=== PATIENT | male | born 1975 | race Caucasian/White ===

== ENCOUNTER 2016-08-06 18:48 | Emergency (ER) | payer MEDICARE, MEDICAID ==
--- NOTE | 2016-08-06 19:22 | EDM.PDOC ---
ED HPI GI/ABDOMINAL - General Stated Complaint: hemorrhoids, anxiety Time Seen by Provider: 08/06/16 18:49 Source: Reports: Patient History Limitations: Reports: No limitations - History of Present Illness INITIAL COMMENTS - FREE TEXT/NARRATIVE: 41 years old w m with h/o Diverticulosis, was on Abx for 2 weeks, came to the ed due to perianal complains, thinking he has hemorrhoids. Pt is scheduled for a colonoscopy on 08/20/2015 in [place]. Pt denies N/V/D. Symptom Onset Date: 07/30/16 Symptom Onset Time: 06:00 Timing/Duration: Reports: Day(s):, Week(s):, Intermittent Location: other (perianal) Quality: Reports: ache, burning Severity: mild Worsens with: Reports: defecating Associated Symptoms: Reports: denies other symptoms - Related Data Allergies/ADRs: Allergies Allergy/AdvReac Type Severity Reaction Status Date / Time amoxicillin Allergy Rash Verified 06/26/16 17:11 Penicillins Allergy Rash Verified 06/26/16 17:11 povidone-iodine Allergy Rash Verified 06/26/16 17:11 [From Betadine] soap [From Betadine] Allergy Rash Verified 06/26/16 17:11 Home Meds: Home Meds Citalopram Hydrobromide [Celexa] 20 tab PO DAILY 03/05/16 [History] clonazePAM [Klonopin] 1 tab PO ASDIRECTED PRN 03/05/16 [History] Hydrochlorothiazide 25 mg PO DAILY 06/06/16 [History] Past Medical History - Past Health History Medical/Surgical History: Denies Medical/Surgical History Cardiovascular History: Reports: Hypertension Gastrointestinal History: Reports: GERD, Other (see below) Other Gastrointestinal History: Lactose Intolerance Psychiatric History: Reports: ADHD, Anxiety, Bipolar, PTSD, Suicide attempt - Infectious Disease History Infectious Disease History: Reports: C-difficile, Shingles - Past Surgical History GI Surgical History: Reports: Small bowel, Other (see below) Other GI Surgeries/Procedures: Colostomy placed as an , has since been reversed. Musculoskeletal Surgical History: Reports: Other (see below) Other Musculoskeletal Surgeries/Procedures:: Leg surgery as a child. Social & Family History - Family History Family Medical History: Noncontributory - Tobacco Use Smoking Status *Q: Never Smoker Years of Tobacco use: 6 Second Hand Smoke Exposure: No - Caffeine Use Caffeine Use: Reports: Coffee, Energy drinks, Soda, Tea - Alcohol Use Days Per Week of Alcohol Use: 0 - Recreational Drug Use Recreational Drug Use: No Drug Use in Last 12 Months: No ED ROS GENERAL - Review of Systems Review Of Systems: See Below Constitutional: Reports: no symptoms HEENT: Reports: No symptoms Respiratory: Reports: No Symptoms Cardiovascular: Reports: No symptoms Endocrine: Reports: no symptoms GI/Abdominal: Reports: Other (peianal pain) : Reports: no symptoms Musculoskeletal: Reports: no symptoms Skin: Reports: no symptoms Neurological: Reports: No Symptoms Psychiatric: Reports: No symptoms Hematologic/Lymphatic: Reports: no symptoms Immunologic: Reports: no symptoms ED EXAM, GI/ABD - Physical Exam Exam: See Below Exam Limited By: No limitations General Appearance: alert, WD/WN, mild distress Eyes: bilateral: normal appearance, EOMI Ears: normal external exam, normal canal, hearing grossly normal Nose: normal inspection, normal mucosa, no blood Throat/Mouth: Normal inspection, Normal lips, Normal teeth, Normal gums, Normal oropharynx, Normal voice, No airway compromise Head: atraumatic, normocephalic Neck: normal inspection, supple, non-tender, full range of motion Respiratory/Chest: no respiratory distress, lungs clear, normal breath sounds, no accessory muscle use, chest non-tender Cardiovascular: normal peripheral pulses, regular rate, rhythm, no edema, no gallop, no JVD, no murmur, no rub GI/Abdominal: normal bowel sounds, soft, non tender, no organomegaly, no distention, no abnormal bruit, other (perianal ulcer/erythema) (Male) Exam: No hernia, Normal inspection Rectal (Males) Exam: Normal rectal tone, Other (perianal erythema and ulcer) Back Exam: normal inspection, full range of motion, NT Extremities: normal inspection, normal range of motion, non-tender, normal capillary refill, no pedal edema Neurological: alert, oriented, CN II-XII intact, normal cognition, normal gait, normal reflexes, no motor/sensory deficits Psychiatric: normal affect, normal mood Skin Exam: Warm, Dry, Intact, Normal color, Other (please see not above) Lymphatic: no adenopathy Course - Vital Signs Text/Narrative:: 41 years old w m with h/o Diverticulosis, was on Abx for 2 weeks, came to the ed due to perianal complains, thinking he has hemorrhoids. Pt is scheduled for a colonoscopy on 08/20/2015 in [place]. Pt denies N/V/D. PE: Perianal erythema and ulcer Impression: Perianal erythema with ulcer Plan: Sitzbath and f/u on 08/19/2016 as scheduled Departure - Departure Time of Disposition: 19:28 Disposition: Home, Self-Care 01 Condition: good Clinical Impression: Erythema of perianal area Additional Instructions: Please apply sitzbath twice daily, please f/u as scheduled on 08/19/2016 as scheduled, please come back to the ed if your symptoms get worse acutely
[2016-08-06 20:01] VITALS: BP 142/90
== END 2016-08-06 20:02 | disposition home or self-care (01) ==
LOC: FB.ED 18:48
DX: L53.8 Other specified erythematous conditions (principal); I10 Essential (primary) hypertension; K21.9 Gastro-esophageal reflux disease without esophagitis; F41.9 Anxiety disorder, unspecified; Z88.0 Allergy status to penicillin; Z88.1 Allergy status to other antibiotic agents; Z91.09 Other allergy status, other than to drugs and biological substances; Z79.899 Other long term (current) drug therapy
CPT/HCPCS: 99282

== ENCOUNTER 2016-08-16 20:09 | Emergency (ER) | payer MEDICARE, MEDICAID ==
[2016-08-16 20:27] VITALS: BP 148/94
[2016-08-16] MEDS ORDERED: Potassium Chloride 20 MEQ Tab.ER PO ONE (21:41)
--- NOTE | 2016-08-16 21:42 | EDM.PDOC ---
ED HPI GI/ABDOMINAL - General Chief Complaint: Abdominal Pain Stated Complaint: LOW ABD PAIN Time Seen by Provider: 08/16/16 20:20 Source: Reports: Patient History Limitations: Reports: No limitations - History of Present Illness INITIAL COMMENTS - FREE TEXT/NARRATIVE: 41 years old w m came to the ed due to mild discomfort at his LLQ of his abdomen. Pt had an abscess at his sigmoid Dx'd 3 months ago. No trauma, no N/V/ D. No dysuria. Pt runs daily marathon. Symptom Onset Date: 08/14/16 Symptom Onset Time: 07:00 Location: [facility] Quality: Reports: fullness Severity: mild Improves with: Reports: lying down Worsens with: Reports: sitting up Context: Reports: other (running) Associated Symptoms: Reports: denies other symptoms - Related Data Allergies/ADRs: Allergies Allergy/AdvReac Type Severity Reaction Status Date / Time amoxicillin Allergy Rash Verified 08/16/16 20:18 Penicillins Allergy Rash Verified 08/16/16 20:18 povidone-iodine Allergy Rash Verified 08/16/16 20:18 [From Betadine] soap [From Betadine] Allergy Rash Verified 08/16/16 20:18 Home Meds: Home Meds Citalopram Hydrobromide [Celexa] 20 tab PO DAILY 03/05/16 [History] clonazePAM [Klonopin] 1 tab PO ASDIRECTED PRN 03/05/16 [History] Hydrochlorothiazide 25 mg PO DAILY 06/06/16 [History] Past Medical History - Past Health History Medical/Surgical History: Denies Medical/Surgical History Cardiovascular History: Reports: Hypertension Gastrointestinal History: Reports: GERD, Other (see below) Other Gastrointestinal History: Lactose Intolerance Psychiatric History: Reports: ADHD, Anxiety, Bipolar, PTSD, Suicide attempt - Infectious Disease History Infectious Disease History: Reports: C-difficile, Shingles - Past Surgical History GI Surgical History: Reports: Small bowel, Other (see below) Other GI Surgeries/Procedures: Colostomy placed as an , has since been reversed. Musculoskeletal Surgical History: Reports: Other (see below) Other Musculoskeletal Surgeries/Procedures:: Leg surgery as a child. Social & Family History - Family History Family Medical History: Noncontributory - Tobacco Use Smoking Status *Q: Never Smoker Years of Tobacco use: 6 Second Hand Smoke Exposure: No - Caffeine Use Caffeine Use: Reports: Soda - Alcohol Use Days Per Week of Alcohol Use: 0 - Recreational Drug Use Recreational Drug Use: No Drug Use in Last 12 Months: No ED ROS GENERAL - Review of Systems Review Of Systems: See Below Constitutional: Reports: no symptoms HEENT: Reports: No symptoms Respiratory: Reports: No Symptoms Cardiovascular: Reports: No symptoms Endocrine: Reports: no symptoms GI/Abdominal: Reports: Other (minimal discomfort LLQ of abdomen) : Reports: no symptoms Musculoskeletal: Reports: no symptoms Skin: Reports: no symptoms Neurological: Reports: No Symptoms Psychiatric: Reports: Anxiety Hematologic/Lymphatic: Reports: no symptoms Immunologic: Reports: no symptoms ED EXAM, GI/ABD - Physical Exam Exam: See Below Exam Limited By: No limitations General Appearance: alert, WD/WN, no apparent distress Eyes: bilateral: normal appearance Ears: normal external exam Nose: normal inspection Throat/Mouth: Normal inspection Head: atraumatic, normocephalic Neck: normal inspection, supple, non-tender Respiratory/Chest: no respiratory distress, lungs clear, normal breath sounds, no accessory muscle use Cardiovascular: normal peripheral pulses, regular rate, rhythm, no edema GI/Abdominal: tenderness (minimal LLQ abd. tenderness) (Male) Exam: No hernia, Normal inspection Rectal (Males) Exam: Deferred Back Exam: normal inspection, full range of motion Extremities: normal inspection, normal range of motion, non-tender, no pedal edema, normal capillary refill Neurological: alert Psychiatric: normal affect, normal mood Skin Exam: Warm, Dry, Intact, Normal color, No rash Lymphatic: no adenopathy Course - Vital Signs Text/Narrative:: 41 years old w m came to the ed due to mild discomfort at his LLQ of his abdomen. Pt had an abscess at his sigmoid Dx'd 3 months ago. No trauma, no N/V/ D. No dysuria. Pt runs daily marathon. PE: Minor discomfort LLQ of abdomen. Labs: NL WBC potassium 3.2 Impression: Hypokalmia Tx: Potassium 40meq Reexam: Improved Plan: D/C with instructions Last Recorded V/S: Last Vital Signs Temp 37.1 C 08/16/16 20:20 Pulse 85 08/16/16 20:20 Resp 18 08/16/16 20:20 BP 148/94 H 08/16/16 20:20 Pulse Ox 98 08/16/16 20:20 - Orders/Labs/Meds Labs: Laboratory Tests 08/16/16 08/16/16 08/16/16 Range/Units 20:35 20:35 20:35 WBC 5.4 (4.5-12.0) X10-3/uL RBC 4.64 (4.30-5.75) x10(6)uL Hgb 13.7 (11.5-15.5) g/dL Hct 39.7 (30.0-51.3) % MCV 85.4 (80-96) fL MCH 29.6 (27.7-33.6) pg MCHC 34.7 (32.2-35.4) g/dL RDW 14.1 (11.5-15.5) % Plt Count 182 (125-369) X10(3)uL MPV 9.0 (7.4-10.4) fL Neut % (Auto) 67.4 (46-82) % Lymph % (Auto) 23.2 (13-37) % [place] % (Auto) 7.3 (4-12) % Eos % (Auto) 1 (1.0-5.0) % Baso % (Auto) 1 (0-2) % Neut # (Auto) 3.6 (1.6-8.3) # Lymph # (Auto) 1.3 (0.6-5.0) # [place] # (Auto) 0.4 (0.0-1.3) # Eos # (Auto) 0.0 (0.0-0.8) # Baso # (Auto) 0.1 (0.0-0.2) # Sodium 138 (135-145) mmol/L Potassium 3.2 L (3.5-5.3) mmol/L Chloride 101 (100-110) mmol/L Carbon Dioxide 30 H (23-29) mmol/L BUN 15 (5-20) mg/dL Creatinine 1.0 (0.6-1.3) mg/dL Est Cr Clr Drug Dosing TNP Estimated GFR (MDRD) > 60 (>60) BUN/Creatinine Ratio 15.0 (9-20) Glucose 98 (80-116) mg/dL Calcium 10.5 H (8.6-10.2) mg/dL C-Reactive Protein < 0.5 (0.0-1.0) mg/dL Urine Color (YELLOW) Urine Appearance (CLEAR) Urine pH (5.0-6.5) Ur Specific [place] (1.010-1.025) Urine Protein (NEGATIVE) mg/dL Urine Glucose (UA) (NEGATIVE) mg/dL Urine Ketones (NEGATIVE) mg/dL Urine Occult Blood (NEGATIVE) Urine Nitrite (NEGATIVE) Urine Bilirubin (NEGATIVE) Urine Urobilinogen (NEGATIVE) mg/dL Ur Leukocyte Esterase (NEGATIVE) Urine RBC (0) Urine WBC (0) Ur Squamous Epith Cells (NS,R,O) Urine Bacteria (NS) Urine Opiates Screen Negative (NEGATIVE) Ur Oxycodone Screen Negative (NEGATIVE) Ur Propoxyphene Screen Negative (NEGATIVE) Ur Barbituates Screen Negative (NEGATIVE) Ur Tricyclics Screen Negative (NEGATIVE) Ur Phencyclidine Scrn Negative (NEGATIVE) Ur Amphetamine Screen Negative (NEGATIVE) Urine MDMA Screen Negative (NEGATIVE) U Benzodiazepines Scrn Negative (NEGATIVE) U Cocaine Metab Screen Negative (NEGATIVE) U Marijuana (THC) Screen Negative (NEGATIVE) 08/16/16 Range/Units 20:35 WBC (4.5-12.0) X10-3/uL RBC (4.30-5.75) x10(6)uL Hgb (11.5-15.5) g/dL Hct (30.0-51.3) % MCV (80-96) fL MCH (27.7-33.6) pg MCHC (32.2-35.4) g/dL RDW (11.5-15.5) % Plt Count (125-369) X10(3)uL MPV (7.4-10.4) fL Neut % (Auto) (46-82) % Lymph % (Auto) (13-37) % [place] % (Auto) (4-12) % Eos % (Auto) (1.0-5.0) % Baso % (Auto) (0-2) % Neut # (Auto) (1.6-8.3) # Lymph # (Auto) (0.6-5.0) # [place] # (Auto) (0.0-1.3) # Eos # (Auto) (0.0-0.8) # Baso # (Auto) (0.0-0.2) # Sodium (135-145) mmol/L Potassium (3.5-5.3) mmol/L Chloride (100-110) mmol/L Carbon Dioxide (23-29) mmol/L BUN (5-20) mg/dL Creatinine (0.6-1.3) mg/dL Est Cr Clr Drug Dosing Estimated GFR (MDRD) (>60) BUN/Creatinine Ratio (9-20) Glucose (80-116) mg/dL Calcium (8.6-10.2) mg/dL C-Reactive Protein (0.0-1.0) mg/dL Urine Color Yellow (YELLOW) Urine Appearance Clear (CLEAR) Urine pH 7.0 H (5.0-6.5) Ur Specific [place] 1.015 (1.010-1.025) Urine Protein Negative (NEGATIVE) mg/dL Urine Glucose (UA) Normal (NEGATIVE) mg/dL Urine Ketones Negative (NEGATIVE) mg/dL Urine Occult Blood Negative (NEGATIVE) Urine Nitrite Negative (NEGATIVE) Urine Bilirubin Negative (NEGATIVE) Urine Urobilinogen Normal (NEGATIVE) mg/dL Ur Leukocyte Esterase Negative (NEGATIVE) Urine RBC 0-5 (0) Urine WBC 0-5 (0) Ur Squamous Epith Cells Few H (NS,R,O) Urine Bacteria Few H (NS) Urine Opiates Screen (NEGATIVE) Ur Oxycodone Screen (NEGATIVE) Ur Propoxyphene Screen (NEGATIVE) Ur Barbituates Screen (NEGATIVE) Ur Tricyclics Screen (NEGATIVE) Ur Phencyclidine Scrn (NEGATIVE) Ur Amphetamine Screen (NEGATIVE) Urine MDMA Screen (NEGATIVE) U Benzodiazepines Scrn (NEGATIVE) U Cocaine Metab Screen (NEGATIVE) U Marijuana (THC) Screen (NEGATIVE) Meds: Medications Discontinued Medications Generic Name Dose Route Start Last Admin Trade Name Freq PRN Reason Stop Dose Admin Potassium Chloride 40 meq 08/16/16 21:41 08/16/16 21:44 Klor-Con M20 PO 08/16/16 21:42 40 meq ONETIME ONE Administration Departure - Departure Time of Disposition: 21:42 Disposition: Home, Self-Care 01 Condition: good Clinical Impression: Hypokalemia Referrals: Eliel Flores MD [Primary Care Provider] - Forms: ED Department Discharge Additional Instructions: Please f/u, please come back if symptoms get worse acutely.
== END 2016-08-16 21:50 | disposition home or self-care (01) ==
LOC: FB.ED 20:09
DX: E87.6 Hypokalemia (principal); R10.32 Left lower quadrant pain; I10 Essential (primary) hypertension; K21.9 Gastro-esophageal reflux disease without esophagitis; F31.9 Bipolar disorder, unspecified; F41.9 Anxiety disorder, unspecified; Z88.1 Allergy status to other antibiotic agents; Z88.0 Allergy status to penicillin; Z88.8 Allergy status to other drugs, medicaments and biological substances; Z79.899 Other long term (current) drug therapy; Z91.09 Other allergy status, other than to drugs and biological substances
CPT/HCPCS: 36415; 80048; 80305; 81001; 85025; 86140; 99283; 99284; A9270

== ENCOUNTER 2016-08-21 01:54 | Emergency (ER) | payer MEDICARE, MEDICAID ==
[2016-08-21 02:15] VITALS: BP 159/98
--- NOTE | 2016-08-21 02:18 | EDM.PDOC ---
ED HPI GENERAL MEDICAL PROBLEM - General Chief Complaint: General Stated Complaint: TOOTH PAIN Time Seen by Provider: 08/21/16 02:11 Source of Information: Reports: Patient History Limitations: Reports: No limitations - History of Present Illness INITIAL COMMENTS - FREE TEXT/NARRATIVE: 41 years old w m came to the ed due to worsening of tooth ache> pt has seen a dentist a few days ago and was told to see max facial surgeon to pull the the tooth. No trauma, pt does not smoke or drink. Pt was in this ed for various issues. pain is rated as 10/10. Pt denies any other acute medical issues at this time. Onset: gradual Onset Date: 08/20/16 Onset Time: 08:00 Duration: Day(s):, Intermittent Location: Reports: face Quality: Reports: Burning, Dull, Pressure, Stabbing Severity: moderate Improves with: Reports: Medication Worsens with: Reports: Cold therapy Associated Symptoms: Reports: denies other symptoms Tooth/Teeth Pain Score (Numeric/FACES): 10 - Related Data Allergies Allergy/AdvReac Type Severity Reaction Status Date / Time amoxicillin Allergy Rash Verified 08/21/16 02:09 Penicillins Allergy Rash Verified 08/21/16 02:09 povidone-iodine Allergy Rash Verified 08/21/16 02:09 [From Betadine] soap [From Betadine] Allergy Rash Verified 08/21/16 02:09 Home Meds: Home Meds Citalopram Hydrobromide [Celexa] 20 tab PO DAILY 03/05/16 [History] clonazePAM [Klonopin] 1 tab PO ASDIRECTED PRN 03/05/16 [History] Hydrochlorothiazide 25 mg PO DAILY 06/06/16 [History] Clindamycin HCl [Cleocin] 300 mg PO QID 08/21/16 [History] Past Medical History - Past Health History Medical/Surgical History: Denies Medical/Surgical History Cardiovascular History: Reports: Hypertension Gastrointestinal History: Reports: GERD, Other (see below) Other Gastrointestinal History: Lactose Intolerance Psychiatric History: Reports: ADHD, Anxiety, Bipolar, PTSD, Suicide attempt - Infectious Disease History Infectious Disease History: Reports: C-difficile, Shingles - Past Surgical History GI Surgical History: Reports: Small bowel, Other (see below) Other GI Surgeries/Procedures: Colostomy placed as an , has since been reversed. Musculoskeletal Surgical History: Reports: Other (see below) Other Musculoskeletal Surgeries/Procedures:: Leg surgery as a child. Social & Family History - Family History Family Medical History: Noncontributory - Tobacco Use Smoking Status *Q: Never Smoker Years of Tobacco use: 6 Second Hand Smoke Exposure: No - Caffeine Use Caffeine Use: Reports: Soda - Alcohol Use Days Per Week of Alcohol Use: 0 - Recreational Drug Use Recreational Drug Use: No Drug Use in Last 12 Months: No ED ROS GENERAL - Review of Systems Review Of Systems: See Below Constitutional: Reports: no symptoms HEENT: Reports: Throat pain Respiratory: Reports: No Symptoms Cardiovascular: Reports: No symptoms Endocrine: Reports: no symptoms GI/Abdominal: Reports: No symptoms : Reports: no symptoms Musculoskeletal: Reports: no symptoms Skin: Reports: no symptoms Neurological: Reports: No Symptoms Psychiatric: Reports: No symptoms Hematologic/Lymphatic: Reports: no symptoms Immunologic: Reports: no symptoms ED EXAM, GENERAL - Physical Exam Exam: See Below Exam Limited By: No limitations General Appearance: alert, WD/WN, mild distress Eye Exam: bilateral eye: normal inspection Ears: normal external exam, normal canal Ear Exam: bilateral ear: auricle normal Nose: normal inspection, normal mucosa, no blood Throat/Mouth: Other (poor dentition, Tooth# 20 decyed) Head: atraumatic, normocephalic Neck: normal inspection, supple, non-tender, full range of motion Respiratory/Chest: no respiratory distress, lungs clear, normal breath sounds, no accessory muscle use, chest non-tender Cardiovascular: normal peripheral pulses, regular rate, rhythm, no edema, no JVD Peripheral Pulses: 2+: femoral (L), femoral (R) GI/Abdominal: normal bowel sounds, soft, non tender (Male) Exam: Deferred Rectal (Males) Exam: Deferred Back Exam: normal inspection, full range of motion Extremities: normal inspection, normal range of motion, non-tender, no pedal edema, normal capillary refill Neurological: alert, oriented, CN II-XII intact, normal cognition, normal gait, no motor/sensory deficits Psychiatric: normal affect, normal mood Skin Exam: Warm, Dry, Intact, Normal color, No rash Lymphatic: no adenopathy Course - Vital Signs Text/Narrative:: 41 years old w m came to the ed due to worsening of tooth ache> pt has seen a dentist a few days ago and was told to see max facial surgeon to pull the the tooth. No trauma, pt does not smoke or drink. Pt was in this ed for various issues. pain is rated as 10/10. Pt denies any other acute medical issues at this time. Pt is on clindamycin. PE: Poor dentition Tooth #20 decayed Impression: poor dentition Tx: Pain meds. Plan: D/C home with instructions Last Recorded V/S: Last Vital Signs Temp 35.3 C 08/21/16 02:11 Pulse 53 L 08/21/16 02:11 Resp 20 08/21/16 02:11 BP 159/98 H 08/21/16 02:11 Pulse Ox 100 08/21/16 02:11 Departure - Departure Time of Disposition: 02:23 Disposition: Home, Self-Care 01 Condition: good Clinical Impression: Toothache, Gingivitis, Poor dentition Instructions: Tooth Injuries, [id number] Referrals: Eliel Flores MD [Primary Care Provider] - Forms: ED Department Discharge Additional Instructions: Please see a dentis a.s.a.p, please take tylenol/motrin/percoset for pain, please cont ABX. please come back if your symptoms get worse acutely.
[2016-08-21] MEDS ORDERED: Acetaminophen/oxyCODONE 325-5 MG Tab PO ONE (02:24)
== END 2016-08-21 02:30 | disposition home or self-care (01) ==
LOC: FB.ED 01:54
DX: K05.10 Chronic gingivitis, plaque induced (principal); K08.89 Other specified disorders of teeth and supporting structures; K00.7 Teething syndrome; I10 Essential (primary) hypertension; K21.9 Gastro-esophageal reflux disease without esophagitis; F41.9 Anxiety disorder, unspecified; F31.9 Bipolar disorder, unspecified; Z88.1 Allergy status to other antibiotic agents; Z88.0 Allergy status to penicillin; Z91.09 Other allergy status, other than to drugs and biological substances; Z79.899 Other long term (current) drug therapy
CPT/HCPCS: 99282; A9270; 99283

== ENCOUNTER 2016-08-29 14:19 | Emergency (ER) | payer MEDICARE, MEDICAID ==
[2016-08-29 15:09] VITALS: BP 157/105
--- NOTE | 2016-08-29 16:10 | EDM.PDOC ---
ED HPI Trauma - General Chief Complaint: Lower Extremity Injury/Pain Stated Complaint: lt foot pain and jaw pain Time Seen by Provider: 08/29/16 15:05 Source: Reports: Patient History Limitations: Reports: No limitations - History of Present Illness INITIAL COMMENTS - FREE TEXT/NARRATIVE: c/o jaw pain and swollen L foot pt had tooth removed ~6d ago in [place] by an oral surgeon, he was on clindamycin but stopped it d/t "red shelby" on legs altho not clear that he had an allergy, off of pain meds, still some pain there, not taking meds for the pain, pain not severe, no swell, no d/c, no fever his main concern is mild edema of both feet which he has had before, did have a BUN/creat 22/1.4 in ED 1w ago, previously 15/1.0 2w ago h/o abd abscess 2m ago, in hospital in [place] x 3d, tx antbxs, no surgery, thought d/t possible diverticuli, located next to colon, colonoscopy planned on 08/05 but pt did not have transportation to [place] on HCTZ and lisinopril daily which may account for his borderline renal function u/a neg 2w ago, CRP <0.5 2w ago Allergies/ADRs: Allergies amoxicillin Allergy (Verified 08/29/16 14:34) Rash Penicillins Allergy (Verified 08/29/16 14:34) Rash povidone-iodine [From Betadine] Allergy (Verified 08/29/16 14:34) Rash soap [From Betadine] Allergy (Verified 08/29/16 14:34) Rash Home Medications: Ambulatory Orders Citalopram Hydrobromide [Celexa] 20 tab PO DAILY 03/05/16 [Confirmed 08/29/16] clonazePAM [Klonopin] 1 tab PO ASDIRECTED PRN 03/05/16 [Confirmed 08/29/16] Hydrochlorothiazide 25 mg PO DAILY 06/06/16 [Confirmed 08/29/16] Potassium Chloride 10 meq PO DAILY #30 capsule.er 08/29/16 Past Medical History - Past Health History Medical/Surgical History: Denies Medical/Surgical History Cardiovascular History: Reports: Hypertension Gastrointestinal History: Reports: GERD, Other (see below) Other Gastrointestinal History: Lactose Intolerance Psychiatric History: Reports: ADHD, Anxiety, Bipolar, PTSD, Suicide attempt - Infectious Disease History Infectious Disease History: Reports: C-difficile, Shingles - Past Surgical History GI Surgical History: Reports: Small bowel, Other (see below) Other GI Surgeries/Procedures: Colostomy placed as an , has since been reversed. Musculoskeletal Surgical History: Reports: Other (see below) Other Musculoskeletal Surgeries/Procedures:: Leg surgery as a child. Social & Family History - Family History Family Medical History: Noncontributory - Tobacco Use Smoking Status *Q: Never Smoker Years of Tobacco use: 6 Second Hand Smoke Exposure: No - Caffeine Use Caffeine Use: Reports: Soda - Alcohol Use Days Per Week of Alcohol Use: 0 - Recreational Drug Use Recreational Drug Use: No Drug Use in Last 12 Months: No Review of Systems - Review of Systems Review Of Systems: See Below Constitutional: Reports: no symptoms Eyes: Reports: no symptoms Ears: Reports: no symptoms Nose: Reports: no symptoms Mouth/Throat: Reports: other (dental pain) Respiratory: Reports: No Symptoms Cardiovascular: Reports: edema GI/Abdominal: Reports: No symptoms Genitourinary: Reports: no symptoms Musculoskeletal: Reports: no symptoms Skin: Reports: no symptoms Neurological: Reports: No Symptoms Psychiatric: Reports: no symptoms Trauma Exam - Physical Exam Exam: See Below Exam Limited By: No limitations General Appearance: Reports: alert, WD/WN, no apparent distress Head: Reports: atraumatic, normocephalic Eyes: bilateral eye: EOMI, normal inspection, PERRL Ears: Reports: normal external exam, hearing grossly normal Nose: Reports: normal inspection, normal mucousa, no blood Throat/Mouth: Reports: Normal inspection, Normal lips, Normal gums, Normal oropharynx, Normal voice, No airway compromise, Other (tooth #17 missing, no swell, no red, no d/c, appears to be healing well, mild tender to palpation with tongue depressor, neck with no cervical LNs, no face swell) Neck: Reports: non-tender, full range of motion, normal alignment, normal inspection Respiratory Exam: Reports: no respiratory distress, lungs clear, normal breath sounds Cardiovascular: Reports: regular rate, rhythm, no edema, no gallop, no murmur, no rub Back: Reports: full range of motion, normal inspection, non-tender Extremities: Reports: no evidence of injury, normal range of motion, non-tender , other (1+ edema to knees b/l including feet and ankle, L slight greater than R , no cords, no Homans) Neurologic: Reports: 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 II-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 nml as tested, no motor/sensory deficits, alert , normal mood/affect, oriented x 3 Skin: Reports: Normal color, Warm/dry Course - Vital Signs Last Recorded V/S: Last Vital Signs Temp 36.3 C 08/29/16 14:30 Pulse 59 L 08/29/16 14:30 Resp 18 08/29/16 14:30 BP 157/105 H 08/29/16 15:02 Pulse Ox 100 08/29/16 14:30 - Orders/Labs/Meds Labs: Laboratory Tests 08/29/16 08/29/16 08/29/16 Range/Units 15:30 15:30 15:30 WBC 4.6 (4.5-12.0) X10-3/uL RBC 4.70 (4.30-5.75) x10(6)uL Hgb 13.8 (11.5-15.5) g/dL Hct 40.5 (30.0-51.3) % MCV 86.1 (80-96) fL MCH 29.4 (27.7-33.6) pg MCHC 34.1 (32.2-35.4) g/dL RDW 13.5 (11.5-15.5) % Plt Count 177 (125-369) X10(3)uL MPV 7.6 (7.4-10.4) fL Neut % (Auto) 73.9 (46-82) % Lymph % (Auto) 19.1 (13-37) % [place] % (Auto) 5.3 (4-12) % Eos % (Auto) 1 (1.0-5.0) % Baso % (Auto) 0 (0-2) % Neut # (Auto) 3.4 (1.6-8.3) # Lymph # (Auto) 0.9 (0.6-5.0) # [place] # (Auto) 0.2 (0.0-1.3) # Eos # (Auto) 0.1 (0.0-0.8) # Baso # (Auto) 0.0 (0.0-0.2) # D-Dimer, Quantitative 105 (100-400) ng/mL Sodium 138 (135-145) mmol/L Potassium 3.3 L (3.5-5.3) mmol/L Chloride 100 (100-110) mmol/L Carbon Dioxide 30 H (23-29) mmol/L BUN 13 (5-20) mg/dL Creatinine 1.0 (0.6-1.3) mg/dL Est Cr Clr Drug Dosing TNP Estimated GFR (MDRD) > 60 (>60) BUN/Creatinine Ratio 13.0 (9-20) Glucose 92 (80-116) mg/dL Calcium 10.4 H (8.6-10.2) mg/dL Total Bilirubin 0.8 (0.1-1.3) mg/dL AST 28 H (5-27) IU/L ALT 37 H D (14-26) IU/L Alkaline Phosphatase 45 L (56-112) IU/L Troponin I (0.02-0.06) NG/ML C-Reactive Protein < 0.5 (0.0-1.0) mg/dL B-Natriuretic Peptide (0-100) pg/mL Total Protein 7.2 (6.0-8.0) g/dL Albumin 4.3 (3.5-5.2) g/dL Globulin 2.9 g/dL Albumin/Globulin Ratio 1.5 08/29/16 08/29/16 Range/Units 15:30 15:30 WBC (4.5-12.0) X10-3/uL RBC (4.30-5.75) x10(6)uL Hgb (11.5-15.5) g/dL Hct (30.0-51.3) % MCV (80-96) fL MCH (27.7-33.6) pg MCHC (32.2-35.4) g/dL RDW (11.5-15.5) % Plt Count (125-369) X10(3)uL MPV (7.4-10.4) fL Neut % (Auto) (46-82) % Lymph % (Auto) (13-37) % [place] % (Auto) (4-12) % Eos % (Auto) (1.0-5.0) % Baso % (Auto) (0-2) % Neut # (Auto) (1.6-8.3) # Lymph # (Auto) (0.6-5.0) # [place] # (Auto) (0.0-1.3) # Eos # (Auto) (0.0-0.8) # Baso # (Auto) (0.0-0.2) # D-Dimer, Quantitative (100-400) ng/mL Sodium (135-145) mmol/L Potassium (3.5-5.3) mmol/L Chloride (100-110) mmol/L Carbon Dioxide (23-29) mmol/L BUN (5-20) mg/dL Creatinine (0.6-1.3) mg/dL Est Cr Clr Drug Dosing Estimated GFR (MDRD) (>60) BUN/Creatinine Ratio (9-20) Glucose (80-116) mg/dL Calcium (8.6-10.2) mg/dL Total Bilirubin (0.1-1.3) mg/dL AST (5-27) IU/L ALT (14-26) IU/L Alkaline Phosphatase (56-112) IU/L Troponin I < 0.01 L (0.02-0.06) NG/ML C-Reactive Protein (0.0-1.0) mg/dL B-Natriuretic Peptide 55 (0-100) pg/mL Total Protein (6.0-8.0) g/dL Albumin (3.5-5.2) g/dL Globulin g/dL Albumin/Globulin Ratio - Re-Assessments/Exams Free Text/Narrative Re-Assessment/Exam: 08/29/16 16:18 labs reviewed, has had Rx in past for K put not taken it, "I just buy a bunch of spinach and eat a lot of that", renal function now wnl, no cardiac issues, edema c/w gravity Departure - Departure Time of Disposition: 16:19 Disposition: DC/Tfer W/I Hosp To Swing 61 Condition: good Clinical Impression: Dependent edema, Hypokalemia Prescriptions: Potassium Chloride 10 meq PO DAILY #30 capsule.er Forms: ED Department Discharge Additional Instructions: Continue current meds. To replace potassium, take 10 meq 1 tab daily. For pain and inflammation, take ibuprofen 200 mg 3 tabs and acetaminophen 325 mg 2 tabs 4 times a day. May elevate legs in evening to allow gravity to help drain fluid from legs. See your doctor in 2-3 days.
== END 2016-08-29 16:25 | disposition home or self-care (01) ==
LOC: FB.ED 14:19
DX: E87.6 Hypokalemia (principal); R60.0 Localized edema; I10 Essential (primary) hypertension; K21.9 Gastro-esophageal reflux disease without esophagitis; F41.9 Anxiety disorder, unspecified; F31.9 Bipolar disorder, unspecified; Z88.0 Allergy status to penicillin; Z88.1 Allergy status to other antibiotic agents; Z98.890 Other specified postprocedural states; Z91.09 Other allergy status, other than to drugs and biological substances
CPT/HCPCS: 36415; 80053; 83880; 84484; 85025; 85379; 86140; 99283

== ENCOUNTER 2016-09-14 21:47 | Emergency (ER) | payer MEDICARE, MEDICAID ==
--- NOTE | 2016-09-14 22:40 | EDM.PDOC ---
ED HPI GENERAL MEDICAL PROBLEM - General Chief Complaint: General Stated Complaint: GENERAL Time Seen by Provider: 09/14/16 22:00 Source of Information: Reports: Patient, Old records History Limitations: Reports: No limitations - History of Present Illness INITIAL COMMENTS - FREE TEXT/NARRATIVE: Hubert is known to this ED with a PMH of anxiety disorder and probable PTSD since 2004. This evening he was experiencing a strange sensation of tingling in his ears, and was concerned that his BP was elevated. There was no corresponding headache, dizziness, visual disturbance, nausea, palpitations or dyspnea. Nursing confirmed BPs were normotensive, and sxs seemed to improve. He is also reporting a vague sensation in the LLQ and was concerned about a disorder of the bowel. 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 There is no apurva abdominal pain, nausea, diarrhea or constipation. He takes numerous psychotrophic meds. He denies substance abuse. - Related Data Allergies Allergy/AdvReac Type Severity Reaction Status Date / Time amoxicillin Allergy Rash Verified 08/29/16 14:34 Penicillins Allergy Rash Verified 08/29/16 14:34 povidone-iodine Allergy Rash Verified 08/29/16 14:34 [From Betadine] soap [From Betadine] Allergy Rash Verified 08/29/16 14:34 Home Meds: Home Meds Citalopram Hydrobromide [Celexa] 20 tab PO DAILY 03/05/16 [History] clonazePAM [Klonopin] 1 tab PO ASDIRECTED PRN 03/05/16 [History] Hydrochlorothiazide 25 mg PO DAILY 06/06/16 [History] Potassium Chloride 10 meq PO DAILY #30 capsule.er 08/29/16 [Rx] Past Medical History - Past Health History Medical/Surgical History: Denies Medical/Surgical History Cardiovascular History: Reports: Hypertension Gastrointestinal History: Reports: GERD, Other (see below) Other Gastrointestinal History: Lactose Intolerance Psychiatric History: Reports: ADHD, Anxiety, Bipolar, PTSD, Suicide attempt - Infectious Disease History Infectious Disease History: Reports: C-difficile, Shingles - Past Surgical History GI Surgical History: Reports: Small bowel, Other (see below) Other GI Surgeries/Procedures: Colostomy placed as an , has since been reversed. Musculoskeletal Surgical History: Reports: Other (see below) Other Musculoskeletal Surgeries/Procedures:: Leg surgery as a child. Social & Family History - Family History Family Medical History: Noncontributory - Tobacco Use Smoking Status *Q: Never Smoker Years of Tobacco use: 6 Second Hand Smoke Exposure: No - Caffeine Use Caffeine Use: Reports: None - Alcohol Use Days Per Week of Alcohol Use: 0 - Recreational Drug Use Recreational Drug Use: No Drug Use in Last 12 Months: No ED ROS GENERAL - Review of Systems Review Of Systems: See Below Constitutional: Reports: no symptoms HEENT: Reports: Other (tingling in ears) Respiratory: Reports: No Symptoms Cardiovascular: Reports: No symptoms Endocrine: Reports: no symptoms GI/Abdominal: Reports: Other (tingling LLQ) : Reports: no symptoms Musculoskeletal: Reports: no symptoms Skin: Reports: no symptoms Neurological: Reports: No Symptoms Psychiatric: Reports: Anxiety Hematologic/Lymphatic: Reports: no symptoms Immunologic: Reports: no symptoms ED EXAM, GENERAL - Physical Exam Exam: See Below Exam Limited By: No limitations General Appearance: alert, WD/WN, no apparent distress, anxious Eye Exam: bilateral eye: normal fundi, normal inspection Ears: normal external exam, normal canal, hearing grossly normal, normal TMs Nose: normal inspection Throat/Mouth: Normal inspection, Normal lips, Normal teeth, Normal gums, Normal oropharynx, Normal voice Head: normocephalic Neck: normal inspection, supple, non-tender Respiratory/Chest: lungs clear Cardiovascular: regular rate, rhythm GI/Abdominal: normal bowel sounds, soft, non tender, no organomegaly, no distention, no mass (Male) Exam: No hernia Back Exam: normal inspection Extremities: normal inspection Neurological: alert, oriented, CN II-XII intact, normal cognition, normal gait, no motor/sensory deficits Psychiatric: normal affect, anxious Skin Exam: Warm, Dry, Intact, Normal color Lymphatic: no adenopathy Course - Vital Signs Text/Narrative:: Hubert remained stable at the [facility] ED, and interview continued reviewing past events associated with PTSD, He is currently x 2 years, with surviving parents. Last Recorded V/S: Last Vital Signs Temp 37.0 C 09/14/16 22:05 Pulse 76 09/14/16 22:05 Resp 18 09/14/16 22:05 BP 143/98 H 09/14/16 22:05 Pulse Ox 97 09/14/16 22:05 Departure - Departure Time of Disposition: 22:40 Disposition: Home, Self-Care 01 Condition: fair Clinical Impression: Post traumatic stress disorder (PTSD) Forms: ED Department Discharge - Problem List & Annotations (1) Post traumatic stress disorder (PTSD) SNOMED Code(s): 64186889 Code(s): F43.10 - POST-TRAUMATIC STRESS DISORDER, UNSPECIFIED Status: Acute Current Visit: Yes Annotation/Comment:: Somatic sxs appear consistent with underlying anxiety disorder such as PTSD and ZEE. He is on medication, and would benefit from resumption of CBT. No new meds dispensed for current sxs. - Problem List Review Problem List Initiated/Reviewed/Updated: Yes - Assessment/Plan Plan: Follow up with PCP, and consider behavioral therapy at the [facility] nearby.
[2016-09-14 22:46] VITALS: BP 134/66
== END 2016-09-14 22:47 | disposition home or self-care (01) ==
LOC: FB.ED 21:47
DX: F43.10 Post-traumatic stress disorder, unspecified (principal); I10 Essential (primary) hypertension; K21.9 Gastro-esophageal reflux disease without esophagitis; F41.9 Anxiety disorder, unspecified; F31.9 Bipolar disorder, unspecified; Z88.0 Allergy status to penicillin; Z88.1 Allergy status to other antibiotic agents; Z79.899 Other long term (current) drug therapy; Z98.890 Other specified postprocedural states; Z91.09 Other allergy status, other than to drugs and biological substances
CPT/HCPCS: 99283; 99284

== ENCOUNTER 2016-09-19 16:25 | Emergency (ER) | payer MEDICARE, MEDICAID ==
[2016-09-19 18:13] VITALS: BP 147/93
--- NOTE | 2016-09-20 04:13 | ER ---
DATE SEEN: 09/19/2016 TIME SEEN: The patient was seen at 1700 hours. CHIEF COMPLAINT: Left lower quadrant abdominal cramping with intermittent discomfort. HISTORY OF PRESENT ILLNESS: He notes he has been up jogging. He has gained weight since the last time I saw him. On 06/24/2016, he had head CT of the abdomen, which I performed, he had peritonitis, fat stranding, early Crohn's disease. He went to [place] that night and the surgeon thought perhaps he might go to surgery, but he was treated with conservative therapy the following day, did not have surgery, gradually progressively got better, has intermittent left lower quadrant abdominal discomfort. The pain today is 0/10 to 1/10 and earlier was 2/10 to 3/10, when he twists and turns, his abdomen after jogging, it gets to be 8-10, which lasts no more than 40 minutes, but lasts from 20 to 40 minutes. He denies vomiting, diarrhea, fever, back pain, arm pain, jaw pain, and neck pain. Denies blood in the stool. Denies frequency, urgency, dysuria, difficulty passing urine. PAST SURGICAL HISTORY: Previous surgery has been for his small bowel obstruction. ALLERGIES: Amoxicillin, penicillin, and iodine soaked-Betadine. OTHER PAST MEDICAL HISTORY: High blood pressure, GERD, lactose intolerance, ADHD, anxiety, suicide attempt, PTSD, previous history of C. 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 CURRENT MEDICATIONS: 1. Clonazepam 1 q.6 h. p.r.n. anxiety. 2. Potassium chloride 10 mEq daily. 3. Hydrochlorothiazide 25 mg daily. 4. Celexa 20 mg daily. REVIEW OF SYSTEMS: Negative except for noted above. PHYSICAL EXAMINATION: VITAL SIGNS: Blood pressure 162/96, heart rate 81, respirations 14, oxygen saturation 98%, temperature is 36.8 degrees centigrade, repeat blood pressure 147/93, heart rate 68, respirations 14, no change in respiration. The patient's weight 95.254 kilos, BMI 31.0 kilos/sq m. GENERAL: Alert, mildly overweight, from when I recognize his general appearance before. HEENT: PERRLA intact. Pharynx negative. He has decreased dental care from previously seen visits. No cervical adenopathy. No thyromegaly. LUNGS: Clear to auscultation without rales, rhonchi. HEART: S1, S2. No murmur. No irregular rate or rhythm. ABDOMEN: Soft, mild, midepigastric guarding and left upper quadrant guarding. No percussion or rebound. No heel tap rebound. Mild rebound left upper and midepigastric area. No CVA percussion tenderness. GENITALIA: Negative. EXTREMITIES: Lower extremities without edema. NEUROLOGIC: Not performed. LABORATORY FINDINGS: Laboratory findings are all normal. Lactate is normal at 0.9. C-reactive protein 0.6 (wanted C-reactive protein to compare what it had been in the past). White count is normal at 5200, PMNs 69, lymphs 22, monos 7, hemoglobin 13.6. Urinalysis negative except for few bacteria, few calcium oxalate crystals, the latter not unusual for the patient's Crohn disease, the patient can have high fevers, but I expect elevated uric acid, but he does not have uric acid stones. ASSESSMENT: Abdominal discomfort, intermittent cramping, probably secondary to ischemia/and/or scarring that occurred from his previous necrotizing partial small bowel resection, also recurrent Crohn's. He is stable currently. Not on any steroids or prednisone. PLAN: Follow up with the doctor in a week. Continue to run and jog and gradually progressively increase his exercise tolerance. He will have intermittent pain, not be pain-free as I think it will take a long time before there is change in scarring. It is possible his pain in the abdomen is secondary to increased body weight and stretching and tethering other structures. /[id number] DYANA/ANAIL
== END 2016-09-19 18:14 | disposition home or self-care (01) ==
LOC: FB.ED 16:25
DX: R10.32 Left lower quadrant pain (principal); Z98.890 Other specified postprocedural states; Z88.1 Allergy status to other antibiotic agents; Z88.0 Allergy status to penicillin; Z88.8 Allergy status to other drugs, medicaments and biological substances
CPT/HCPCS: 36415; 81001; 83605; 85025; 86140; 99282; 99284

== ENCOUNTER 2016-09-22 01:19 | Emergency (ER) | payer MEDICARE, MEDICAID ==
[2016-09-22 02:08] VITALS: BP 147/89
--- NOTE | 2016-09-22 02:08 | EDM.PDOC ---
ED HPI GENERAL MEDICAL PROBLEM - General Chief Complaint: Behavioral/Psych Stated Complaint: HIGH BLOOD PRESSURE Time Seen by Provider: 09/22/16 01:30 Source of Information: Reports: Patient, Old records History Limitations: Reports: No limitations - History of Present Illness INITIAL COMMENTS - FREE TEXT/NARRATIVE: Hubert comes in with sxs of pounding headache, restlessness, ringing in the ears , sweats, and inability to sleep. He was seen on September 14 with similar sxs, and a diagnosis of PTSD was considered. He has psychotropic meds at home which are only partially successful in ameliorating sxs. He has applied for benefits to obtain CBT, but has no appt yet. - Related Data Allergies Allergy/AdvReac Type Severity Reaction Status Date / Time amoxicillin Allergy Rash Verified 09/22/16 01:29 Penicillins Allergy Rash Verified 09/22/16 01:29 povidone-iodine Allergy Rash Verified 09/22/16 01:29 [From Betadine] soap [From Betadine] Allergy Rash Verified 09/22/16 01:29 Home Meds: Home Meds Citalopram Hydrobromide [Celexa] 20 tab PO DAILY 03/05/16 [History] clonazePAM [Klonopin] 1 tab PO ASDIRECTED PRN 03/05/16 [History] Hydrochlorothiazide 25 mg PO DAILY 06/06/16 [History] Potassium Chloride 10 meq PO DAILY #30 capsule.er 08/29/16 [Rx] Past Medical History - Past Health History Medical/Surgical History: Denies Medical/Surgical History Cardiovascular History: Reports: Hypertension Respiratory History: Reports: Asthma Gastrointestinal History: Reports: GERD, Other (see below) Other Gastrointestinal History: Lactose Intolerance chronic left lower quad pain Psychiatric History: Reports: ADHD, Anxiety, Bipolar, PTSD, Suicide attempt - Infectious Disease History Infectious Disease History: Reports: Chicken pox, Shingles - Past Surgical History GI Surgical History: Reports: Small bowel, Other (see below) Other GI Surgeries/Procedures: Colostomy placed as an infant, has since been reversed. Musculoskeletal Surgical History: Reports: Other (see below) Other Musculoskeletal Surgeries/Procedures:: Leg surgery as a child. Social & Family History - Family History Family Medical History: Noncontributory - Tobacco Use Smoking Status *Q: Current Every Day Smoker Years of Tobacco use: 4 Packs/Tins Daily: 1 Used Tobacco, but Quit: Yes Month Tobacco Last Used: 06/2004 Second Hand Smoke Exposure: No - Caffeine Use Caffeine Use: Reports: Soda - Alcohol Use Days Per Week of Alcohol Use: 0 - Recreational Drug Use Recreational Drug Use: No Drug Use in Last 12 Months: No ED ROS GENERAL - Review of Systems Review Of Systems: See Below Constitutional: Reports: no symptoms HEENT: Reports: No symptoms Respiratory: Reports: No Symptoms Cardiovascular: Reports: Blood pressure problem, Lightheadedness Endocrine: Reports: no symptoms GI/Abdominal: Reports: No symptoms Musculoskeletal: Reports: no symptoms Skin: Reports: no symptoms Neurological: Reports: Dizziness, Headache, Tingling Psychiatric: Reports: Agitation, Anxiety, Mood lability Hematologic/Lymphatic: Reports: no symptoms Immunologic: Reports: no symptoms ED EXAM, GENERAL - Physical Exam Exam: See Below Exam Limited By: No limitations General Appearance: alert, WD/WN, no apparent distress, anxious Eye Exam: bilateral eye: normal inspection, PERRL Ears: normal external exam Nose: normal inspection Throat/Mouth: Normal inspection, Normal oropharynx Head: normocephalic Neck: normal inspection, supple, non-tender Respiratory/Chest: lungs clear Cardiovascular: regular rate, rhythm Back Exam: normal inspection Extremities: normal inspection Neurological: alert, oriented, CN II-XII intact, normal cognition, normal gait, no motor/sensory deficits Psychiatric: normal affect, anxious Skin Exam: Warm, Dry, Intact, Normal color Lymphatic: no adenopathy Course - Vital Signs Text/Narrative:: Hubert calmed down during medical interview, without need for psychotrophic medication. Last Recorded V/S: Last Vital Signs Temp 36.3 C 09/22/16 01:30 Pulse 59 L 09/22/16 01:30 Resp 20 09/22/16 01:30 BP 168/97 H 09/22/16 01:30 Pulse Ox 100 09/22/16 01:30 Departure - Departure Time of Disposition: 02:00 Disposition: Home, Self-Care 01 Condition: fair Clinical Impression: Post traumatic stress disorder (PTSD) - Discharge Information Instructions: Hypertension, [id number] Referrals: Sahil Araujo MD [Primary Care Provider] - Forms: ED Department Discharge - Problem List & Annotations (1) Post traumatic stress disorder (PTSD) SNOMED Code(s): 04373394 Code(s): F43.10 - POST-TRAUMATIC STRESS DISORDER, UNSPECIFIED Status: Acute Annotation/Comment:: Somatic sxs appear consistent with underlying anxiety disorder such as PTSD and ZEE. He is on medication, and would benefit from resumption of CBT. No new meds dispensed for current sxs. - Problem List Review Problem List Initiated/Reviewed/Updated: Yes - Assessment/Plan Plan: Follow up with PCP and seek a therapist for CBT.
== END 2016-09-22 02:05 | disposition home or self-care (01) ==
LOC: FB.ED 01:19
DX: F43.10 Post-traumatic stress disorder, unspecified (principal); I10 Essential (primary) hypertension; K21.9 Gastro-esophageal reflux disease without esophagitis; F41.9 Anxiety disorder, unspecified; F31.9 Bipolar disorder, unspecified; Z88.1 Allergy status to other antibiotic agents; Z88.0 Allergy status to penicillin; Z88.8 Allergy status to other drugs, medicaments and biological substances; Z79.899 Other long term (current) drug therapy
CPT/HCPCS: 99281; 99283

== ENCOUNTER 2016-09-30 20:07 | Emergency (ER) | payer MEDICARE, MEDICAID ==
[2016-09-30 21:04] VITALS: BP 138/85
--- NOTE | 2016-09-30 21:25 | EDM.PDOC ---
ED HPI GENERAL MEDICAL PROBLEM - General Chief Complaint: ENT Problem Stated Complaint: RINGING IN EARS Time Seen by Provider: 09/30/16 20:17 Source of Information: Reports: Patient History Limitations: Reports: No Limitations - History of Present Illness INITIAL COMMENTS - FREE TEXT/NARRATIVE: 41 years old w m with a h/o hypertension, came to the ed due to bilat tinnitus, which started after he took Lorsartan yesterday. Pt has h/o PTSD. BP was elevated initially but improved 30 min after he arrived here in the ed. No N/V/ D no any other acute medical issues. Onset: Gradual Onset Date: 09/29/16 Onset Time: 18:00 Duration: Day(s): Location: Reports: Head Quality: Reports: Other (tinitus) Severity: Mild Improves with: Reports: None Worsens with: Reports: None Associated Symptoms: Reports: No Other Symptoms - Related Data Allergies Allergy/AdvReac Type Severity Reaction Status Date / Time amoxicillin Allergy Rash Verified 09/22/16 01:29 Penicillins Allergy Rash Verified 09/22/16 01:29 povidone-iodine Allergy Rash Verified 09/22/16 01:29 [From Betadine] soap [From Betadine] Allergy Rash Verified 09/22/16 01:29 Home Meds: Home Meds Citalopram Hydrobromide [Celexa] 20 tab PO DAILY 03/05/16 [History] clonazePAM [Klonopin] 1 tab PO ASDIRECTED PRN 03/05/16 [History] Hydrochlorothiazide 25 mg PO DAILY 06/06/16 [History] Valsartan 80 mg PO DAILY 09/30/16 [History] Past Medical History - Past Health History Medical/Surgical History: Denies Medical/Surgical History Cardiovascular History: Reports: Hypertension Respiratory History: Reports: Asthma Gastrointestinal History: Reports: GERD, Other (See Below) Other Gastrointestinal History: Lactose Intolerance chronic left lower quad pain Psychiatric History: Reports: ADHD, Anxiety, Bipolar, PTSD, Suicide Attempt - Infectious Disease History Infectious Disease History: Reports: Chicken Pox, Shingles - Past Surgical History GI Surgical History: Reports: Small Bowel, Other (See Below) Musculoskeletal Surgical History: Reports: Other (See Below) Social & Family History - Family History Family Medical History: Noncontributory - Tobacco Use Smoking Status *Q: Former Smoker Years of Tobacco use: 10 Packs/Tins Daily: 2 Used Tobacco, but Quit: Yes Month Tobacco Last Used: august Second Hand Smoke Exposure: No - Caffeine Use Caffeine Use: Reports: Soda - Alcohol Use Days Per Week of Alcohol Use: 0 - Recreational Drug Use Recreational Drug Use: No Drug Use in Last 12 Months: No ED ROS GENERAL - Review of Systems Review Of Systems: See Below Constitutional: Reports: No Symptoms HEENT: Reports: No Symptoms Respiratory: Reports: No Symptoms Cardiovascular: Reports: No Symptoms Endocrine: Reports: No Symptoms GI/Abdominal: Reports: No Symptoms : Reports: No Symptoms Musculoskeletal: Reports: No Symptoms Skin: Reports: No Symptoms Neurological: Reports: No Symptoms Psychiatric: Reports: No Symptoms Hematologic/Lymphatic: Reports: No Symptoms Immunologic: Reports: No Symptoms ED EXAM, DIZZINESS - Physical Exam Exam: See Below Exam Limited By: No Limitations General Appearance: Alert, WD/WN, No Apparent Distress Eye Exam: Bilateral Eye: Normal Inspection Ears: Normal External Exam Nose: Normal Inspection Throat/Mouth: Normal Inspection, Normal Lips Head Exam: Atraumatic, Normocephalic Neck: Normal Inspection, Supple, Non-Tender Respiratory/Chest: No Respiratory Distress Cardiovascular: Normal Peripheral Pulses GI/Abdominal: Normal Bowel Sounds (Male) Exam: Deferred Rectal (Males) Exam: Deferred Neurological: Alert, Normal Mood/Affect, Normal Dorsiflexion, CN II-XII Intact, Normal Gait Back Exam: Normal Inspection, Full Range of Motion Extremities: Normal Inspection, Normal Range of Motion, Non-Tender, No Pedal Edema Psychiatric: Depressed Mood Skin Exam: Warm, Dry, Intact, Normal Color, No Rash Course - Vital Signs Text/Narrative:: 41 years old w m with a h/o hypertension, came to the ed due to bilat tinnitus, which started after he took Lorsartan yesterday. Pt has h/o PTSD. BP was elevated initially but improved 30 min after he arrived here in the ed. No N/V/ D no any other acute medical issues. PE: poor dentition BP 135/87 Impression: Tinnitus, H/O HTN Reexam; Improved Plan: D/C with instruction Last Recorded V/S: Last Vital Signs Temp 36.6 C 09/30/16 20:17 Pulse 58 L 09/30/16 21:04 Resp 16 09/30/16 21:04 BP 138/85 09/30/16 21:04 Pulse Ox 100 09/30/16 21:04 Departure - Departure Time of Disposition: 21:23 Disposition: Home, Self-Care 01 Condition: good Clinical Impression: Blood pressure check, Bilateral tinnitus - Discharge Information Instructions: Hypertension Referrals: Sahil Araujo MD [Primary Care Provider] - Forms: ED Department Discharge Additional Instructions: Please f/u with your PMD, cont your meds, come back if worse.
== END 2016-09-30 21:30 | disposition home or self-care (01) ==
LOC: FB.ED 20:07
DX: H93.13 Tinnitus, bilateral (principal); I10 Essential (primary) hypertension; K21.9 Gastro-esophageal reflux disease without esophagitis; F90.9 Attention-deficit hyperactivity disorder, unspecified type; J45.909 Unspecified asthma, uncomplicated; F43.10 Post-traumatic stress disorder, unspecified; Z01.30 Encounter for examination of blood pressure without abnormal findings; Z87.891 Personal history of nicotine dependence; Z79.899 Other long term (current) drug therapy; Z88.0 Allergy status to penicillin; Z88.1 Allergy status to other antibiotic agents; Z91.048 Other nonmedicinal substance allergy status
CPT/HCPCS: 99281; 99282

== ENCOUNTER 2016-10-08 02:22 | Emergency (ER) | payer MEDICARE, MEDICAID ==
--- NOTE | 2016-10-08 02:39 | EDM.PDOC ---
ED HPI GENERAL MEDICAL PROBLEM - General Stated Complaint: LF EAR PAIN Time Seen by Provider: 10/08/16 02:22 Source of Information: Reports: Patient History Limitations: Reports: No Limitations - History of Present Illness INITIAL COMMENTS - FREE TEXT/NARRATIVE: 41 years old w m came to the ed due to ringing in his left ear. BP was 155/76. No other acute medical issues. Onset: Gradual Onset Date: 10/06/16 Onset Time: 07:00 Duration: Day(s): Location: Reports: Face Quality: Reports: Burning, Throbbing Severity: Mild Improves with: Reports: None Worsens with: Reports: None Associated Symptoms: Reports: No Other Symptoms left ear/head Pain Score (Numeric/FACES): 7 - Related Data Allergies Allergy/AdvReac Type Severity Reaction Status Date / Time amoxicillin Allergy Rash Verified 10/08/16 02:35 Penicillins Allergy Rash Verified 10/08/16 02:35 povidone-iodine Allergy Rash Verified 10/08/16 02:35 [From Betadine] soap [From Betadine] Allergy Rash Verified 10/08/16 02:35 Home Meds: Home Meds Citalopram Hydrobromide [Celexa] 20 tab PO DAILY 03/05/16 [History] clonazePAM [Klonopin] 1 tab PO ASDIRECTED PRN 03/05/16 [History] Hydrochlorothiazide 25 mg PO DAILY 06/06/16 [History] Ofloxacin 10 drop EARLF DAILY 7 Days 10/08/16 [Rx] Past Medical History - Past Health History Medical/Surgical History: Denies Medical/Surgical History Cardiovascular History: Reports: Hypertension Respiratory History: Reports: Asthma Gastrointestinal History: Reports: GERD, Other (See Below) Other Gastrointestinal History: Lactose Intolerance chronic left lower quad pain Psychiatric History: Reports: ADHD, Anxiety, Bipolar, PTSD, Suicide Attempt - Infectious Disease History Infectious Disease History: Reports: Chicken Pox, Shingles - Past Surgical History GI Surgical History: Reports: Small Bowel, Other (See Below) Musculoskeletal Surgical History: Reports: Other (See Below) Social & Family History - Family History Family Medical History: Noncontributory - Tobacco Use Smoking Status *Q: Former Smoker Years of Tobacco use: 10 Packs/Tins Daily: 2 Used Tobacco, but Quit: Yes Month Tobacco Last Used: august Second Hand Smoke Exposure: No - Caffeine Use Caffeine Use: Reports: Soda - Alcohol Use Days Per Week of Alcohol Use: 0 - Recreational Drug Use Recreational Drug Use: No Drug Use in Last 12 Months: No ED ROS ENT - Review of Systems Review Of Systems: See Below Constitutional: Reports: No Symptoms HEENT: Reports: Other (ringing left ear) Respiratory: Reports: No Symptoms Cardiovascular: Reports: No Symptoms Endocrine: Reports: No Symptoms GI/Abdominal: Reports: No Symptoms : Reports: No Symptoms Musculoskeletal: Reports: No Symptoms Skin: Reports: No Symptoms Neurological: Reports: No Symptoms Psychiatric: Reports: No Symptoms Hematologic/Lymphatic: Reports: No Symptoms Immunologic: Reports: No Symptoms ED EXAM, ENT - Physical Exam Exam: See Below Exam Limited By: No Limitations General Appearance: Alert, WD/WN, No Apparent Distress Eye Exam: Bilateral Eye: Normal Inspection Ears: Other (ear canal redness) Nose: Normal Inspection, Normal Mucousa Mouth/Throat: Normal Inspection, Normal Gums, Normal Lips, Normal Oropharynx Head: Atraumatic, Normocephalic Neck: Normal Inspection, Supple, Non-Tender, Full Range of Motion Respiratory/Chest: No Respiratory Distress, Lungs Clear, Normal Breath Sounds Cardiovascular: Normal Peripheral Pulses, Regular Rate, Rhythm, No Edema, No Gallop GI/Abdominal: Normal Bowel Sounds, Soft, Non-Tender, No Organomegaly (Male) Exam: Deferred Rectal (Males) Exam: Deferred Back: Normal Inspection, Full Range of Motion Extremities: Normal Inspection, Normal Range of Motion Neurological: Alert, Oriented, CN II-XII Intact, Normal Cognition Psychiatric: Normal Affect, Normal Mood Skin: Warm, Dry, Intact Lymphatic: No Adenopathy Course - Vital Signs Text/Narrative:: 41 years old w m came to the ed due to ringing in his left ear. BP was 155/76. No other acute medical issues. PE: Otitis externa Tx: Prescription for oflaxacine Plan: D/C with instructions Last Recorded V/S: Last Vital Signs Temp 36.4 C 10/08/16 02:25 Pulse 53 L 10/08/16 02:25 Resp 18 10/08/16 02:25 BP 150/95 H 10/08/16 02:25 Pulse Ox 100 10/08/16 02:25 Departure - Departure Time of Disposition: 02:39 Disposition: Home, Self-Care 01 Condition: good Clinical Impression: Otitis externa Qualifiers: Otitis externa type: unspecified type Laterality: left Chronicity: acute Qualified Code(s): H60.502 - Unspecified acute noninfective otitis externa, left ear - Discharge Information Prescriptions: Ofloxacin 10 drop EARLF DAILY 7 Days Referrals: Sahil Araujo MD [Primary Care Provider] - Additional Instructions: Please apply ofloxacin into your left ear as instructed. Please f/u come back if the symptoms get worse acutely.
[2016-10-08 02:45] VITALS: BP 150/95
== END 2016-10-08 03:00 | disposition home or self-care (01) ==
LOC: FB.ED 02:22
DX: H60.502 Unspecified acute noninfective otitis externa, left ear (principal); I10 Essential (primary) hypertension; J45.909 Unspecified asthma, uncomplicated; K21.9 Gastro-esophageal reflux disease without esophagitis; F41.9 Anxiety disorder, unspecified; F31.9 Bipolar disorder, unspecified; Z87.891 Personal history of nicotine dependence; Z88.1 Allergy status to other antibiotic agents; Z88.0 Allergy status to penicillin; Z91.09 Other allergy status, other than to drugs and biological substances; Z79.899 Other long term (current) drug therapy
CPT/HCPCS: 99282; 99283

== ENCOUNTER 2016-10-16 04:38 | Emergency (ER) | payer MEDICARE, MEDICAID ==
--- NOTE | 2016-10-16 05:07 | EDM.PDOC ---
ED HPI GENERAL MEDICAL PROBLEM - General Chief Complaint: General Stated Complaint: LT EAR PAIN Time Seen by Provider: 10/16/16 04:48 Source of Information: Reports: Patient History Limitations: Reports: No Limitations - History of Present Illness INITIAL COMMENTS - FREE TEXT/NARRATIVE: 41 y.o.w.m. came to the ed with left ear pain, no other acute medical issues Onset: Today Onset Date: 10/16/16 Onset Time: 02:00 Duration: Hour(s): Location: Reports: Face Quality: Reports: Burning, Dull Severity: Mild Improves with: Reports: None Worsens with: Reports: None Associated Symptoms: Reports: No Other Symptoms Left Ear Pain Score (Numeric/FACES): 2 - Related Data Allergies Allergy/AdvReac Type Severity Reaction Status Date / Time amoxicillin Allergy Rash Verified 10/08/16 02:35 Penicillins Allergy Rash Verified 10/08/16 02:35 povidone-iodine Allergy Rash Verified 10/08/16 02:35 [From Betadine] soap [From Betadine] Allergy Rash Verified 10/08/16 02:35 Home Meds: Home Meds Citalopram Hydrobromide [Celexa] 20 tab PO DAILY 03/05/16 [History] clonazePAM [Klonopin] 1 tab PO ASDIRECTED PRN 03/05/16 [History] Hydrochlorothiazide 25 mg PO DAILY 06/06/16 [History] Ofloxacin 10 drop EARLF DAILY 7 Days 10/08/16 [Rx] Hydrocort/Neomycin/Polymyxin B [Qaxporbn-Lxyjxocji-YS Otic Susp] 3 drop EARLF Q8HR 8 Days 10/16/16 [Rx] Past Medical History - Past Health History Medical/Surgical History: Denies Medical/Surgical History HEENT History: Reports: Otitis Media Cardiovascular History: Reports: Hypertension Respiratory History: Reports: Asthma Gastrointestinal History: Reports: GERD, Other (See Below) Other Gastrointestinal History: Lactose Intolerance chronic left lower quad pain Psychiatric History: Reports: ADHD, Anxiety, Bipolar, PTSD, Suicide Attempt Dermatologic History: Reports: None - Infectious Disease History Infectious Disease History: Reports: Chicken Pox, Shingles - Past Surgical History GI Surgical History: Reports: Small Bowel, Other (See Below) Musculoskeletal Surgical History: Reports: Other (See Below) Oncologic Surgical History: Reports: None Social & Family History - Family History Family Medical History: Noncontributory - Tobacco Use Smoking Status *Q: Current Every Day Smoker Years of Tobacco use: 3 Packs/Tins Daily: 1 Used Tobacco, but Quit: No Month Tobacco Last Used: august Second Hand Smoke Exposure: No - Caffeine Use Caffeine Use: Reports: None - Alcohol Use Days Per Week of Alcohol Use: 0 - Recreational Drug Use Recreational Drug Use: No Drug Use in Last 12 Months: No ED ROS GENERAL - Review of Systems Review Of Systems: See Below Constitutional: Reports: No Symptoms HEENT: Reports: Ear Pain Respiratory: Reports: No Symptoms Cardiovascular: Reports: No Symptoms Endocrine: Reports: No Symptoms GI/Abdominal: Reports: No Symptoms : Reports: No Symptoms Musculoskeletal: Reports: No Symptoms Skin: Reports: No Symptoms Neurological: Reports: No Symptoms Psychiatric: Reports: No Symptoms Hematologic/Lymphatic: Reports: No Symptoms Immunologic: Reports: No Symptoms ED EXAM, GENERAL - Physical Exam Exam: See Below Exam Limited By: No Limitations General Appearance: Alert, WD/WN, No Apparent Distress Eye Exam: Bilateral Eye: Normal Inspection Ears: Other (Otitis externa left ear) Ear Exam: Left Ear: Swelling, Tenderness Nose: Normal Inspection, Normal Mucosa Throat/Mouth: Normal Inspection, Normal Lips, Normal Teeth Head: Atraumatic, Normocephalic Neck: Normal Inspection, Supple, Non-Tender, Full Range of Motion Respiratory/Chest: No Respiratory Distress, Lungs Clear, Normal Breath Sounds Cardiovascular: Normal Peripheral Pulses, Regular Rate, Rhythm, No Edema, No Gallop Peripheral Pulses: 1+: Femoral (L), Femoral (R) GI/Abdominal: Normal Bowel Sounds, Soft, Non-Tender (Male) Exam: Deferred Rectal (Males) Exam: Deferred Back Exam: Normal Inspection, Full Range of Motion Extremities: Normal Inspection, Normal Range of Motion, Non-Tender Neurological: Alert, Oriented, CN II-XII Intact Psychiatric: Normal Affect, Normal Mood Skin Exam: Warm, Dry Lymphatic: No Adenopathy Course - Vital Signs Text/Narrative:: 41 y.o.w.m. came to the ed with left ear pain, no other acute medical issues PE: OE left ear. Impression: Otitis externa left ear Tx: Cortisporine prescription Plan: D/C with instructions Last Recorded V/S: Last Vital Signs Temp 36.8 C 10/16/16 05:00 Pulse 66 10/16/16 05:00 Resp 20 10/16/16 05:00 BP 142/72 H 10/16/16 05:00 Pulse Ox 98 10/16/16 05:00 Departure - Departure Time of Disposition: 05:00 Disposition: Home, Self-Care 01 Condition: good Clinical Impression: Otitis externa Qualifiers: Otitis externa type: unspecified type Chronicity: unspecified Laterality: left Qualified Code(s): H60.92 - Unspecified otitis externa, left ear - Discharge Information Prescriptions: Hydrocort/Neomycin/Polymyxin B [Kjlfenif-Sibuqormr-FS Otic Susp] 3 drop EARLF Q8HR 8 Days Referrals: Sahil Araujo MD [Primary Care Provider] - Forms: ED Department Discharge Additional Instructions: please apply the eardrops as recommended, please f/u, come back if worse.
[2016-10-16 05:42] VITALS: BP 142/72
== END 2016-10-16 05:39 | disposition home or self-care (01) ==
LOC: FB.ED 04:38
DX: H60.92 Unspecified otitis externa, left ear (principal); I10 Essential (primary) hypertension; J45.909 Unspecified asthma, uncomplicated; K21.9 Gastro-esophageal reflux disease without esophagitis; F17.210 Nicotine dependence, cigarettes, uncomplicated; Z88.1 Allergy status to other antibiotic agents; Z79.899 Other long term (current) drug therapy; Z88.0 Allergy status to penicillin; Z88.8 Allergy status to other drugs, medicaments and biological substances
CPT/HCPCS: 99282; 99283

== ENCOUNTER 2016-11-13 14:57 | Emergency (ER) | payer MEDICARE, MEDICAID ==
[2016-11-13 15:13] VITALS: BP 140/95
--- NOTE | 2016-11-13 15:17 | EDM.PDOC ---
ED HPI GENERAL MEDICAL PROBLEM - General Chief Complaint: ENT Problem Stated Complaint: LEFT EAR PAIN Time Seen by Provider: 11/13/16 15:08 Source of Information: Reports: Patient History Limitations: Reports: No Limitations - History of Present Illness INITIAL COMMENTS - FREE TEXT/NARRATIVE: 41 y.o.w.m. came to the ed due to left ear pain. Pt was seen by me a few day ago for same. He was given cortisporine ear drops, which helped his symptoms. Now, the ear pain came back. Pt denies any other acute medical issues at this time. Onset: Gradual Onset Date: 11/04/16 Onset Time: 18:00 Duration: Week(s):, Intermittent Location: Reports: Other (left ear) Quality: Reports: Ache, Burning, Dull Severity: Mild Improves with: Reports: None Worsens with: Reports: None Associated Symptoms: Reports: No Other Symptoms Left Ear Pain Score (Numeric/FACES): 4 - Related Data Allergies Allergy/AdvReac Type Severity Reaction Status Date / Time amoxicillin Allergy Rash Verified 11/13/16 15:06 Penicillins Allergy Rash Verified 11/13/16 15:06 povidone-iodine Allergy Rash Verified 11/13/16 15:06 [From Betadine] soap [From Betadine] Allergy Rash Verified 11/13/16 15:06 Home Meds: Home Meds Citalopram Hydrobromide [Celexa] 20 tab PO DAILY 03/05/16 [History] clonazePAM [Klonopin] 1 tab PO ASDIRECTED PRN 03/05/16 [History] Hydrochlorothiazide 25 mg PO DAILY 06/06/16 [History] Ciprofloxacin HCl [Cipro] 500 mg PO BID #20 tablet 11/13/16 [Rx] Past Medical History - Past Health History Medical/Surgical History: Denies Medical/Surgical History HEENT History: Reports: Otitis Media Cardiovascular History: Reports: Hypertension Respiratory History: Reports: Asthma Gastrointestinal History: Reports: GERD, Other (See Below) Other Gastrointestinal History: Lactose Intolerance chronic left lower quad pain Psychiatric History: Reports: ADHD, Anxiety, Bipolar, PTSD, Suicide Attempt Dermatologic History: Reports: None - Infectious Disease History Infectious Disease History: Reports: Chicken Pox, Shingles - Past Surgical History GI Surgical History: Reports: Small Bowel, Other (See Below) Musculoskeletal Surgical History: Reports: Other (See Below) Oncologic Surgical History: Reports: None Social & Family History - Family History Family Medical History: Noncontributory - Tobacco Use Smoking Status *Q: Current Every Day Smoker Years of Tobacco use: 3 Packs/Tins Daily: 1 Used Tobacco, but Quit: No Month Tobacco Last Used: august Second Hand Smoke Exposure: No - Caffeine Use Caffeine Use: Reports: None - Alcohol Use Days Per Week of Alcohol Use: 0 - Recreational Drug Use Recreational Drug Use: No Drug Use in Last 12 Months: No ED ROS ENT - Review of Systems Review Of Systems: See Below Constitutional: Reports: No Symptoms HEENT: Reports: Ear Pain Respiratory: Reports: No Symptoms Cardiovascular: Reports: No Symptoms Endocrine: Reports: No Symptoms GI/Abdominal: Reports: No Symptoms : Reports: No Symptoms Musculoskeletal: Reports: No Symptoms Skin: Reports: No Symptoms Neurological: Reports: No Symptoms Psychiatric: Reports: No Symptoms Hematologic/Lymphatic: Reports: No Symptoms Immunologic: Reports: No Symptoms ED EXAM, ENT - Physical Exam Exam: See Below Exam Limited By: No Limitations General Appearance: Alert, WD/WN, No Apparent Distress Eye Exam: Bilateral Eye: Normal Inspection Ears: Canal Swelling, TM Bulging Nose: Normal Inspection, Normal Mucousa Mouth/Throat: Normal Inspection, Normal Gums, Normal Lips, Normal Oropharynx Head: Atraumatic, Normocephalic Neck: Normal Inspection, Supple, Non-Tender, Full Range of Motion Respiratory/Chest: No Respiratory Distress, Lungs Clear, Normal Breath Sounds Cardiovascular: Normal Peripheral Pulses, Regular Rate, Rhythm, No Edema GI/Abdominal: Normal Bowel Sounds (Male) Exam: No Hernia, Normal Inspection Rectal (Males) Exam: Deferred Back: Normal Inspection, Full Range of Motion Extremities: Normal Inspection, Normal Range of Motion, Non-Tender Neurological: Alert, Oriented, CN II-XII Intact, Normal Cognition, Normal Gait Psychiatric: Normal Affect, Normal Mood Skin: Warm, Dry, Intact, Normal Color, No Rash Lymphatic: No Adenopathy Course - Vital Signs Text/Narrative:: 41 y.o.w.m. came to the ed due to left ear pain. Pt was seen by me a few day ago for same. He was given cortisporine ear drops, which helped his symptoms. Now, the ear pain came back. Pt denies any other acute medical issues at this time. PE: Left sided OT/OM Impression: Left sided OT/OM Plan: D/C with instructions Last Recorded V/S: Last Vital Signs Temp 36.2 C 11/13/16 15:08 Pulse 72 11/13/16 15:08 Resp 16 11/13/16 15:08 BP 140/95 H 11/13/16 15:08 Pulse Ox 100 11/13/16 15:08 Departure - Departure Time of Disposition: 15:17 Disposition: Home, Self-Care 01 Condition: Good Clinical Impression: Otitis Qualifiers: Laterality: left Qualified Code(s): H66.92 - Otitis media, unspecified, left ear - Discharge Information Prescriptions: Ciprofloxacin HCl [Cipro] 500 mg PO BID #20 tablet Referrals: Alycia Gayle PA [Primary Care Provider] - Forms: ED Department Discharge Additional Instructions: Please continue cortisporine eardrops, please take Cipro Abx as recommended, please f/u with ENT, please come back if your symptoms get worse acutely.
== END 2016-11-13 15:24 | disposition home or self-care (01) ==
LOC: FB.ED 14:57
DX: H66.92 Otitis media, unspecified, left ear (principal); I10 Essential (primary) hypertension; J45.909 Unspecified asthma, uncomplicated; K21.9 Gastro-esophageal reflux disease without esophagitis; F31.9 Bipolar disorder, unspecified; F17.210 Nicotine dependence, cigarettes, uncomplicated; Z88.1 Allergy status to other antibiotic agents; Z88.0 Allergy status to penicillin; Z88.8 Allergy status to other drugs, medicaments and biological substances; Z79.899 Other long term (current) drug therapy
CPT/HCPCS: 99282

== ENCOUNTER 2017-01-26 20:23 | Emergency (ER) | payer MEDICARE, MEDICAID ==
--- NOTE | 2017-01-26 21:20 | EDM.PDOC ---
ED HPI GENERAL MEDICAL PROBLEM - General Chief Complaint: General Stated Complaint: TROUBLE BREATHING Time Seen by Provider: 01/26/17 20:55 Source of Information: Reports: Patient, Old Records, RN History Limitations: Reports: No Limitations - History of Present Illness INITIAL COMMENTS - FREE TEXT/NARRATIVE: 41 yo male with chronic anxiety presents with SOB not able to tell if he is having an asthma attack or not. Has an appt to see psych on Tuesday. Has sufficient clonazepam to last until seen. Was also on citalopram 40 mg qd, but decreased this on his own due to the sexual side effects. Used to have a peak flow meter, but threw it away when his asthma improved. Onset: Unknown/Unsure Duration: Chronic, Waxing/Waning Location: Reports: Generalized Quality: Reports: Other (Some mild chest tightness with full inspiration. ) Severity: Mild Improves with: Reports: Medication (clonazepam or sleep) Worsens with: Reports: Other (thinking "about things") Context: Reports: Other (Hx of chronic anxiety) Associated Symptoms: Reports: Shortness of Breath, Other (light-headedness.). Denies: Fever/Chills, Headaches Treatments FLAT CLOTHIER: Reports: Other (see below) (none) - Related Data Allergies Allergy/AdvReac Type Severity Reaction Status Date / Time amoxicillin Allergy Rash Verified 01/26/17 20:55 Penicillins Allergy Rash Verified 01/26/17 20:55 povidone-iodine Allergy Rash Verified 01/26/17 20:55 [From Betadine] soap [From Betadine] Allergy Rash Verified 01/26/17 20:55 Home Meds: Home Meds Citalopram Hydrobromide [Celexa] 20 tab PO DAILY 03/05/16 [History] clonazePAM [Klonopin] 1 tab PO ASDIRECTED PRN 03/05/16 [History] Hydrochlorothiazide 25 mg PO DAILY 06/06/16 [History] Albuterol [Proventil HFA] 1 - 2 puff .XX DAILY PRN 01/26/17 [History] Past Medical History - Past Health History Medical/Surgical History: Denies Medical/Surgical History HEENT History: Reports: Otitis Media Cardiovascular History: Reports: Hypertension Respiratory History: Reports: Asthma Gastrointestinal History: Reports: GERD, Other (See Below) Other Gastrointestinal History: Lactose Intolerance chronic left lower quad pain Psychiatric History: Reports: ADHD, Anxiety, Bipolar, PTSD, Suicide Attempt Dermatologic History: Reports: None - Infectious Disease History Infectious Disease History: Reports: Chicken Pox, Shingles - Past Surgical History GI Surgical History: Reports: Small Bowel, Other (See Below) Other GI Surgeries/Procedures: NEC Musculoskeletal Surgical History: Reports: Other (See Below) Oncologic Surgical History: Reports: None Social & Family History - Family History Family Medical History: Noncontributory - Tobacco Use Smoking Status *Q: Never Smoker Years of Tobacco use: 3 Packs/Tins Daily: 1 Used Tobacco, but Quit: No Month Tobacco Last Used: august Second Hand Smoke Exposure: No - Caffeine Use Caffeine Use: Reports: Coffee, Soda - Alcohol Use Days Per Week of Alcohol Use: 0 - Recreational Drug Use Recreational Drug Use: No Drug Use in Last 12 Months: No ED ROS GENERAL - Review of Systems Review Of Systems: See Below Constitutional: Reports: No Symptoms HEENT: Reports: No Symptoms Respiratory: Reports: Shortness of Breath. Denies: Wheezing, Cough Cardiovascular: Reports: Lightheadedness GI/Abdominal: Reports: No Symptoms : Reports: No Symptoms Musculoskeletal: Reports: No Symptoms Skin: Reports: No Symptoms Neurological: Reports: No Symptoms Psychiatric: Reports: Anxiety ED EXAM, GENERAL - Physical Exam Exam: See Below Exam Limited By: No Limitations General Appearance: Alert, WD/WN, No Apparent Distress, Anxious Eye Exam: Bilateral Eye: Normal Inspection Ears: Normal External Exam, Normal Canal, Hearing Grossly Normal Ear Exam: Bilateral Ear: Auricle Normal, Canal Normal Nose: Normal Inspection, Normal Mucosa Throat/Mouth: Normal Inspection, Normal Lips, Normal Gums, Normal Oropharynx, Normal Voice, No Airway Compromise Head: Atraumatic, Normocephalic Neck: Normal Inspection, Supple Respiratory/Chest: No Respiratory Distress, Lungs Clear, Normal Breath Sounds, No Accessory Muscle Use, Other (breathing excessively deep and fast at rest due to anxiety. ) Cardiovascular: Regular Rate, Rhythm, No Edema Back Exam: Normal Inspection, Full Range of Motion. No: CVA Tenderness (R), CVA Tenderness (L) Extremities: Normal Inspection, Normal Range of Motion, Non-Tender, No Pedal Edema Neurological: Alert, Oriented, CN II-XII Intact, Normal Cognition, No Motor/ Sensory Deficits Psychiatric: Normal Affect, Normal Mood Skin Exam: Warm, Dry, Normal Color, No Rash, Other (benign nevis to L temporal area of scalp) Lymphatic: No Adenopathy Course - Vital Signs Last Recorded V/S: Last Vital Signs Temp 36.8 C 01/26/17 20:25 Pulse 78 01/26/17 20:25 Resp 20 01/26/17 20:25 BP 152/100 H 01/26/17 20:25 Pulse Ox 100 01/26/17 20:25 Departure - Departure Time of Disposition: 21:25 Disposition: Home, Self-Care 01 Condition: Good Clinical Impression: Chronic anxiety - Discharge Information Referrals: Alycia Gayle PA [Primary Care Provider] - Forms: ED Department Discharge Additional Instructions: Consider increasing your citalopram to 40 mg daily. Take enough clonazepam to control your anxiety until you are seen on Tuesday. Return as needed.
[2017-01-26 21:26] VITALS: BP 138/87
== END 2017-01-26 21:20 | disposition home or self-care (01) ==
LOC: FB.ED 20:23
DX: F41.9 Anxiety disorder, unspecified (principal); I10 Essential (primary) hypertension; J45.909 Unspecified asthma, uncomplicated; K21.9 Gastro-esophageal reflux disease without esophagitis; F31.9 Bipolar disorder, unspecified; Z88.1 Allergy status to other antibiotic agents; Z88.0 Allergy status to penicillin; Z88.8 Allergy status to other drugs, medicaments and biological substances; Z91.048 Other nonmedicinal substance allergy status; Z79.899 Other long term (current) drug therapy
CPT/HCPCS: 99283

== ENCOUNTER 2017-02-10 18:59 | Emergency (ER) | payer MEDICARE, MEDICAID ==
[2017-02-10 19:43] VITALS: BP 126/73
== END 2017-02-10 19:25 | disposition left against medical advice (07) ==
LOC: FB.ED 18:59
DX: Z53.21 Procedure and treatment not carried out due to patient leaving prior to being seen by health care provider (principal)
CPT/HCPCS: 99283

== ENCOUNTER 2017-02-19 10:48 | Emergency (ER) | payer MEDICARE, MEDICAID ==
[2017-02-19 12:55] VITALS: BP 135/78
--- NOTE | 2017-02-22 11:19 | ER ---
DATE SEEN: 02/19/2017 TIME SEEN: The patient was seen at 1040 hours. HISTORY OF PRESENT ILLNESS: Hubert is known to me. Previously, he was seen for significant abdominal discomfort and abnormality, thought to have ulcerative colitis, and partially obstructive bowel, who went to [facility] at that time. He was after so many different treatments, either surgery or conservative intervention that he "threw up his hands" and left. He then went back, saw Dr. Tierney. Dr. Tierney did colonoscopy and found the colon was normal and it was thought that perhaps he had experienced a microperforation causing abnormalities and that had resolved. Since then, he has gained weight. CHIEF COMPLAINT: Rumbling in his ears, left greater than right. No dizziness or lightheadedness. He has tinnitus. He has not been tugging his ears. His hearing is slightly decreased. He denies ear pain. Denies recent fever, sore throat, mastoiditis, or sinusitis treatment. He has chronic nasal congestion and postnasal drip, coughing intermittently, has never had allergy evaluation and/or treatment nor he has had nasal spray issues. He denies dental pain. Sore throat, neck stiffness, shortness of breath, cough, chest pain, irregular heartbeat, syncope, abdominal discomfort, nausea, vomiting, diarrhea, constipation, blood in his stool. (He had some of these symptoms earlier before he had his consultation at [facility] with abdominal pain approximately a year plus ago.) FAMILY HISTORY: Negative. SOCIAL HISTORY: The patient smokes occasionally. CURRENT MEDICATIONS: 1. Clonazepam b.i.d. 2. Hydrochlorothiazide. 3. Citalopram. 4. Albuterol. ALLERGIES: Amoxil, penicillin, iodine, and soap from betadine. OTHER PAST MEDICAL HISTORY: Bilateral otitis, otitis externa. As he has used ear drops in the past, Otic drops not used recently. He has poor dentition, and hypokalemia. PHYSICAL EXAMINATION: VITAL SIGNS: Blood pressure 152/88, heart rate 63 and regular, respirations 18, oxygen saturation 99%. GENERAL: Hubert has gained weight since I have seen him. HEENT: PERRLA intact. Pharynx without abnormality. No nasal drip, but he has marked enlargement of the turbinates, almost occluded 80% of nares passage. TMs, left is more dull than right. Hearing is intact. No pain in the ears. External canal is clean. Trace of cerumen. NECK: Supple. No cervical adenopathy, thyromegaly, or masses in neck. LUNGS: Clear to auscultation without rales, rhonchi, or wheezes. HEART: S1, S2. No irregularity of rhythm. No abnormality. ABDOMEN: Soft. No guarding. No abdominal discomfort. Bowel sounds are normal. EXTREMITIES: Without edema. ASSESSMENT: 1. The patient has allergic rhinitis and turbinate swelling and postnasal drip plus cough, chronic intermittent allergic mediated eustachian tube dysfunction and otitis which is associated with tinnitus and intermittent ear discomfort. 2. Eustachian tube dysfunction. 3. Chronic scarring in his ears, probably secondary to chronic allergies and serous otitis media. 4. No clear evidence for serous otitis media or otitis media today. 5. Previous history of abdominal pain. No evidence for Crohn's or ulcerative colitis. He has done well with gastrointestinal symptoms since he last went to [facility] approximately a year ago. PLAN: Flonase 1 puff each nostril daily. Prednisone 40 mg daily for 10 days-he should feel dramatic relief in his symptoms, this will be therapeutic reflection of the etiology, and probably this trial will reflect his significant allergy mediated process. If necessary, should have allergy testing if he chooses to do that, otherwise use chronic allergy medicine. Use Claritin, Zyrtec, or Marielos over the counter. Follow up with his doctor in a week to 2 weeks or as needed. Avoid smoking. Approximately 30 minutes spent with the patient. Also, I had discussed [place] maneuver. /[id number] DYANA/COLTON
== END 2017-02-19 12:50 | disposition home or self-care (01) ==
LOC: FB.ED 10:48
DX: J30.9 Allergic rhinitis, unspecified (principal); H69.80 Other specified disorders of Eustachian tube, unspecified ear; F17.200 Nicotine dependence, unspecified, uncomplicated; Z88.0 Allergy status to penicillin; Z88.1 Allergy status to other antibiotic agents; Z88.8 Allergy status to other drugs, medicaments and biological substances
CPT/HCPCS: 99283

== ENCOUNTER 2017-02-27 17:14 | Emergency (ER) | payer MEDICARE, MEDICAID ==
[2017-02-27 18:13] VITALS: BP 152/95
== END 2017-02-27 17:40 | disposition left against medical advice (07) ==
LOC: FB.ED 17:14
DX: Z53.21 Procedure and treatment not carried out due to patient leaving prior to being seen by health care provider (principal)
CPT/HCPCS: 99282

== ENCOUNTER 2017-03-05 15:53 | Emergency (ER) | payer MEDICARE, MEDICAID ==
[2017-03-05] MEDS ORDERED: predniSONE 20 MG Tab PO ONE ×2 (16:14→17:51)
--- NOTE | 2017-03-05 17:46 | EDM.PDOC ---
ED HPI GENERAL MEDICAL PROBLEM - General Chief Complaint: Back Pain or Injury Stated Complaint: LOWER RIGHT BACK PAIN Time Seen by Provider: 03/05/17 16:15 Source of Information: Reports: Patient History Limitations: Reports: No Limitations - History of Present Illness INITIAL COMMENTS - FREE TEXT/NARRATIVE: Patient is a 41 year old patient of Dr. Shah who has had a 2 day history of lower back pain and spasm caused from lifting 10 bags at once while getting into his apartment. The pain is radiating down right leg but no fever or chills and no loss of bowel or bladder control. 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 - Related Data Allergies Allergy/AdvReac Type Severity Reaction Status Date / Time amoxicillin Allergy Rash Verified 03/05/17 16:06 Penicillins Allergy Rash Verified 03/05/17 16:06 povidone-iodine Allergy Rash Verified 03/05/17 16:06 [From Betadine] soap [From Betadine] Allergy Rash Verified 03/05/17 16:06 Home Meds: Home Meds Citalopram Hydrobromide [Celexa] 30 mg PO DAILY 03/05/16 [History] clonazePAM [Klonopin] 1 tab PO BID 03/05/16 [History] Hydrochlorothiazide 25 mg PO DAILY 06/06/16 [History] Albuterol [Proventil HFA] 1 - 2 puff INH DAILY PRN 01/26/17 [History] Past Medical History - Past Health History Medical/Surgical History: Denies Medical/Surgical History HEENT History: Reports: Otitis Media Cardiovascular History: Reports: Hypertension Respiratory History: Reports: Asthma Gastrointestinal History: Reports: GERD, Other (See Below) Other Gastrointestinal History: Lactose Intolerance chronic left lower quad pain Musculoskeletal History: Reports: None Psychiatric History: Reports: ADHD, Anxiety, Bipolar, PTSD, Suicide Attempt Dermatologic History: Reports: None - Infectious Disease History Infectious Disease History: Reports: Chicken Pox, Shingles - Past Surgical History GI Surgical History: Reports: Small Bowel, Other (See Below) Other GI Surgeries/Procedures: NEC Musculoskeletal Surgical History: Reports: Other (See Below) Other Musculoskeletal Surgeries/Procedures:: left rotator cuff injury Oncologic Surgical History: Reports: None Social & Family History - Family History Family Medical History: Noncontributory - Tobacco Use Smoking Status *Q: Former Smoker Years of Tobacco use: 5 Packs/Tins Daily: 1 Used Tobacco, but Quit: Yes Month Tobacco Last Used: 02/2017 Second Hand Smoke Exposure: No - Caffeine Use Caffeine Use: Reports: None - Alcohol Use Days Per Week of Alcohol Use: 0 - Recreational Drug Use Recreational Drug Use: No Drug Use in Last 12 Months: No ED ROS GENERAL - Review of Systems Review Of Systems: See Below Constitutional: Reports: Weakness HEENT: Reports: No Symptoms Respiratory: Reports: No Symptoms Cardiovascular: Reports: No Symptoms Endocrine: Reports: No Symptoms GI/Abdominal: Reports: No Symptoms : Reports: No Symptoms Musculoskeletal: Reports: Back Pain Skin: Reports: No Symptoms Neurological: Reports: Numbness, Tingling, Weakness Psychiatric: Reports: No Symptoms Hematologic/Lymphatic: Reports: No Symptoms Immunologic: Reports: No Symptoms ED EXAM,LOWER BACK PAIN/INJURY - Physical Exam Exam: See Below Exam Limited By: No Limitations General Appearance: Alert, WD/WN, No Apparent Distress Eye Exam: Bilateral Eye: EOMI, Normal Fundi, Normal Inspection, PERRL Ears: Normal External Exam, Normal Canal, Hearing Grossly Normal, Normal TMs Nose: Normal Inspection, Normal Mucosa, No Blood Throat/Mouth: Normal Inspection, Normal Lips, Normal Teeth, Normal Gums, Normal Oropharynx, Normal Voice, No Airway Compromise Head: Atraumatic, Normocephalic Neck: Normal Inspection Respiratory/Chest: No Respiratory Distress, Lungs Clear, Normal Breath Sounds, No Accessory Muscle Use, Chest Non-Tender Cardiovascular: Normal Peripheral Pulses, Regular Rate, Rhythm, No Edema, No Gallop, No JVD, No Murmur, No Rub GI/Abdominal: Normal Bowel Sounds, Soft, Non-Tender, No Organomegaly, No Distention, No Abnormal Bruit, No Mass Back Exam: Decreased Range of Motion, Muscle Spasm, Paraspinal Tenderness Extremities: Normal Inspection, Normal Range of Motion, Non-Tender, No Pedal Edema, Normal Capillary Refill Neurological: Alert, Normal Mood/Affect, Normal Dorsiflexion, CN II-XII Intact, Normal Plantar Flexion, Normal Gait, Normal Reflexes, No Motor/Sensory Deficits , Oriented x 3 DTR - Lower Extremities: 3+: Knee (R), Knee (L) Psychiatric: Normal Affect, Normal Mood, Anxious Skin Exam: Warm, Dry, Intact, Normal Color, No Rash Lymphatic: No Adenopathy Course - Vital Signs Text/Narrative:: Unremarkable ED course. He did feel better after getting prednisone. He will be sent home on Prednisone 40 mg daily daily for 4 days. He will see Dr. Flores next week. - Orders/Labs/Meds Orders: Active Orders 24 hr Category Date Time Status Lumbar Spine wo Cont [CT] Stat Exams 03/05/17 16:13 Taken Labs: Laboratory Tests 03/05/17 03/05/17 03/05/17 Range/Units 16:23 16:25 16:25 WBC 4.8 (4.5-12.0) X10-3/uL RBC 5.23 (4.30-5.75) x10(6)uL Hgb 15.8 H (11.5-15.5) g/dL Hct 45.0 (30.0-51.3) % MCV 86.1 (80-96) fL MCH 30.2 (27.7-33.6) pg MCHC 35.0 (32.2-35.4) g/dL RDW 12.3 (11.5-15.5) % Plt Count 198 (125-369) X10(3)uL MPV 8.0 (7.4-10.4) fL Neutrophils % (Manual) 64 (46-82) % Lymphocytes % (Manual) 29 (13-37) % Monocytes % (Manual) 6 (4-12) % Eosinophils % (Manual) 1 (0-5) % Sodium 136 (135-145) mmol/L Potassium 3.8 (3.5-5.3) mmol/L Chloride 101 (100-110) mmol/L Carbon Dioxide 28 (23-29) mmol/L BUN 15 (5-20) mg/dL Creatinine 1.1 (0.6-1.3) mg/dL Est Cr Clr Drug Dosing 89.27 mL/min Estimated GFR (MDRD) > 60 (>60) BUN/Creatinine Ratio 13.6 (9-20) Glucose 95 (80-116) mg/dL Calcium 10.0 (8.6-10.2) mg/dL Total Bilirubin 0.8 (0.1-1.3) mg/dL AST 26 (5-27) IU/L ALT 30 H D (14-26) IU/L Alkaline Phosphatase 44 L (56-112) IU/L Total Protein 7.5 (6.0-8.0) g/dL Albumin 4.6 (3.5-5.2) g/dL Globulin 2.9 g/dL Albumin/Globulin Ratio 1.6 Urine Color Yellow (YELLOW) Urine Appearance Slightly cloudy (CLEAR) Urine pH 7.0 H (5.0-6.5) Ur Specific [place] 1.010 (1.010-1.025) Urine Protein Negative (NEGATIVE) mg/dL Urine Glucose (UA) Normal (NEGATIVE) mg/dL Urine Ketones Negative (NEGATIVE) mg/dL Urine Occult Blood Negative (NEGATIVE) Urine Nitrite Negative (NEGATIVE) Urine Bilirubin Negative (NEGATIVE) Urine Urobilinogen Normal (NEGATIVE) mg/dL Ur Leukocyte Esterase Negative (NEGATIVE) Urine WBC 0-5 (0) Ur Squamous Epith Cells Occasional (NS,R,O) Urine Bacteria Few H (NS) Meds: Medications Discontinued Medications Generic Name Dose Route Start Last Admin Trade Name Freq PRN Reason Stop Dose Admin Prednisone 60 mg 03/05/17 16:14 03/05/17 16:24 Prednisone PO 03/05/17 16:15 60 mg ONETIME ONE Administration Departure - Departure Time of Disposition: 17:52 Disposition: Home, Self-Care 01 Condition: Good Clinical Impression: Lumbago with sciatica - Discharge Information Referrals: Eliel Flores MD [Primary Care Provider] - - My Orders Last 24 Hours: My Active Orders 03/05/17 16:13 Lumbar Spine wo Cont [CT] Stat - Assessment/Plan Last 24 Hours: My Active Orders 03/05/17 16:13 Lumbar Spine wo Cont [CT] Stat
== END 2017-03-05 18:28 | disposition home or self-care (01) ==
LOC: FB.ED 15:53
DX: M54.41 Lumbago with sciatica, right side (principal); I10 Essential (primary) hypertension; J45.909 Unspecified asthma, uncomplicated; Z87.891 Personal history of nicotine dependence; Z98.890 Other specified postprocedural states; Z79.899 Other long term (current) drug therapy; Z88.0 Allergy status to penicillin; Z88.1 Allergy status to other antibiotic agents; Z91.09 Other allergy status, other than to drugs and biological substances
CPT/HCPCS: 36415; 72131; 80053; 81001; 85025; 99283; A9270; 99284

== ENCOUNTER 2017-03-10 19:17 | Emergency (ER) | payer MEDICARE, MEDICAID ==
[2017-03-10 19:54] VITALS: BP 144/95
--- NOTE | 2017-03-10 21:41 | ER ---
DATE SEEN: 03/10/2017 CHIEF COMPLAINT: Ear pain. HISTORY OF PRESENT ILLNESS: This is a 41-year-old male with recurrent ringing and roaring in the left ear. He is here for the same reason tonight. He complains that the roaring has become sharp and gets worse when he claps his hand or when he gets upset. There is no associated hearing loss or headache. He was here last night and had a CT of the head. He is wondering about the results. He is worried that he could have a tumor. REVIEW OF SYSTEMS: He has no dizziness, fever, or chills. ALLERGIES: Reviewed. SOCIAL HISTORY: He quit smoking recently. PHYSICAL EXAMINATION: VITAL SIGNS: He has a blood pressure of 144/95, pulse 82, and temperature 98.4. HEAD: Normocephalic. EYES: Normal. EARS: External ears are normal. Ear canals are patent. TMs are intact bilaterally. NECK: Supple. MENTAL STATUS: Answers questions well. RECORDS: I reviewed the ER record from last night. I also reviewed the CT report that showed no obvious pathology. FINAL IMPRESSION: 1. Tinnitus. 2. Anxiety. PLAN: I reassured him. I advised him that he will need to follow up with his PCP tomorrow. However, if he is not satisfied, maybe he could go to [place] and see an Ear, Nose, and Throat specialist. I do not have anything to offer him tonight on an emergency basis. /[id number] ALEXA/COLTON
== END 2017-03-10 20:05 | disposition home or self-care (01) ==
LOC: FB.ED 19:17
DX: H93.12 Tinnitus, left ear (principal); F41.9 Anxiety disorder, unspecified
CPT/HCPCS: 99281; 99283

== ENCOUNTER 2017-05-16 15:29 | Emergency (ER) | payer MEDICARE, MEDICAID ==
[2017-05-16 15:40] VITALS: BP 152/94
--- NOTE | 2017-05-17 00:54 | ER ---
DATE SEEN: 05/16/2017 TIME SEEN: 1600 hours. REASON FOR VISIT: Ear noises. HISTORY OF PRESENT ILLNESS: This is a 41-year-old male with chronic roaring sounds from the left ear. It started for at least 5 months, seems to get worse. The latest episode started this morning. He has been using Flonase thinking it might be sinus congestion, but that is not helpful. He has had a CT scan, which has been unrevealing. His main worry is that it could be a tumor or aneurysm or because of his previous tobacco use. REVIEW OF SYSTEMS: He has no headache. No visual disturbance. He complains of insomnia and difficulty sleeping. PAST MEDICAL HISTORY: PTSD and anxiety. ALLERGIES: Reviewed. MEDICATIONS: Reviewed. PHYSICAL EXAMINATION: GENERAL: He is not in any cardiopulmonary distress. VITAL SIGNS: He is afebrile. His initial blood pressure is 152/94. EARS: External ears are normal. The canals are patent. TMs are intact x2. MENTAL STATUS: Alert. Answers questions well. No signs of saritha or psychosis. IMPRESSION: Tinnitus. PLAN: Reassurance. The patient has an appointment in this coming weeks with ENT. I advised him to keep that appointment. In the meantime, I did not find any evidence of infection or tumor. /[id number] ALEXA/COLTON
== END 2017-05-16 15:50 | disposition home or self-care (01) ==
LOC: FB.ED 15:29
DX: H93.12 Tinnitus, left ear (principal)
CPT/HCPCS: 99282; 99283

== ENCOUNTER → 2017-06-07 18:33 | Emergency (ER) | payer MEDICARE, MEDICAID | END | disposition left against medical advice (07) | LOC: FB.ED 18:33 | DX: Z53.21 Procedure and treatment not carried out due to patient leaving prior to being seen by health care provider (principal) | CPT/HCPCS: 99281 ==

== ENCOUNTER 2017-07-30 22:38 | Emergency (ER) | payer MEDICARE, MEDICAID ==
--- NOTE | 2017-07-31 00:57 | ER ---
DATE SEEN: 07/30/2017 REASON FOR VISIT: Plugging of the ears. HISTORY OF PRESENT ILLNESS: This is a 42-year-old male with chronic plugging of his ears. He complains that it has gotten worse in the last few days. Constant humming noise, fullness, and pain in both ears. Symptoms get better after he leaves the house and worse when he gets back into the house. He is convinced that mold also seems to make it worse. He does have anxiety, takes clonazepam with no relief. Recently, he had a CT of the sinuses that was negative. An MRA of the brain showed a possible aneurysm less than 3 mm in size. REVIEW OF SYSTEMS: He complains of no headache today. He denies any chest pain. CURRENT MEDICATIONS: Please see the nurse's notes. He takes, 1. Clonazepam. 2. Hydrochlorothiazide. 3. Celexa. 4. He also takes p.r.n. albuterol. PHYSICAL EXAMINATION: GENERAL: He is not in any cardiopulmonary distress. VITAL SIGNS: He has a blood pressure 160 systolic. He is afebrile, and he has a normal pulse. HEAD: Normal size. EYES: PERRL. NECK: Supple. EARS: Wax was noted in both canals. The left is worse, but the TMs were visible and intact. MENTAL STATUS: Normal affect. No delusions, sarihta, or psychosis noted. RECORD: I reviewed the [place] record to include the MRI, neurosurgery report, and CT of the sinuses. The patient has an appointment in 2 weeks with ENT. IMPRESSION: 1. Eustachian tube dysfunction. 2. Tinnitus. 3. Anxiety. PLAN: I offered him Valium 10 mg IM, but the patient is driving and would not be able to take that. I offered lavage by the nurse. He declined. He would use hydrogen peroxide at home. I advised him to use antihistamines p.r.n., follow up with the ENT in 2 weeks. Return to the ED with any worsening symptoms. TIME SEEN: 2300 hours. /[id number] ALEXA/COLTON
[2017-07-31 06:31] VITALS: BP 153/85
== END 2017-07-30 23:30 | disposition home or self-care (01) ==
LOC: FB.ED 22:38
DX: H69.93 Unspecified Eustachian tube disorder, bilateral (principal); H93.13 Tinnitus, bilateral; F41.9 Anxiety disorder, unspecified; Z79.899 Other long term (current) drug therapy
CPT/HCPCS: 99282; 99283

== ENCOUNTER 2017-07-31 23:05 | Emergency (ER) | payer MEDICARE, MEDICAID | END 2017-07-31 23:30 | disposition left against medical advice (07) | LOC: FB.ED 23:05 | DX: Z53.21 Procedure and treatment not carried out due to patient leaving prior to being seen by health care provider (principal) ==

== ENCOUNTER 2017-09-13 18:46 | Emergency (ER) | payer MEDICARE, MEDICAID ==
--- NOTE | 2017-09-13 19:10 | EDM.PDOC ---
ED HPI GENERAL MEDICAL PROBLEM - General Chief Complaint: Eye Problems Stated Complaint: SORE LEFT EYE Time Seen by Provider: 09/13/17 19:07 Source of Information: Reports: Patient History Limitations: Reports: Uncooperative - History of Present Illness INITIAL COMMENTS - FREE TEXT/NARRATIVE: Patient left AMA before an interview and examination could be conducted for no apparent reason. Nurse advised follow up with PCP. - Related Data Allergies Allergy/AdvReac Type Severity Reaction Status Date / Time amoxicillin Allergy Rash Verified 09/13/17 19:03 Penicillins Allergy Rash Verified 09/13/17 19:03 povidone-iodine Allergy Rash Verified 09/13/17 19:03 [From Betadine] soap [From Betadine] Allergy Rash Verified 09/13/17 19:03 Home Meds: Home Meds Citalopram Hydrobromide [Celexa] 30 mg PO DAILY 03/05/16 [History] clonazePAM [Klonopin] 0.5 mg PO BID PRN 03/05/16 [History] Hydrochlorothiazide 25 mg PO DAILY 06/06/16 [History] Albuterol [Proventil HFA] 1 - 2 puff INH DAILY PRN 01/26/17 [History] Ibuprofen [Advil] 400 mg PO Q6H PRN 07/31/17 [History] Past Medical History - Past Health History Medical/Surgical History: Denies Medical/Surgical History HEENT History: Reports: Otitis Media Cardiovascular History: Reports: Hypertension Respiratory History: Reports: Asthma Gastrointestinal History: Reports: GERD, Other (See Below) Other Gastrointestinal History: Lactose intolerance. Chronic left lower quad pain. Musculoskeletal History: Reports: None Neurological History: Reports: Cerebral Aneurysms, Other (See Below) Other Neuro History: States he has a small aneurysm in his brain. Psychiatric History: Reports: ADHD, Anxiety, Bipolar, PTSD, Suicide Attempt Dermatologic History: Reports: None - Infectious Disease History Infectious Disease History: Reports: Chicken Pox, Shingles - Past Surgical History GI Surgical History: Reports: Small Bowel, Other (See Below) Other GI Surgeries/Procedures: NEC. States he had intestinal surgery as a . Musculoskeletal Surgical History: Reports: Other (See Below) Other Musculoskeletal Surgeries/Procedures:: Left rotator cuff injury. Social & Family History - Family History Family Medical History: Noncontributory - Tobacco Use Smoking Status *Q: Former Smoker Years of Tobacco use: 5 Packs/Tins Daily: 1 Used Tobacco, but Quit: No Month/Year Tobacco Last Used: 02/2017 Second Hand Smoke Exposure: No - Caffeine Use Caffeine Use: Reports: Coffee, Soda - Alcohol Use Days Per Week of Alcohol Use: 0 - Recreational Drug Use Recreational Drug Use: No Drug Use in Last 12 Months: No ED ROS GENERAL - Review of Systems Review Of Systems: Unable To Obtain ED EXAM GENERAL W FULL EYE - Physical Exam Exam: Not Obtained (left AMA) Course - Vital Signs Text/Narrative:: Patient left AMA before an interview or exam could be conducted for no apparent reason. Departure - Departure Time of Disposition: 19:09 Disposition: Against Medical Advice 07 Condition: Undetermined Clinical Impression: Other eye problems - Discharge Information Referrals: Eliel Flores MD [Primary Care Provider] - - Problem List & Annotations (1) Other eye problems SNOMED Code(s): 410552558 Code(s): H57.9 - UNSPECIFIED DISORDER OF EYE AND ADNEXA Status: Acute Annotation/Comment:: Left AMA. - Problem List Review Problem List Initiated/Reviewed/Updated: Yes - Assessment/Plan Plan: Nurse advised follow up with PCP.
[2017-09-13 19:19] VITALS: BP 149/100
== END 2017-09-13 19:09 | disposition left against medical advice (07) ==
LOC: FB.ED 18:46
DX: Z53.20 Procedure and treatment not carried out because of patient's decision for unspecified reasons (principal)
CPT/HCPCS: 99282

== ENCOUNTER 2017-09-24 17:48 | Emergency (ER) | payer MEDICARE, MEDICAID ==
[2017-09-24] MEDS ORDERED: metroNIDAZOLE 500 MG Tab PO ONE (19:45)
[2017-09-24 20:19] VITALS: BP 153/85
--- NOTE | 2017-09-26 10:44 | ER ---
DATE SEEN: 09/24/2017 TIME SEEN: 1910 hours. HISTORY OF PRESENT ILLNESS: This is a 42-year-old, previously diagnosed over the last 2 to 3 months with MRI, a 1.3 cm brain hemorrhage on the left side of his brain. He has been seeing a neurosurgeon. He thought the neurosurgeon felt that his sound, ear noise is not from the aneurysm. Since then, he has had increase in loudness of the ear noise. He also has had some swelling and tenderness superior to the left angle of the jaw (parotid region). He chews tobacco on a daily basis. Nonsmoker. He notes that if he stands up quickly, the sound gets worse or if he is lying down, it is difficult to sleep at night because of the humming sound in his ear. He denies paresis, weakness, numbness, compromise in his vision, dizziness, lightheadedness, or headaches. He has no change in the sensation of his teeth. No recent dental infection or dental caries noted or fracture of his teeth. He has not been on antibiotics recently. He does have gingivitis, poor dentition, dependent edema, chronic anxiety, and tinnitus. ALLERGIES: He is allergic to penicillin, amoxicillin, Povidine, and soap. CURRENT MEDICATIONS: 1. Albuterol. 2. Ibuprofen. 3. Klonopin. 4. Hydrochlorothiazide. 5. Celexa. REVIEW OF SYSTEMS: Negative except for noted above. He denies any compromised vision or diplopia or difficulty walking. PHYSICAL EXAMINATION: VITAL SIGNS: Blood pressure 163/92, heart rate 62 and regular, respirations 18, oxygen saturation 9%, and temperature is 36.4 degrees centigrade. HEENT: Alert, in mild distress. PERRLA intact. Eyegrounds normal appearance. No abnormality optic discs and cuff. Hearing is intact. External canal observation is negative. Pressure on the left temporal artery is without tenderness and the right temporal artery. He has some mild induration in the parotid gland on the left side compared to the right. This could be felt intraorally and also externally. There is mild discomfort when it is palpated, it is not extensive. He has intraoral staining between the gingiva and the base of the teeth with brown tobacco stains, dark black-brown appearance. Tooth #19 has lost its crown, but it is not tender to percussion. The other teeth are not tender to percussion. No new cavitary lesions or fractures of crowns of the teeth. NECK: Minimal cervical adenopathy. No bruits in the neck. No thyromegaly. LUNGS: Clear without rales or rhonchi. HEART: S1 and S2. No murmur. ABDOMEN: Soft. No guarding. No abdominal discomfort. EXTREMITIES: Trace pedal edema in lower extremities. Deep tendon reflexes are hypoactive. NEUROLOGIC: Cranial nerves II through XII intact. Oriented x3. Gait intact. No loss of strength in the upper and lower extremities. ASSESSMENT: Parotiditis. UP TO MEDINA:advises use clindamycin and metronidazole. If the patient has to be admitted for this, but this is a mild case. I think he could be treated orally and empirically for parotiditis. PLAN: Metronidazole 500 mg one tablet t.i.d. for 7 days. Follow up with doctor in 7 days. Discontinue chewing tobacco and can use gum to improve parotid flow. At this point, differential would include: 1. Parotid infection. 2. Parotiditis secondary to chewing tobacco irritation of the parotid gland. 3. Doubt intraoral cancer. 4. Possibly rule out problems of stone. 5. Rule out parotid insufficiency secondary to vascular inflammation caused by chewing tobacco. 6. Rule out parotid tumor. Doubt the latter. /[id number] DYANA/COLTON DIAS
== END 2017-09-24 19:57 | disposition home or self-care (01) ==
LOC: FB.ED 17:48
DX: K11.20 Sialoadenitis, unspecified (principal); Z88.0 Allergy status to penicillin; Z88.1 Allergy status to other antibiotic agents; Z88.8 Allergy status to other drugs, medicaments and biological substances; Z91.09 Other allergy status, other than to drugs and biological substances; F17.228 Nicotine dependence, chewing tobacco, with other nicotine-induced disorders
CPT/HCPCS: 99282; A9270

== ENCOUNTER 2017-09-30 01:14 | Emergency (ER) | payer MEDICARE, MEDICAID ==
[2017-09-30 02:07] VITALS: BP 157/83
--- NOTE | 2017-09-30 03:29 | ER ---
DATE SEEN: 09/30/2017 CHIEF COMPLAINT: Pain in the jaw. HISTORY OF PRESENT ILLNESS: This is a 42-year-old male with pain in the left jaw, chronic. Complains that the pain is now worse tonight. He was seen earlier and is asking for the results of the CT scan. He is basically worried that he could have cancer of the jaw. REVIEW OF SYSTEMS: Complains of pain in the ear, tingling, numbness, but denies any nausea, vomiting, sore throat. Neither does he have chest pain or shortness of breath. PAST MEDICAL HISTORY: Anxiety disorder, hypokalemia, PTSD. ALLERGIES: Penicillin, iodine, soap, amoxicillin. PHYSICAL EXAMINATION: GENERAL: He is not in any pulmonary distress. VITAL SIGNS: Blood pressure 157/83, pulse 76, and temperature 97.9. ENT: Absolutely negative. NECK: No thyromegaly. EYES: Normal. CHEST: Clear. MENTAL STATUS: No signs of psychosis. IMPRESSION: Temporomandibular joint dysfunction, left side. PLAN: Heating pad, Tylenol, ibuprofen, reassurance. He has an appointment with ENT coming up. I offered him an injection or any narcotic for pain, which he declined. /[id number] ALEXA/COLTON
== END 2017-09-30 02:16 | disposition home or self-care (01) ==
LOC: FB.ED 01:14
DX: M26.602 Left temporomandibular joint disorder, unspecified (principal); Z88.0 Allergy status to penicillin; Z91.09 Other allergy status, other than to drugs and biological substances; Z88.1 Allergy status to other antibiotic agents
CPT/HCPCS: 99283

== ENCOUNTER 2017-10-22 13:08 | Emergency (ER) | payer MEDICARE, MEDICAID ==
[2017-10-22 15:55] VITALS: BP 125/85
--- NOTE | 2017-10-25 13:55 | ER ---
DATE SEEN: 10/22/2017 TIME: The patient was seen at 1335 hours. CHIEF COMPLAINT: Swelling in the ankles. HISTORY OF PRESENT ILLNESS: The patient has been more depressed lately. He has been sitting in bed for the last three days, and not been up or moving around very much. He has had hot dogs within the last 2 days, and notes he has an increased swelling. He had tortilline and other meals. He denies headache, neck stiffness, shortness of breath, cough, chest pain, irregular heartbeat, or abdominal discomfort. He does has swelling of his ankles and had difficulty putting his boots on this morning and more depressed. He is not suicidal. He chews tobacco. PAST MEDICAL HISTORY: He has a significant health history, which he had last year in 2017 of 28 visits to the emergency room, and in 2018, he has now had 12 visits as of today. ALLERGIES: He is allergic to penicillin, amoxicillin, iodine, and soap that has betadine in it. CURRENT MEDICATIONS: 1. Klonopin 0.5 mg b.i.d. 2. Hydrochlorothiazide 25 mg daily. 3. Celexa 30 mg daily. REVIEW OF SYSTEMS: Negative except for the noted above. He denies leg pains and denies chest pain, shortness of breath, abdominal discomfort, changes in his bowels, constipation, blood in the stool or black tarry stools or difficulty passing urine or frequency or urgency, or muscle aches. PHYSICAL EXAMINATION: VITAL SIGNS: Blood pressure was 163/92; repeat blood pressure was 153/85, heart rate was 64, respirations were 18, oxygen saturation was 99%, and temperature was 36.4 degrees centigrade. GENERAL: Mildly overweight at 106.59 kg. Alert and overweight man, in no acute distress. He has multiple tattoos in forearm. HEENT: PERRLA intact. Pharynx without abnormality. NECK: Without thyromegaly or masses. No cervical adenopathy. LUNGS: Clear without rales, rhonchi, or wheezes. HEART: S1 and S2. No irregular rate or rhythm. ABDOMEN: Soft. No guarding. No abdominal discomfort. MUSCULOSKELETAL: No chest wall pain to palpation. Upper and lower extremities are negative. No arthritis. Lower extremities, pedal edema of 1+. Dorsalis pedis is intact. No vascular tenderness or vascular structure tenderness in the legs bilaterally. LABORATORY FINDINGS: Hypokalemia with potassium of 3.2, sodium of 139, chloride of 101, CO2 of 32, creatinine of 1.1, and BUN of 15; and trace elevation in liver enzymes of AST 33, ALT 64, and alkaline phosphatase 44. ASSESSMENT AND PLAN: 1. The patient's swelling in the lower extremities is secondary to lying in bed for three days - vascular stasis. 2. I explained to him that the heart has two pumps in the body, one directed to the heart, and the other part is a muscular pump that pumps fluid back into the lower extremity for thin-walled, non-elastic veins. He needs to get up and walk around to diminish the swelling in his lower extremities. 3. There is no evidence for kidney disease, myocardial infarction, or myocardial disease. I did not do an EKG. He has not had any chest pain. I did not do a troponin. Those two are not felt to be necessary. 4. Has multiplicity of other social issues especially with depression. He is not suicidal. 5. He has anxiety. 6. He frequents the ER, and usually has fairly benign medical conditions. He has had low back pain before, chronic anxiety, tinnitus, ear pain, toothaches, and poor dentition. He has had dependent edema noted before in the past and hypokalemia, all those are not new problems. The patient was advised to take potassium. He did not want a prescription for potassium to take [id number] as potassium pills has approximately 3 mEq (this may vary) per tablet. Consequently, he needs at least 6 to 7 tablets a day, equivalent of 30 mEq. He is aware of this and does not want a prescription and feels it is cheaper to buy. Follow up with his doctor in a week or earlier if worse. /[id number] DYANA/COLTON
== END 2017-10-22 15:30 | disposition home or self-care (01) ==
LOC: FB.ED 13:08
DX: I87.8 Other specified disorders of veins (principal); F41.9 Anxiety disorder, unspecified; F32.9 Major depressive disorder, single episode, unspecified; E87.6 Hypokalemia; F17.228 Nicotine dependence, chewing tobacco, with other nicotine-induced disorders; Z79.899 Other long term (current) drug therapy
CPT/HCPCS: 36415; 80053; 99282; 99284

== ENCOUNTER 2018-07-08 09:04 | Emergency (ER) | payer MEDICARE, MEDICAID ==
[2018-07-08] MEDS ORDERED: Ketorolac 30 MG/ML SDV IVPUSH ONE (09:25)
[2018-07-08 13:02] VITALS: BP 153/67
--- NOTE | 2018-07-11 16:22 | EDM.PDOC ---
ED HPI GENERAL MEDICAL PROBLEM - General Chief Complaint: Genitourinary Problem Stated Complaint: UTI AND POSSIBLE BLADDER Time Seen by Provider: 07/08/18 09:25 History Limitations: Reports: No Limitations - History of Present Illness INITIAL COMMENTS - FREE TEXT/NARRATIVE: jr Gaspar is a pleasant 43-year-old whom I have known from multiple ED visits for psychiatric issues. Has has a previous history of renal stones. He noated onset of flank pain yesterday progressively increase last night since gone to his bladder and his penis. While he was waiting in the ED he had increased penile pain and found himself pulling a stone from the meatus of his penis. He has moderate bladder santi penis discomfort, but much less than was several hours ago. left flank Pain Score (Numeric/FACES): 8 - Related Data Allergies Allergy/AdvReac Type Severity Reaction Status Date / Time amoxicillin Allergy Rash Verified 03/30/18 02:27 Penicillins Allergy Rash Verified 03/30/18 02:27 povidone-iodine Allergy Rash Verified 03/30/18 02:28 [From Betadine] soap [From Betadine] Allergy Rash Verified 03/30/18 02:28 peanut butter Allergy Stomach Uncoded 03/30/18 02:29 Upset Home Meds: Home Meds Citalopram Hydrobromide [Celexa] 30 mg PO DAILY 03/05/16 [History] clonazePAM [Klonopin] 0.5 mg PO BID PRN 03/05/16 [History] Hydrochlorothiazide 25 mg PO DAILY 06/06/16 [History] Albuterol [Ventolin HFA] 2 puff INH Q4H PRN 03/30/18 [History] Ibuprofen [Advil] 800 mg PO ASDIRECTED 03/30/18 [History] Metoprolol Succinate 25 mg PO DAILY #30 tab.er.24h 07/08/18 [Rx] Past Medical History - Past Health History Medical/Surgical History: Denies Medical/Surgical History HEENT History: Reports: Otitis Media Cardiovascular History: Reports: Hypertension Respiratory History: Reports: Asthma Gastrointestinal History: Reports: GERD, Other (See Below) Other Gastrointestinal History: Lactose intolerance. Chronic left lower quad pain. Genitourinary History: Reports: Renal Calculus Musculoskeletal History: Reports: Arthritis, Back Pain, Chronic, Fracture, Osteoarthritis, Other (See Below) Other Musculoskeletal History: jaw problems, possible TMJ. 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 Psychiatric History: Reports: ADHD, Anxiety, Bipolar, Depression, Panic Attack, Psych Hospitalization(s), PTSD, Suicide Attempt Other Psychiatric History: paranoia Endocrine/Metabolic History: Reports: Obesity/BMI 30+ Hematologic History: Reports: Blood Transfusion(s) Dermatologic History: Reports: Eczema - Infectious Disease History Infectious Disease History: Reports: Chicken Pox, Shingles - Past Surgical History Head Surgeries/Procedures: Reports: None GI Surgical History: Reports: Colonoscopy, Small Bowel, Other (See Below) Other GI Surgeries/Procedures: NEC. States he had intestinal surgery as a , had colostomy as infant. Male Surgical History: Reports: None Neurological Surgical History: Reports: None Oncologic Surgical History: Reports: None Social & Family History - Family History Family Medical History: Noncontributory - Tobacco Use Smoking Status *Q: Former Smoker Used Tobacco, but Quit: Yes Month/Year Tobacco Last Used: 8 years ago. - Caffeine Use Caffeine Use: Reports: Coffee, Soda - Recreational Drug Use Recreational Drug Use: No ED ROS GENERAL - Review of Systems Review Of Systems: ROS reveals no pertinent complaints other than HPI. Constitutional: Reports: No Symptoms HEENT: Reports: No Symptoms Respiratory: Reports: Cough Cardiovascular: Reports: No Symptoms : Reports: Other (Previous history of stone and passage. No previous history of stone analysis.) Musculoskeletal: Reports: No Symptoms Skin: Reports: No Symptoms Psychiatric: Reports: Depression ED EXAM, RENAL/ - Physical Exam Exam: See Below Exam Limited By: No Limitations General Appearance: Mild Distress Eye Exam: Bilateral Eye: Normal Inspection Ears: Normal External Exam, Normal Canal, Hearing Grossly Normal, Normal TMs Nose: Normal Inspection, Normal Mucosa Throat/Mouth: Normal Inspection, Normal Lips, Normal Gums, Normal Oropharynx, Normal Voice, Other (fair dentition) Head: Atraumatic, Normocephalic Neck: Normal Inspection Respiratory/Chest: No Respiratory Distress, Lungs Clear, Normal Breath Sounds, No Accessory Muscle Use, Chest Non-Tender Cardiovascular: Normal Peripheral Pulses, Regular Rate, Rhythm, No Edema, No Gallop, No JVD, No Murmur, No Rub GI/Abdominal: Normal Bowel Sounds, Soft, Non-Tender, No Organomegaly, No Distention, No Abnormal Bruit, Other (No flank pain with percussion) (Male) Exam: No Hernia, Deferred Rectal (Males) Exam: Deferred Extremities: Normal Inspection, Normal Range of Motion, Non-Tender, No Pedal Edema, Normal Capillary Refill Neurological: Oriented, CN II-XII Intact, Normal Cognition, Normal Gait, Normal Reflexes, No Motor/Sensory Deficits Psychiatric: Normal Affect, Normal Mood Skin Exam: Warm, Dry, Intact, Normal Color Lymphatic: No Adenopathy Course - Vital Signs Last Recorded V/S: Last Vital Signs Temp 35.9 C 07/08/18 10:42 Pulse 56 L 07/08/18 10:42 Resp 18 07/08/18 10:42 BP 153/67 H 07/08/18 10:42 Pulse Ox 100 07/08/18 10:42 - Orders/Labs/Meds Labs: Laboratory Tests 07/08/18 07/08/18 07/08/18 Range/Units 09:09 09:09 09:40 WBC (4.5-12.0) X10-3/uL RBC (4.30-5.75) x10(6)uL Hgb (11.5-15.5) g/dL Hct (30.0-51.3) % MCV (80-96) fL MCH (27.7-33.6) pg MCHC (32.2-35.4) g/dL RDW (11.5-15.5) % Plt Count (125-369) X10(3)uL MPV (7.4-10.4) fL Neut % (Auto) (46-82) % Lymph % (Auto) (13-37) % Falls % (Auto) (4-12) % Eos % (Auto) (1.0-5.0) % Baso % (Auto) (0-2) % Neut # (Auto) (1.6-8.3) # Lymph # (Auto) (0.6-5.0) # Falls # (Auto) (0.0-1.3) # Eos # (Auto) (0.0-0.8) # Baso # (Auto) (0.0-0.2) # Sodium 141 (135-145) mmol/L Potassium 3.5 (3.5-5.3) mmol/L Chloride 101 (100-110) mmol/L Carbon Dioxide 31 (21-32) mmol/L BUN 15 (7-18) mg/dL Creatinine 1.1 (0.70-1.30) mg/dL Est Cr Clr Drug Dosing 87.48 mL/min Estimated GFR (MDRD) > 60 (>60) BUN/Creatinine Ratio 13.6 (9-20) Glucose 102 (80-116) mg/dL Calcium 10.0 (8.6-10.2) mg/dL Total Bilirubin 0.6 (0.1-1.3) mg/dL AST 24 D (5-25) IU/L ALT 57 H D (12-36) U/L Alkaline Phosphatase 56 (56-112) IU/L Total Protein 7.1 (6.0-8.0) g/dL Albumin 3.9 (3.5-5.2) g/dL Globulin 3.2 g/dL Albumin/Globulin Ratio 1.2 Amylase (25-115) U/L Urine Color Yellow (YELLOW) Urine Appearance Slightly cloudy (CLEAR) Urine pH 7.0 H (5.0-6.5) Ur Specific [place] 1.010 (1.010-1.025) Urine Protein Negative (NEGATIVE) mg/dL Urine Glucose (UA) Normal (NEGATIVE) mg/dL Urine Ketones Negative (NEGATIVE) mg/dL Urine Occult Blood Large H (NEGATIVE) Urine Nitrite Negative (NEGATIVE) Urine Bilirubin Negative (NEGATIVE) Urine Urobilinogen Normal (NEGATIVE) mg/dL Ur Leukocyte Esterase Negative (NEGATIVE) Urine RBC 50-75 H (0) Urine WBC 0-5 (0) Ur Squamous Epith Cells Few H (NS,R,O) Urine Bacteria Few H (NS) Urine Opiates Screen Negative (NEGATIVE) Ur Oxycodone Screen Negative (NEGATIVE) Ur Propoxyphene Screen Negative (NEGATIVE) Ur Barbituates Screen Negative (NEGATIVE) Ur Tricyclics Screen Negative (NEGATIVE) Ur Phencyclidine Scrn Negative (NEGATIVE) Ur Amphetamine Screen Negative (NEGATIVE) Urine MDMA Screen Negative (NEGATIVE) U Benzodiazepines Scrn Negative (NEGATIVE) U Cocaine Metab Screen Negative (NEGATIVE) U Marijuana (THC) Screen Negative (NEGATIVE) 07/08/18 07/08/18 Range/Units 09:40 09:40 WBC 5.1 (4.5-12.0) X10-3/uL RBC 5.09 (4.30-5.75) x10(6)uL Hgb 15.5 (11.5-15.5) g/dL Hct 45.0 (30.0-51.3) % MCV 88.4 (80-96) fL MCH 30.4 (27.7-33.6) pg MCHC 34.4 (32.2-35.4) g/dL RDW 12.0 (11.5-15.5) % Plt Count 182 (125-369) X10(3)uL MPV 8.3 (7.4-10.4) fL Neut % (Auto) 67.5 (46-82) % Lymph % (Auto) 21.4 (13-37) % Falls % (Auto) 7.8 (4-12) % Eos % (Auto) 3 (1.0-5.0) % Baso % (Auto) 1 (0-2) % Neut # (Auto) 3.5 (1.6-8.3) # Lymph # (Auto) 1.1 (0.6-5.0) # Falls # (Auto) 0.4 (0.0-1.3) # Eos # (Auto) 0.1 (0.0-0.8) # Baso # (Auto) 0.0 (0.0-0.2) # Sodium (135-145) mmol/L Potassium (3.5-5.3) mmol/L Chloride (100-110) mmol/L Carbon Dioxide (21-32) mmol/L BUN (7-18) mg/dL Creatinine (0.70-1.30) mg/dL Est Cr Clr Drug Dosing mL/min Estimated GFR (MDRD) (>60) BUN/Creatinine Ratio (9-20) Glucose (80-116) mg/dL Calcium (8.6-10.2) mg/dL Total Bilirubin (0.1-1.3) mg/dL AST (5-25) IU/L ALT (12-36) U/L Alkaline Phosphatase (56-112) IU/L Total Protein (6.0-8.0) g/dL Albumin (3.5-5.2) g/dL Globulin g/dL Albumin/Globulin Ratio Amylase 50 (25-115) U/L Urine Color (YELLOW) Urine Appearance (CLEAR) Urine pH (5.0-6.5) Ur Specific [place] (1.010-1.025) Urine Protein (NEGATIVE) mg/dL Urine Glucose (UA) (NEGATIVE) mg/dL Urine Ketones (NEGATIVE) mg/dL Urine Occult Blood (NEGATIVE) Urine Nitrite (NEGATIVE) Urine Bilirubin (NEGATIVE) Urine Urobilinogen (NEGATIVE) mg/dL Ur Leukocyte Esterase (NEGATIVE) Urine RBC (0) Urine WBC (0) Ur Squamous Epith Cells (NS,R,O) Urine Bacteria (NS) Urine Opiates Screen (NEGATIVE) Ur Oxycodone Screen (NEGATIVE) Ur Propoxyphene Screen (NEGATIVE) Ur Barbituates Screen (NEGATIVE) Ur Tricyclics Screen (NEGATIVE) Ur Phencyclidine Scrn (NEGATIVE) Ur Amphetamine Screen (NEGATIVE) Urine MDMA Screen (NEGATIVE) U Benzodiazepines Scrn (NEGATIVE) U Cocaine Metab Screen (NEGATIVE) U Marijuana (THC) Screen (NEGATIVE) Meds: Medications Discontinued Medications Generic Name Dose Route Start Last Admin Trade Name Jack PRN Reason Stop Dose Admin Ketorolac Tromethamine 30 mg 07/08/18 09:25 Toradol IVPUSH 07/08/18 09:26 ONETIME ONE Departure - Departure Time of Disposition: 10:30 (witnessed renal stone through the meatus of his penis. I saw him pulpy actual stone out of the meatus of the penis. Stool analysis pending. The patient long after he had passed renal stone still had elevated blood pressure. Plan start metoprolol succinate daily.) Disposition: Home, Self-Care 01 Condition: Good Clinical Impression: Renal calculus - Discharge Information *PRESCRIPTION DRUG MONITORING PROGRAM REVIEWED*: Not Applicable *COPY OF PRESCRIPTION DRUG MONITORING REPORT IN PATIENT VONDA: Not Applicable Prescriptions: Metoprolol Succinate 25 mg PO DAILY #30 tab.er.24h Referrals: Eliel Flores MD [Primary Care Provider] - Forms: ED Department Discharge Additional Instructions: It was good you passed the kid stone. You had small amount of lead in the urine because of the stone. Use ibuprofen 600 mg Tylenol 1000 mg together every 6 hours her pain and discomfort. Follow up with 1 week. earlier if worse Your blood pressure was elevated this morning. His elevated medications according to you. Plan started on a beta joseph metoprolol ER 25 mg 1 tablet daily
== END 2018-07-08 13:02 | disposition home or self-care (01) ==
LOC: FB.ED 09:04
DX: N20.0 Calculus of kidney (principal); I10 Essential (primary) hypertension; K21.9 Gastro-esophageal reflux disease without esophagitis; F41.9 Anxiety disorder, unspecified; F31.9 Bipolar disorder, unspecified; Z88.1 Allergy status to other antibiotic agents; Z88.0 Allergy status to penicillin; Z91.018 Allergy to other foods; Z79.899 Other long term (current) drug therapy
CPT/HCPCS: 36415; 80053; 80305-QW; 81001; 82150; 85025; 99284

== ENCOUNTER 2018-09-30 21:07 | Emergency (ER) | payer MEDICARE, MEDICAID ==
[2018-09-30 21:59] VITALS: BP 152/92
--- NOTE | 2018-10-01 22:16 | EDM.PDOC ---
ED HPI GENERAL MEDICAL PROBLEM - General Chief Complaint: ENT Problem Stated Complaint: IRRITATED EYES AND MOUTH Time Seen by Provider: 09/30/18 21:15 Source of Information: Reports: Patient - History of Present Illness INITIAL COMMENTS - FREE TEXT/NARRATIVE: pt with Hx of anxiety , had placed his cat down today and seems very upset about this, is here with concerns regarding red spots under his tongue and thinks it must be cancer, report those spots to be there for years, denies any associated pain or irritation or any other associated sx with them. - Related Data Allergies Allergy/AdvReac Type Severity Reaction Status Date / Time amoxicillin Allergy Rash Verified 09/30/18 22:00 Penicillins Allergy Rash Verified 09/30/18 22:00 povidone-iodine Allergy Rash Verified 09/30/18 22:00 [From Betadine] soap [From Betadine] Allergy Rash Verified 09/30/18 22:00 peanut butter Allergy Stomach Uncoded 09/30/18 21:30 Upset Home Meds: Home Meds Citalopram Hydrobromide [Celexa] 30 mg PO DAILY 03/05/16 [History] clonazePAM [Klonopin] 0.5 mg PO BID PRN 03/05/16 [History] Hydrochlorothiazide 25 mg PO DAILY 06/06/16 [History] Albuterol [Ventolin HFA] 2 puff INH Q4H PRN 03/30/18 [History] Ibuprofen [Advil] 800 mg PO ASDIRECTED 03/30/18 [History] Past Medical History - Past Health History Medical/Surgical History: Denies Medical/Surgical History HEENT History: Reports: Otitis Media Cardiovascular History: Reports: Hypertension Respiratory History: Reports: Asthma Gastrointestinal History: Reports: GERD, Other (See Below) Other Gastrointestinal History: Lactose intolerance. Chronic left lower quad pain. Genitourinary History: Reports: Renal Calculus Musculoskeletal History: Reports: Arthritis, Back Pain, Chronic, Fracture, Osteoarthritis, Other (See Below) Other Musculoskeletal History: jaw problems, possible TMJ. 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 Psychiatric History: Reports: ADHD, Anxiety, Bipolar, Depression, Panic Attack, Psych Hospitalization(s), PTSD, Suicide Attempt Other Psychiatric History: paranoia Endocrine/Metabolic History: Reports: Obesity/BMI 30+ Hematologic History: Reports: Blood Transfusion(s) Dermatologic History: Reports: Eczema - Infectious Disease History Infectious Disease History: Reports: Chicken Pox, Shingles - Past Surgical History Head Surgeries/Procedures: Reports: None GI Surgical History: Reports: Colonoscopy, Small Bowel, Other (See Below) Other GI Surgeries/Procedures: NEC. States he had intestinal surgery as a , had colostomy as infant. Male Surgical History: Reports: None Neurological Surgical History: Reports: None Oncologic Surgical History: Reports: None Social & Family History - Family History Family Medical History: Noncontributory - Caffeine Use Caffeine Use: Reports: Coffee, Soda ED ROS GENERAL - Review of Systems Review Of Systems: See Below Constitutional: Reports: No Symptoms Respiratory: Reports: No Symptoms Cardiovascular: Reports: No Symptoms GI/Abdominal: Reports: No Symptoms Psychiatric: Reports: Anxiety. Denies: Hallucinations, Homicidal Ideation, Suicidal Ideation ED EXAM, GENERAL - Physical Exam Exam: See Below Exam Limited By: No Limitations General Appearance: Alert Throat/Mouth: Normal Lips, Normal Teeth, Normal Gums, Normal Oropharynx, Other ( oral cavity has normal exam, no lesions noticed. ) Course - Vital Signs Text/Narrative:: pt has anxiety regarding loss of his cat. he has normal appearing structures at his oral cavity and was reassured there are no lesions found that he need to be concerned about. Last Recorded V/S: Last Vital Signs Temp 36.6 C 09/30/18 21:10 Pulse 75 09/30/18 21:10 Resp 22 H 09/30/18 21:10 BP 152/92 H 09/30/18 21:10 Pulse Ox 99 09/30/18 21:10 Departure - Departure Time of Disposition: 21:45 Disposition: Home, Self-Care 01 Clinical Impression: Anxiety - Discharge Information Referrals: PCP,None [Primary Care Provider] - Forms: ED Department Discharge - Problem List & Annotations (1) Anxiety SNOMED Code(s): 78650732 Code(s): F41.9 - ANXIETY DISORDER, UNSPECIFIED Status: Acute
== END 2018-09-30 21:50 | disposition home or self-care (01) ==
LOC: FB.ED 21:07
DX: F41.9 Anxiety disorder, unspecified (principal); I10 Essential (primary) hypertension; K21.9 Gastro-esophageal reflux disease without esophagitis; F31.9 Bipolar disorder, unspecified; Z79.899 Other long term (current) drug therapy; Z88.0 Allergy status to penicillin; Z88.1 Allergy status to other antibiotic agents; Z91.09 Other allergy status, other than to drugs and biological substances; Z91.010 Allergy to peanuts
CPT/HCPCS: 99282

== ENCOUNTER 2018-11-22 01:22 | Emergency (ER) | payer MEDICARE, MEDICAID ==
--- NOTE | 2018-11-22 01:50 | EDM.PDOC ---
ED HPI GENERAL MEDICAL PROBLEM - General Stated Complaint: RT SIDE PAIN Time Seen by Provider: 11/22/18 01:45 Source of Information: Reports: Patient History Limitations: Reports: No Limitations - History of Present Illness INITIAL COMMENTS - FREE TEXT/NARRATIVE: Mr. Feliz is a 43-year-old male pain epigastrium and radiates to the right upper quadrant. Sharp,constant, associated with the vomiting, early satiety and bloating. On further inquiry; he endorses that the symptoms have been present for several years. They're also associated with anxiety and stress. He denies constipation fever chills or chest pain. He tried ranitidine tonight with some relief, and some chronic pain with no improvement. - Related Data Allergies Allergy/AdvReac Type Severity Reaction Status Date / Time amoxicillin Allergy Rash Verified 09/30/18 22:00 Penicillins Allergy Rash Verified 09/30/18 22:00 povidone-iodine Allergy Rash Verified 09/30/18 22:00 [From Betadine] soap [From Betadine] Allergy Rash Verified 09/30/18 22:00 peanut butter Allergy Stomach Uncoded 09/30/18 21:30 Upset Home Meds: Home Meds Citalopram Hydrobromide [Celexa] 30 mg PO DAILY 03/05/16 [History] clonazePAM [Klonopin] 0.5 mg PO BID PRN 03/05/16 [History] Hydrochlorothiazide 25 mg PO DAILY 06/06/16 [History] Albuterol [Ventolin HFA] 2 puff INH Q4H PRN 03/30/18 [History] Ibuprofen [Advil] 800 mg PO ASDIRECTED 03/30/18 [History] Past Medical History - Past Health History Medical/Surgical History: Denies Medical/Surgical History HEENT History: Reports: Otitis Media Cardiovascular History: Reports: Hypertension Respiratory History: Reports: Asthma Gastrointestinal History: Reports: GERD, Other (See Below) Other Gastrointestinal History: Lactose intolerance. Chronic left lower quad pain. Genitourinary History: Reports: Renal Calculus Musculoskeletal History: Reports: Arthritis, Back Pain, Chronic, Fracture, Osteoarthritis, Other (See Below) Other Musculoskeletal History: jaw problems, possible TMJ. 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 Psychiatric History: Reports: ADHD, Anxiety, Bipolar, Depression, Panic Attack, Psych Hospitalization(s), PTSD, Suicide Attempt Other Psychiatric History: paranoia Endocrine/Metabolic History: Reports: Obesity/BMI 30+ Hematologic History: Reports: Blood Transfusion(s) Dermatologic History: Reports: Eczema - Infectious Disease History Infectious Disease History: Reports: Chicken Pox, Shingles - Past Surgical History Head Surgeries/Procedures: Reports: None GI Surgical History: Reports: Colonoscopy, Small Bowel, Other (See Below) Other GI Surgeries/Procedures: NEC. States he had intestinal surgery as a , had colostomy as infant. Male Surgical History: Reports: None Neurological Surgical History: Reports: None Oncologic Surgical History: Reports: None Social & Family History - Family History Family Medical History: Noncontributory - Caffeine Use Caffeine Use: Reports: Coffee, Soda ED ROS GENERAL - Review of Systems Review Of Systems: ROS reveals no pertinent complaints other than HPI. ED EXAM, GI/ABD - Physical Exam Exam: See Below Exam Limited By: No Limitations General Appearance: Alert, Anxious Ears: Normal External Exam Cardiovascular: Normal Peripheral Pulses, Regular Rate, Rhythm GI/Abdominal Exam: Normal Bowel Sounds, Soft, Non-Tender Psychiatric: Anxious Skin Exam: Warm, Dry Lymphatic: No Adenopathy Departure - Departure Time of Disposition: 01:47 Disposition: Home, Self-Care 01 Condition: Good Clinical Impression: Anxiety - Discharge Information Referrals: Eliel Flores MD [Primary Care Provider] - - Problem List & Annotations (1) Functional dyspepsia Status: Acute Current Visit: Yes (2) Chronic anxiety SNOMED Code(s): 104972666 Code(s): F41.9 - ANXIETY DISORDER, UNSPECIFIED Status: Acute Current Visit: No - Problem List Review Problem List Initiated/Reviewed/Updated: Yes - Assessment/Plan Plan: Spent 25-30 minutes with the patient. I discussed various differential diagnosis , including, but not limited to,celiac disease, gallbladder disease, peptic ulcer disease, pancreatitis, IBS kidney stones, cancer. I offered lab work, and imaging, but patient would like to defer these tests and have them done in the clinic. He states that he's had some testing before that included endoscopy that was virtually unrevealing. I therefore discharged him with no complications and in satisfactory condition in follow-up in tomorrow with PCP Dr. Flores
== END 2018-11-22 01:50 | disposition home or self-care (01) ==
LOC: FB.ED 01:22
DX: F41.9 Anxiety disorder, unspecified (principal); I10 Essential (primary) hypertension; J45.909 Unspecified asthma, uncomplicated; F90.9 Attention-deficit hyperactivity disorder, unspecified type; Z88.8 Allergy status to other drugs, medicaments and biological substances; Z79.899 Other long term (current) drug therapy; Z88.1 Allergy status to other antibiotic agents
CPT/HCPCS: 99282; 99283

== ENCOUNTER 2019-01-10 14:24 | Emergency (ER) | payer MEDICARE, MEDICAID ==
--- NOTE | 2019-01-10 15:03 | EDM.PDOC ---
ED HPI GENERAL MEDICAL PROBLEM - General Chief Complaint: Flank Pain Stated Complaint: L SIDE BACK PAIN Time Seen by Provider: 01/10/19 14:29 Source of Information: Reports: Patient History Limitations: Reports: No Limitations - History of Present Illness INITIAL COMMENTS - FREE TEXT/NARRATIVE: 43 y.o.w.m with frequent visits to his ED for various reason, came to the ED due to left flank pain, sudden onset, yesterday. No trauma. Pt has a H/O Kidney stone. No Dysuria, no N/V/D, no SOB or any other acute med issues. Pt says, he eats a lot of cheese. He take HCTZ as well to control his BP. He is on potassium , did not take his meds for a while. BP 159/94 RR 20 Pulse ox 99% on RA Temp 36.9 Pulse 74 Onset Date: 01/09/19 Onset Time: 09:00 Duration: Intermittent Location: Reports: Back (left flank) Quality: Reports: Ache, Burning, Dull Severity: Moderate Improves with: Reports: None Worsens with: Reports: None Associated Symptoms: Reports: No Other Symptoms L flank radiating into L lower abdomen Pain Score (Numeric/FACES): 6 - Related Data Allergies Allergy/AdvReac Type Severity Reaction Status Date / Time amoxicillin Allergy Rash Verified 01/10/19 14:35 Penicillins Allergy Rash Verified 01/10/19 14:35 povidone-iodine Allergy Rash Verified 01/10/19 14:35 [From Betadine] soap [From Betadine] Allergy Rash Verified 01/10/19 14:35 peanut butter Allergy Stomach Uncoded 01/10/19 14:35 Upset Home Meds: Home Meds Citalopram Hydrobromide [Celexa] 30 mg PO DAILY 03/05/16 [History] clonazePAM [Klonopin] 0.5 mg PO BID PRN 03/05/16 [History] Hydrochlorothiazide 25 mg PO BID 06/06/16 [History] Albuterol [Ventolin HFA] 2 puff INH Q4H PRN 03/30/18 [History] Ibuprofen [Advil] 800 mg PO ASDIRECTED 03/30/18 [History] Past Medical History - Past Health History Medical/Surgical History: Denies Medical/Surgical History HEENT History: Reports: Otitis Media Cardiovascular History: Reports: Hypertension Respiratory History: Reports: Asthma Gastrointestinal History: Reports: GERD, Other (See Below) Other Gastrointestinal History: Lactose intolerance. Chronic left lower quad pain. Genitourinary History: Reports: Renal Calculus Musculoskeletal History: Reports: Arthritis, Back Pain, Chronic, Fracture, Osteoarthritis, Other (See Below) Other Musculoskeletal History: jaw problems, possible TMJ. 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 Psychiatric History: Reports: ADHD, Anxiety, Bipolar, Depression, Panic Attack, Psych Hospitalization(s), PTSD, Suicide Attempt Other Psychiatric History: paranoia Endocrine/Metabolic History: Reports: Obesity/BMI 30+ Hematologic History: Reports: Blood Transfusion(s) Dermatologic History: Reports: Eczema - Infectious Disease History Infectious Disease History: Reports: Chicken Pox, Shingles - Past Surgical History Head Surgeries/Procedures: Reports: None GI Surgical History: Reports: Colonoscopy, Small Bowel, Other (See Below) Other GI Surgeries/Procedures: NEC. States he had intestinal surgery as a , had colostomy as . Male Surgical History: Reports: None Neurological Surgical History: Reports: None Oncologic Surgical History: Reports: None Social & Family History - Family History Family Medical History: Noncontributory - Tobacco Use Smoking Status *Q: Former Smoker Years of Tobacco use: 26 Used Tobacco, but Quit: No Tobacco Use Comment: Vapes daily - Caffeine Use Caffeine Use: Reports: Coffee, Soda, Tea - Recreational Drug Use Recreational Drug Use: No ED ROS GENERAL - Review of Systems Review Of Systems: See Below Constitutional: Reports: No Symptoms HEENT: Reports: No Symptoms Respiratory: Reports: No Symptoms Cardiovascular: Reports: No Symptoms Endocrine: Reports: No Symptoms GI/Abdominal: Reports: No Symptoms : Reports: Flank Pain (left flank pain) Musculoskeletal: Reports: No Symptoms Skin: Reports: No Symptoms Neurological: Reports: No Symptoms Psychiatric: Reports: No Symptoms Hematologic/Lymphatic: Reports: No Symptoms Immunologic: Reports: No Symptoms ED EXAM, RENAL/ - Physical Exam Exam: See Below Exam Limited By: No Limitations General Appearance: WD/WN Eye Exam: Bilateral Eye: Normal Inspection Ears: Normal External Exam, Normal Canal Nose: Normal Inspection Throat/Mouth: Normal Lips, Normal Voice, No Airway Compromise, Other (poor dentition) Head: Atraumatic, Normocephalic Neck: Normal Inspection, Supple, Non-Tender Respiratory/Chest: No Respiratory Distress, Lungs Clear, Normal Breath Sounds, No Accessory Muscle Use, Chest Non-Tender Cardiovascular: Normal Peripheral Pulses, Regular Rate, Rhythm, No Edema, No Gallop, No JVD, No Murmur, No Rub GI/Abdominal: Normal Bowel Sounds, Soft, Non-Tender, No Organomegaly, No Distention, No Abnormal Bruit, No Mass, Pelvis Stable (Male) Exam: Deferred Rectal (Males) Exam: Deferred Back Exam: CVA Tenderness (L) Extremities: Normal Inspection, Normal Range of Motion, Non-Tender, No Pedal Edema, Normal Capillary Refill Neurological: Alert, Oriented, CN II-XII Intact, Normal Cognition, Normal Gait, Normal Reflexes, No Motor/Sensory Deficits Psychiatric: Normal Affect, Normal Mood Skin Exam: Warm, Dry, Intact, Tattoo(s) (upper extremities) Lymphatic: No Adenopathy Course - Vital Signs Text/Narrative:: 43 y.o.w.m with frequent visits to his ED for various reason, came to the ED due to left flank pain, sudden onset, yesterday. No trauma. Pt has a H/O Kidney stone. No Dysuria, no N/V/D, no SOB or any other acute med issues. Pt says, he eats a lot of cheese. He take HCTZ as well to control his BP. He is on potassium , did not take his meds for a while. BP 159/94 RR 20 Pulse ox 99% on RA Temp 36.9 Pulse 74 PE: WNWD W M with left flank pain. Labs: CBC, BMP nl K was 2.9 and his Ca was 11.2, UDS/UA were neg Impression: Hypercalcemia (DDx Dehydration etc), hypokalemia (on HCTZ). HTN, Dehydration. Tx: Toradol, K 40meq. Pt refused IVs, says he will drink 2 liters of water today. Reexam: pain subsided, pt was feeling better Plan: D/C with instructions Last Recorded V/S: Last Vital Signs Temp 36.3 C 01/10/19 14:29 Pulse 81 01/10/19 15:34 Resp 16 01/10/19 15:34 BP 139/90 01/10/19 15:34 Pulse Ox 99 01/10/19 15:34 - Orders/Labs/Meds Labs: Laboratory Tests 01/10/19 01/10/19 01/10/19 Range/Units 14:40 14:40 15:10 WBC 5.5 (4.5-12.0) X10-3/uL RBC 5.20 (4.30-5.75) x10(6)uL Hgb 15.8 (13.5-17.8) g/dL Hct 45.0 (30.0-51.3) % MCV 86.6 (80-96) fL MCH 30.4 (27.7-33.6) pg MCHC 35.0 (32.2-35.4) g/dL RDW 11.9 (11.5-15.5) % Plt Count 178 (125-369) X10(3)uL MPV 8.2 (7.4-10.4) fL Neut % (Auto) 72.7 (46-82) % Lymph % (Auto) 19.0 (13-37) % Karnes % (Auto) 6.4 (4-12) % Eos % (Auto) 2 (1.0-5.0) % Baso % (Auto) 0 (0-2) % Neut # (Auto) 4.0 (1.6-8.3) # Lymph # (Auto) 1.0 (0.6-5.0) # Karnes # (Auto) 0.4 (0.0-1.3) # Eos # (Auto) 0.1 (0.0-0.8) # Baso # (Auto) 0.0 (0.0-0.2) # Sodium (135-145) mmol/L Potassium (3.5-5.3) mmol/L Chloride (100-110) mmol/L Carbon Dioxide (21-32) mmol/L BUN (7-18) mg/dL Creatinine (0.70-1.30) mg/dL Est Cr Clr Drug Dosing mL/min Estimated GFR (MDRD) (>60) BUN/Creatinine Ratio (9-20) Glucose (80-116) mg/dL Calcium (8.6-10.2) mg/dL Urine Color Yellow (YELLOW) Urine Appearance Clear (CLEAR) Urine pH 6.0 (5.0-6.5) Ur Specific [place] 1.020 (1.010-1.025) Urine Protein Negative (NEGATIVE) mg/dL Urine Glucose (UA) Normal (NORMAL) mg/dL Urine Ketones Negative (NEGATIVE) mg/dL Urine Occult Blood Trace (NEGATIVE) Urine Nitrite Negative (NEGATIVE) Urine Bilirubin Small H (NEGATIVE) Urine Urobilinogen Normal (NEGATIVE) mg/dL Ur Leukocyte Esterase Negative (NEGATIVE) Urine RBC 0-5 (0-5) Urine WBC 0-5 (0-5) Ur Squamous Epith Cells Rare (NS,R,O) Urine Bacteria Occasional H (NS) Urine Opiates Screen Negative (NEGATIVE) Ur Oxycodone Screen Negative (NEGATIVE) Ur Propoxyphene Screen Negative (NEGATIVE) Ur Barbituates Screen Negative (NEGATIVE) Ur Tricyclics Screen Negative (NEGATIVE) Ur Phencyclidine Scrn Negative (NEGATIVE) Ur Amphetamine Screen Negative (NEGATIVE) Urine MDMA Screen Negative (NEGATIVE) U Benzodiazepines Scrn Negative (NEGATIVE) U Cocaine Metab Screen Negative (NEGATIVE) U Marijuana (THC) Screen Negative (NEGATIVE) 01/10/19 Range/Units 15:10 WBC (4.5-12.0) X10-3/uL RBC (4.30-5.75) x10(6)uL Hgb (13.5-17.8) g/dL Hct (30.0-51.3) % MCV (80-96) fL MCH (27.7-33.6) pg MCHC (32.2-35.4) g/dL RDW (11.5-15.5) % Plt Count (125-369) X10(3)uL MPV (7.4-10.4) fL Neut % (Auto) (46-82) % Lymph % (Auto) (13-37) % Karnes % (Auto) (4-12) % Eos % (Auto) (1.0-5.0) % Baso % (Auto) (0-2) % Neut # (Auto) (1.6-8.3) # Lymph # (Auto) (0.6-5.0) # Karnes # (Auto) (0.0-1.3) # Eos # (Auto) (0.0-0.8) # Baso # (Auto) (0.0-0.2) # Sodium 139 (135-145) mmol/L Potassium 2.9 L (3.5-5.3) mmol/L Chloride 101 (100-110) mmol/L Carbon Dioxide 29 (21-32) mmol/L BUN 16 (7-18) mg/dL Creatinine 1.2 (0.70-1.30) mg/dL Est Cr Clr Drug Dosing 77.58 mL/min Estimated GFR (MDRD) > 60 (>60) BUN/Creatinine Ratio 13.3 (9-20) Glucose 137 H (80-116) mg/dL Calcium 11.2 H (8.6-10.2) mg/dL Urine Color (YELLOW) Urine Appearance (CLEAR) Urine pH (5.0-6.5) Ur Specific [place] (1.010-1.025) Urine Protein (NEGATIVE) mg/dL Urine Glucose (UA) (NORMAL) mg/dL Urine Ketones (NEGATIVE) mg/dL Urine Occult Blood (NEGATIVE) Urine Nitrite (NEGATIVE) Urine Bilirubin (NEGATIVE) Urine Urobilinogen (NEGATIVE) mg/dL Ur Leukocyte Esterase (NEGATIVE) Urine RBC (0-5) Urine WBC (0-5) Ur Squamous Epith Cells (NS,R,O) Urine Bacteria (NS) Urine Opiates Screen (NEGATIVE) Ur Oxycodone Screen (NEGATIVE) Ur Propoxyphene Screen (NEGATIVE) Ur Barbituates Screen (NEGATIVE) Ur Tricyclics Screen (NEGATIVE) Ur Phencyclidine Scrn (NEGATIVE) Ur Amphetamine Screen (NEGATIVE) Urine MDMA Screen (NEGATIVE) U Benzodiazepines Scrn (NEGATIVE) U Cocaine Metab Screen (NEGATIVE) U Marijuana (THC) Screen (NEGATIVE) Meds: Medications Discontinued Medications Generic Name Dose Route Start Last Admin Trade Name Freq PRN Reason Stop Dose Admin Ketorolac Tromethamine 60 mg 01/10/19 14:56 01/10/19 15:46 Toradol IM 01/10/19 14:57 Not Given ONETIME ONE Potassium Chloride 40 meq 01/10/19 15:37 01/10/19 15:44 Klor-Con M20 PO 01/10/19 15:38 40 meq ONETIME ONE Administration Departure - Departure Time of Disposition: 15:43 Disposition: Home, Self-Care 01 Condition: Good Clinical Impression: Hypokalemia, Hypercalcemia, Dehydration HTN (hypertension) Qualifiers: Hypertension type: essential hypertension Qualified Code(s): I10 - Essential ( primary) hypertension - Discharge Information Instructions: Hypokalemia Referrals: Eliel Flores MD [Primary Care Provider] - Forms: ED Department Discharge Additional Instructions: Please increase water intake, one gallon of water a day, please take your potassium as recommended. please get your potassium and calcium level checked this Tuesday. Please come back if your symptoms get worse acutely.
[2019-01-10] MEDS: Potassium Chloride 20 MEQ Tab.ER PO ONE (15:44)
[2019-01-10] MEDS: Ketorolac 60 MG/2 ML SDV IM ONE (15:46)
[2019-01-10 16:03] VITALS: BP 139/90
== END 2019-01-10 15:50 | disposition home or self-care (01) ==
LOC: FB.ED 14:24
DX: E83.52 Hypercalcemia (principal); E87.6 Hypokalemia; E86.0 Dehydration; I10 Essential (primary) hypertension; J45.909 Unspecified asthma, uncomplicated; K21.9 Gastro-esophageal reflux disease without esophagitis; F31.9 Bipolar disorder, unspecified; F41.9 Anxiety disorder, unspecified; Z87.891 Personal history of nicotine dependence; Z79.899 Other long term (current) drug therapy; Z91.010 Allergy to peanuts; Z88.8 Allergy status to other drugs, medicaments and biological substances; Z88.0 Allergy status to penicillin; Z88.1 Allergy status to other antibiotic agents
CPT/HCPCS: 36415; 80048; 80305; 81001; 85025; 99284; A9270

== ENCOUNTER 2019-01-12 20:02 | Emergency (ER) | payer MEDICARE, MEDICAID | END 2019-01-12 20:25 | disposition left against medical advice (07) | LOC: FB.ED 20:02 | DX: Z53.21 Procedure and treatment not carried out due to patient leaving prior to being seen by health care provider (principal) ==

== ENCOUNTER 2019-01-23 19:06 | Emergency (ER) | payer MEDICARE, MEDICAID ==
--- NOTE | 2019-01-23 20:16 | EDM.PDOC ---
ED HPI GENERAL MEDICAL PROBLEM - General Chief Complaint: General Stated Complaint: ANXIETY Time Seen by Provider: 01/23/19 19:45 Source of Information: Reports: Patient, Old Records History Limitations: Reports: No Limitations - History of Present Illness INITIAL COMMENTS - FREE TEXT/NARRATIVE: Hubert comes into [facility] for information regarding recent lab reports that indicate an elevated Ca level, and concerns that he may have metastatic cancer. Levels obtained January 10 noted Ca 11.2 mg, and January 23 11.0. He was reading online that metastatic cancer can cause elevated levels, and has been ruminating about this prospect this evening. He is health hx is reviewed including ZEE. He is on anxiolytic psychotropic meds for managment. - Related Data Allergies Allergy/AdvReac Type Severity Reaction Status Date / Time amoxicillin Allergy Rash Verified 01/10/19 14:35 Penicillins Allergy Rash Verified 01/10/19 14:35 povidone-iodine Allergy Rash Verified 01/10/19 14:35 [From Betadine] soap [From Betadine] Allergy Rash Verified 01/10/19 14:35 peanut butter Allergy Stomach Uncoded 01/10/19 14:35 Upset Home Meds: Home Meds Citalopram Hydrobromide [Celexa] 30 mg PO DAILY 03/05/16 [History] clonazePAM [Klonopin] 0.5 mg PO BID PRN 03/05/16 [History] Hydrochlorothiazide 25 mg PO BID 06/06/16 [History] Albuterol [Ventolin HFA] 2 puff INH Q4H PRN 03/30/18 [History] Ibuprofen [Advil] 800 mg PO ASDIRECTED 03/30/18 [History] Past Medical History - Past Health History Medical/Surgical History: Denies Medical/Surgical History HEENT History: Reports: Otitis Media Cardiovascular History: Reports: Hypertension Respiratory History: Reports: Asthma Gastrointestinal History: Reports: GERD, Other (See Below) Other Gastrointestinal History: Lactose intolerance. Chronic left lower quad pain. Genitourinary History: Reports: Renal Calculus Musculoskeletal History: Reports: Arthritis, Back Pain, Chronic, Fracture, Osteoarthritis, Other (See Below) Other Musculoskeletal History: jaw problems, possible TMJ. 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 Psychiatric History: Reports: ADHD, Anxiety, Bipolar, Depression, Panic Attack, Psych Hospitalization(s), PTSD, Suicide Attempt Other Psychiatric History: paranoia Endocrine/Metabolic History: Reports: Obesity/BMI 30+ Hematologic History: Reports: Blood Transfusion(s) Dermatologic History: Reports: Eczema - Infectious Disease History Infectious Disease History: Reports: Chicken Pox, Shingles - Past Surgical History Head Surgeries/Procedures: Reports: None GI Surgical History: Reports: Colonoscopy, Small Bowel, Other (See Below) Other GI Surgeries/Procedures: NEC. States he had intestinal surgery as a , had colostomy as . Male Surgical History: Reports: None Neurological Surgical History: Reports: None Oncologic Surgical History: Reports: None Social & Family History - Family History Family Medical History: Noncontributory - Caffeine Use Caffeine Use: Reports: Coffee, Soda, Tea ED ROS GENERAL - Review of Systems Review Of Systems: ROS reveals no pertinent complaints other than HPI. ED EXAM, GENERAL - Physical Exam Exam: See Below Exam Limited By: No Limitations General Appearance: Alert, WD/WN, Anxious Head: Normocephalic Neck: Normal Inspection Respiratory/Chest: Lungs Clear Cardiovascular: Regular Rate, Rhythm GI/Abdominal: Soft, Non-Tender, No Organomegaly (Male) Exam: Deferred Rectal (Males) Exam: Deferred Back Exam: Normal Inspection Extremities: Normal Inspection Neurological: Alert, Oriented, CN II-XII Intact, Normal Cognition, Normal Gait, No Motor/Sensory Deficits Psychiatric: Normal Affect, Anxious Skin Exam: Warm, Dry, Intact, Normal Color, No Rash Lymphatic: No Adenopathy Course - Vital Signs Text/Narrative:: I reviewed his lab results available to me, and suggested a call to the PCP nurse tomorrow to obtain orders for a serum ionized Ca level for clarity given current borderline findings, and patient seemed relieved. A note was sent home with him regarding lab request. Departure - Departure Time of Disposition: 20:05 Disposition: Home, Self-Care 01 Condition: Fair Clinical Impression: Anxiety - Discharge Information *PRESCRIPTION DRUG MONITORING PROGRAM REVIEWED*: Not Applicable *COPY OF PRESCRIPTION DRUG MONITORING REPORT IN PATIENT VONDA: Not Applicable Instructions: Calcium Test Referrals: Eliel Flores MD [Primary Care Provider] - Forms: ED Department Discharge Additional Instructions: Call the clinic tomorrow an inquire on the Ionized calcium test. - Problem List & Annotations (1) Anxiety SNOMED Code(s): 45183668 Code(s): F41.9 - ANXIETY DISORDER, UNSPECIFIED Status: Acute Current Visit: Yes Annotation/Comment:: Continue anxiolytic meds, and follow up with PCP tomorrow regarding se ionized Ca level. - Problem List Review Problem List Initiated/Reviewed/Updated: Yes - Assessment/Plan Plan: Follow up with PCP.
[2019-01-23 23:25] VITALS: BP 176/101; PULSE 81
== END 2019-01-23 20:05 | disposition home or self-care (01) ==
LOC: FB.ED 19:06
DX: F41.9 Anxiety disorder, unspecified (principal); I10 Essential (primary) hypertension; J45.909 Unspecified asthma, uncomplicated; F32.9 Major depressive disorder, single episode, unspecified; Z88.0 Allergy status to penicillin; Z88.1 Allergy status to other antibiotic agents; Z91.048 Other nonmedicinal substance allergy status; Z91.018 Allergy to other foods; Z79.899 Other long term (current) drug therapy
CPT/HCPCS: 99282; 99283

== ENCOUNTER 2019-02-03 06:40 | Emergency (ER) | payer MEDICARE, MEDICAID ==
--- NOTE | 2019-02-03 07:20 | EDM.PDOC ---
ED HPI GENERAL MEDICAL PROBLEM - General Chief Complaint: Respiratory Problem Stated Complaint: sob Time Seen by Provider: 02/03/19 07:00 Source of Information: Reports: Patient History Limitations: Reports: No Limitations - History of Present Illness INITIAL COMMENTS - FREE TEXT/NARRATIVE: 43 y.o.w.m with frequent visits to this ED came to the ED because he felt a lump at his left upper back for severe months. He noticed pain at his left should when doing push ups. He is using Vapor as well, which he needs to "Calm down" No Trauma, no N/V/D or any other acute med issues. BP to take was refused by patient, Pulse ox 96% on RA RR 18 Pulse 69 Onset Date: 01/31/19 Onset Time: 09:00 Duration: Intermittent Location: Reports: Chest Quality: Reports: Dull Severity: Mild Improves with: Reports: Rest Worsens with: Reports: Movement Context: Reports: Other (lipoma left upper back) Associated Symptoms: Reports: No Other Symptoms - Related Data Allergies Allergy/AdvReac Type Severity Reaction Status Date / Time amoxicillin Allergy Rash Verified 02/03/19 07:32 Penicillins Allergy Rash Verified 02/03/19 07:32 povidone-iodine Allergy Rash Verified 02/03/19 07:32 [From Betadine] soap [From Betadine] Allergy Rash Verified 02/03/19 07:32 peanut butter Allergy Stomach Uncoded 02/03/19 07:32 Upset Home Meds: Home Meds Citalopram Hydrobromide [Celexa] 30 mg PO DAILY 03/05/16 [History] clonazePAM [Klonopin] 0.5 mg PO BID PRN 03/05/16 [History] Hydrochlorothiazide 25 mg PO BID 06/06/16 [History] Albuterol [Ventolin HFA] 2 puff INH Q4H PRN 03/30/18 [History] Ibuprofen [Advil] 800 mg PO ASDIRECTED 03/30/18 [History] Past Medical History - Past Health History Medical/Surgical History: Denies Medical/Surgical History HEENT History: Reports: Otitis Media Cardiovascular History: Reports: Hypertension Respiratory History: Reports: Asthma Gastrointestinal History: Reports: GERD, Other (See Below) Other Gastrointestinal History: Lactose intolerance. Chronic left lower quad pain. Genitourinary History: Reports: Renal Calculus Musculoskeletal History: Reports: Arthritis, Back Pain, Chronic, Fracture, Osteoarthritis, Other (See Below) Other Musculoskeletal History: jaw problems, possible TMJ. 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 Psychiatric History: Reports: ADHD, Anxiety, Bipolar, Depression, Panic Attack, Psych Hospitalization(s), PTSD, Suicide Attempt Other Psychiatric History: paranoia Endocrine/Metabolic History: Reports: Obesity/BMI 30+ Hematologic History: Reports: Blood Transfusion(s) Dermatologic History: Reports: Eczema - Infectious Disease History Infectious Disease History: Reports: Chicken Pox, Shingles - Past Surgical History Head Surgeries/Procedures: Reports: None GI Surgical History: Reports: Colonoscopy, Small Bowel, Other (See Below) Other GI Surgeries/Procedures: NEC. States he had intestinal surgery as a , had colostomy as infant. Male Surgical History: Reports: None Neurological Surgical History: Reports: None Oncologic Surgical History: Reports: None Social & Family History - Family History Family Medical History: Noncontributory - Caffeine Use Caffeine Use: Reports: Coffee, Soda, Tea ED ROS GENERAL - Review of Systems Review Of Systems: See Below Constitutional: Reports: No Symptoms HEENT: Reports: No Symptoms Respiratory: Reports: No Symptoms Cardiovascular: Reports: No Symptoms Endocrine: Reports: No Symptoms GI/Abdominal: Reports: No Symptoms : Reports: No Symptoms Musculoskeletal: Reports: No Symptoms Skin: Reports: Lumps (lipoma left upper back) Neurological: Reports: No Symptoms Psychiatric: Reports: No Symptoms Hematologic/Lymphatic: Reports: No Symptoms Immunologic: Reports: No Symptoms ED EXAM, GENERAL - Physical Exam Exam: See Below Exam Limited By: No Limitations General Appearance: Alert, WD/WN Eye Exam: Bilateral Eye: Abnormal EOM Ears: Normal External Exam Ear Exam: Bilateral Ear: Auricle Normal Nose: Normal Inspection, Normal Mucosa Throat/Mouth: Normal Inspection, Normal Lips, Normal Voice, No Airway Compromise Head: Atraumatic, Normocephalic Neck: Normal Inspection, Supple, Non-Tender Respiratory/Chest: No Respiratory Distress, Lungs Clear Cardiovascular: Normal Peripheral Pulses, Regular Rate, Rhythm, No Edema Peripheral Pulses: 2+: Carotid (L) GI/Abdominal: Normal Bowel Sounds (Male) Exam: Deferred Rectal (Males) Exam: Deferred Back Exam: Normal Inspection, Full Range of Motion Extremities: Normal Inspection, Normal Range of Motion, Non-Tender Neurological: Alert, Oriented, CN II-XII Intact, Normal Cognition, Normal Gait Psychiatric: Normal Affect, Normal Mood Skin Exam: Warm, Dry, Normal Color, No Rash, Other (lipoma left upper back) Lymphatic: No Adenopathy Course - Vital Signs Text/Narrative:: 43 y.o.w.m with frequent visits to this ED came to the ED because he felt a lump at his left upper back for severe months. He noticed pain at his left should when doing push ups. He is using Vapor as well, which he needs to "Calm down" No Trauma, no N/V/D or any other acute med issues. BP to take was refused by patient, Pulse ox 96% on RA RR 18 Pulse 69 PE: WNWD W M in NAD Labs/Imaging: Not indicated Impression: Lipoma left upper back Tx: None Reexam: Pt stated he want to make sure his lungs a ok, refused any Tx Plan: D/C with instructions Last Recorded V/S: Last Vital Signs Temp Pulse 69 02/03/19 07:15 Resp 18 02/03/19 07:15 BP Pulse Ox 96 02/03/19 07:15 Departure - Departure Time of Disposition: 07:33 Disposition: Home, Self-Care 01 Condition: Good Clinical Impression: Lipoma of back - Discharge Information Instructions: Shortness of Breath, Adult, [id number], Lipoma Referrals: Eliel Flores MD [Primary Care Provider] - Forms: ED Department Discharge Additional Instructions: Please f/u with your PMD, please cont your current meds, please come back if your symptoms get worse acutely
[2019-02-03 07:35] VITALS: PULSE 69
== END 2019-02-03 07:40 | disposition home or self-care (01) ==
LOC: FB.ED 06:40
DX: D17.1 Benign lipomatous neoplasm of skin and subcutaneous tissue of trunk (principal); I10 Essential (primary) hypertension; J45.909 Unspecified asthma, uncomplicated; F41.9 Anxiety disorder, unspecified; F32.9 Major depressive disorder, single episode, unspecified; Z88.0 Allergy status to penicillin; Z88.1 Allergy status to other antibiotic agents; Z88.8 Allergy status to other drugs, medicaments and biological substances; Z91.048 Other nonmedicinal substance allergy status; Z91.010 Allergy to peanuts; Z79.899 Other long term (current) drug therapy
CPT/HCPCS: 99282; 99284

== ENCOUNTER 2019-02-13 18:05 | Emergency (ER) | payer MEDICARE, MEDICAID ==
[2019-02-13 18:32] VITALS: BP 161/95; PULSE 71
--- NOTE | 2019-02-14 04:37 | ER ---
"DATE SEEN: 02/13/2019 CHIEF COMPLAINT: Cough. HISTORY OF PRESENT ILLNESS: A 43-year-old complaining of cough for 2 hours and almost choking sensation. He was vaping and drinking Coke product when this started. He is worried about mysterious lung illness from vaping. He has been vaping for four months in an attempt to quit tobacco abuse. Hubert has a history of multiple ER visits with anxiety, PTSD, various functional symptoms. Tonight, he has no fatigue, diarrhea, nausea, vomiting, or fever. REVIEW OF SYSTEMS: All other systems were noncontributory. MEDICATIONS: See Q[facility] | [facility] [employer]. ALLERGIES: Reviewed. PHYSICAL EXAMINATION: VITAL SIGNS: Blood pressure 161/95, pulse is 71, temp 97.6, and oxygenation is 100% room air. EARS, NOSE, AND THROAT: Negative. HEAD: Atraumatic. CHEST: Clear. CARDIOVASCULAR: Normal. MENTAL STATUS: Alert. Answers questions well. IMAGING: Chest x-ray which I reviewed was negative. IMPRESSION: 1. Cough. 2. Vaping. PLAN: I discussed the taping cessation. I offered him systemic steroids, he declined, and he will see his PCP tomorrow. He left in satisfactory condition. Most of the history was obtained in collaboration with my medical student, Corwin. /[id number] ALEXA/COLTON"
--- NOTE | 2019-02-14 10:44 | CR ---
INDICATION: Cough, shortness of breath. CHEST: PA and lateral views of the chest, 02/13/19 - no comparisons. The heart and mediastinum were unremarkable. Dextroconvex scoliosis of lower thoracic spine suggested. No consolidating pneumonia or effusion was seen. However, there is bronchial wall cuffing at the lower lung waller of mild to moderate degree, which may be on the basis of active peribronchial disease and should be correlated clinically. MTDD
== END 2019-02-13 20:13 | disposition home or self-care (01) ==
LOC: FB.ED 18:05
DX: R05 Cough (principal); I10 Essential (primary) hypertension; F17.290 Nicotine dependence, other tobacco product, uncomplicated; E66.9 Obesity, unspecified; M19.90 Unspecified osteoarthritis, unspecified site
CPT/HCPCS: 71046; 99285-25

== ENCOUNTER 2019-05-19 20:24 | Emergency (ER) | payer MEDICARE, MEDICAID ==
[2019-05-19] MEDS ORDERED: ClonazePAM 0.5 MG Tab PO ONE ×3 (20:25→20:49)
--- NOTE | 2019-05-19 20:37 | EDM.PDOCBH ---
ED HPI GENERAL MEDICAL PROBLEM - General Stated Complaint: anxiety attack Time Seen by Provider: 05/19/19 20:30 Source of Information: Reports: Patient History Limitations: Reports: No Limitations - History of Present Illness INITIAL COMMENTS - FREE TEXT/NARRATIVE: Patient presented to the ED because of anxiety attack. He ran out of his klonopin 0.5 mg BID and now c/o facial numbness and tingling,dyspnea and feeling that everything is out of control. He denies any suicidal or homicidal ideation. - Related Data Allergies Allergy/AdvReac Type Severity Reaction Status Date / Time amoxicillin Allergy Rash Verified 02/03/19 07:32 Penicillins Allergy Rash Verified 02/03/19 07:32 povidone-iodine Allergy Rash Verified 02/03/19 07:32 [From Betadine] soap [From Betadine] Allergy Rash Verified 02/03/19 07:32 peanut butter Allergy Stomach Uncoded 02/03/19 07:32 Upset Home Meds: Home Meds Citalopram Hydrobromide [Celexa] 30 mg PO DAILY 03/05/16 [History] clonazePAM [Klonopin] 0.5 mg PO BID PRN 03/05/16 [History] Hydrochlorothiazide 25 mg PO BID 06/06/16 [History] Albuterol [Ventolin HFA] 2 puff INH Q4H PRN 03/30/18 [History] Ibuprofen [Advil] 800 mg PO ASDIRECTED 03/30/18 [History] clonazePAM [Klonopin] 0.5 mg PO BID PRN #6 tablet 05/19/19 [Rx] Past Medical History - Past Health History Medical/Surgical History: Denies Medical/Surgical History HEENT History: Reports: Otitis Media Cardiovascular History: Reports: Hypertension Respiratory History: Reports: Asthma Gastrointestinal History: Reports: GERD, Other (See Below) Other Gastrointestinal History: Lactose intolerance. Chronic left lower quad pain. Genitourinary History: Reports: Renal Calculus Musculoskeletal History: Reports: Arthritis, Back Pain, Chronic, Fracture, Osteoarthritis, Other (See Below) Other Musculoskeletal History: jaw problems, possible TMJ. 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 Psychiatric History: Reports: ADHD, Anxiety, Bipolar, Depression, Panic Attack, Psych Hospitalization(s), PTSD, Suicide Attempt Other Psychiatric History: paranoia Endocrine/Metabolic History: Reports: Obesity/BMI 30+ Hematologic History: Reports: Blood Transfusion(s) Dermatologic History: Reports: Eczema - Infectious Disease History Infectious Disease History: Reports: Chicken Pox, Shingles - Past Surgical History Head Surgeries/Procedures: Reports: None GI Surgical History: Reports: Colonoscopy, Small Bowel, Other (See Below) Other GI Surgeries/Procedures: NEC. States he had intestinal surgery as a , had colostomy as . Male Surgical History: Reports: None Neurological Surgical History: Reports: None Oncologic Surgical History: Reports: None Social & Family History - Family History Family Medical History: Noncontributory - Caffeine Use Caffeine Use: Reports: Coffee, Energy Drinks, Soda ED ROS GENERAL - Review of Systems Review Of Systems: See Below Constitutional: Reports: No Symptoms HEENT: Reports: No Symptoms Respiratory: Reports: No Symptoms Cardiovascular: Reports: No Symptoms Endocrine: Reports: No Symptoms GI/Abdominal: Reports: No Symptoms : Reports: No Symptoms Musculoskeletal: Reports: No Symptoms Skin: Reports: No Symptoms Neurological: Reports: No Symptoms Psychiatric: Reports: Anxiety Hematologic/Lymphatic: Reports: No Symptoms Immunologic: Reports: No Symptoms ED EXAM, BEHAVIORAL HEALTH - Physical Exam Exam: See Below Exam Limited By: No Limitations General Appearance: Alert, No Apparent Distress Eye Exam: Bilateral Eye: PERRL Ears: Normal External Exam, Normal Canal, Hearing Grossly Normal Nose: Normal Inspection, Normal Mucosa Throat/Mouth: Normal Inspection, Normal Teeth Head: Atraumatic, Normocephalic Neck: Normal Inspection, Supple, Non-Tender Respiratory/Chest: No Respiratory Distress, Lungs Clear Cardiovascular: Normal Peripheral Pulses, Regular Rate, Rhythm, No Edema, No Gallop, No JVD, No Murmur, No Rub GI/Abdominal: Normal Bowel Sounds Back Exam: Normal Inspection Extremities: Normal Inspection, Normal Range of Motion COURSE, BEHAVIORAL HEALTH COMP - Course Vital Signs: klonopin 0.5 mg po x1 Orders, Labs, Meds: Medications Discontinued Medications Generic Name Dose Route Start Last Admin Trade Name Freq PRN Reason Stop Dose Admin Clonazepam 0.5 mg 05/19/19 20:38 Klonopin PO 05/19/19 20:39 ONETIME ONE Departure - Departure Time of Disposition: 20:35 Disposition: Home, W Home Health Agency 06 Condition: Good Clinical Impression: Anxiety attack - Discharge Information Prescriptions: clonazePAM [Klonopin] 0.5 mg PO BID PRN #6 tablet PRN Reason: Anxiety Instructions: Panic Attack, [id number] Referrals: Eliel Flores MD [Primary Care Provider] - Additional Instructions: please read discharge instructions on panic attack take klonopin 0.5 mg twice daily as needed follow up with your doctor this week Sepsis Event Note - Focused Exam Date Exam was Performed: 05/19/19 Time Exam was Performed: 22:27
== END 2019-05-19 21:00 | disposition home health service (06) ==
LOC: FB.ED 20:24
DX: F41.9 Anxiety disorder, unspecified (principal); I10 Essential (primary) hypertension; K21.9 Gastro-esophageal reflux disease without esophagitis; F31.9 Bipolar disorder, unspecified; E66.9 Obesity, unspecified; Z79.899 Other long term (current) drug therapy; Z88.0 Allergy status to penicillin; Z88.1 Allergy status to other antibiotic agents; Z91.09 Other allergy status, other than to drugs and biological substances; Z91.010 Allergy to peanuts
CPT/HCPCS: 99284; A9270; 99283

== ENCOUNTER 2019-12-04 21:44 | Emergency (ER) | payer MEDICARE, MEDICAID ==
--- NOTE | 2019-12-04 22:09 | EDM.PDOC ---
ED HPI GENERAL MEDICAL PROBLEM - General Stated Complaint: WHITE LEISONS ON TONGUE PER PT Time Seen by Provider: 12/04/19 22:05 Source of Information: Reports: Patient History Limitations: Reports: No Limitations - History of Present Illness INITIAL COMMENTS - FREE TEXT/NARRATIVE: Patient presented to the ED because he is very anxious. he was told by a doctor in [place] that he need to see n ENT for a biopsy of his tongue because the white patches on his tongue looks malignant. Patient denies any unexplained fever, dysphagia or any cervical adenopathy. - Related Data Allergies Allergy/AdvReac Type Severity Reaction Status Date / Time amoxicillin Allergy Rash Verified 12/04/19 23:24 Penicillins Allergy Rash Verified 12/04/19 23:24 povidone-iodine Allergy Rash Verified 12/04/19 23:24 [From Betadine] soap [From Betadine] Allergy Rash Verified 12/04/19 23:24 lactose intolerant Allergy Digestion Uncoded 12/04/19 23:23 Problems peanut butter Allergy Stomach Uncoded 12/04/19 23:23 Upset Home Meds: Home Meds Citalopram Hydrobromide [Celexa] 40 mg PO DAILY 03/05/16 [History] Hydrochlorothiazide 50 mg PO DAILY 06/06/16 [History] Albuterol [Ventolin HFA] 2 puff INH Q4H PRN 03/30/18 [History] clonazePAM [Klonopin] 0.5 mg PO BID PRN #6 tablet 05/19/19 [Rx] Omeprazole 20 mg PO DAILY #30 tablet. 12/04/19 [Rx] Past Medical History - Past Health History Medical/Surgical History: Denies Medical/Surgical History HEENT History: Reports: Otitis Media Cardiovascular History: Reports: Hypertension Respiratory History: Reports: Asthma Gastrointestinal History: Reports: GERD, Other (See Below) Other Gastrointestinal History: Lactose intolerance. Chronic left lower quad pain. Genitourinary History: Reports: Renal Calculus Musculoskeletal History: Reports: Arthritis, Back Pain, Chronic, Fracture, Osteoarthritis, Other (See Below) Other Musculoskeletal History: jaw problems, possible TMJ. 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 Psychiatric History: Reports: ADHD, Anxiety, Bipolar, Depression, Panic Attack, Psych Hospitalization(s), PTSD, Suicide Attempt Other Psychiatric History: paranoia Endocrine/Metabolic History: Reports: Obesity/BMI 30+ Hematologic History: Reports: Blood Transfusion(s) Dermatologic History: Reports: Eczema - Infectious Disease History Infectious Disease History: Reports: Chicken Pox, Shingles - Past Surgical History Head Surgeries/Procedures: Reports: None GI Surgical History: Reports: Colonoscopy, Small Bowel, Other (See Below) Other GI Surgeries/Procedures: NEC. States he had intestinal surgery as a , had colostomy as infant. Male Surgical History: Reports: None Neurological Surgical History: Reports: None Oncologic Surgical History: Reports: None Social & Family History - Family History Family Medical History: Noncontributory - Caffeine Use Caffeine Use: Reports: Coffee, Energy Drinks, Soda ED ROS GENERAL - Review of Systems Review Of Systems: See Below Constitutional: Reports: No Symptoms HEENT: Reports: No Symptoms Respiratory: Reports: No Symptoms Cardiovascular: Reports: No Symptoms Endocrine: Reports: No Symptoms GI/Abdominal: Reports: No Symptoms Musculoskeletal: Reports: No Symptoms Skin: Reports: No Symptoms Psychiatric: Reports: No Symptoms Hematologic/Lymphatic: Reports: No Symptoms ED EXAM, GENERAL - Physical Exam Exam: See Below Exam Limited By: No Limitations General Appearance: Alert, No Apparent Distress Eye Exam: Bilateral Eye: PERRL Ears: Normal External Exam, Normal Canal Nose: Normal Inspection, Normal Mucosa Throat/Mouth: Normal Inspection, Normal Lips, Normal Teeth, Other (white patches on tongue, no solid mass noted. The lingual papilae looks hypertrophied.). No: Dysphagia Head: Atraumatic, Normocephalic Neck: Normal Inspection, Supple, Non-Tender, Full Range of Motion Respiratory/Chest: No Respiratory Distress, Lungs Clear, Normal Breath Sounds Cardiovascular: Normal Peripheral Pulses, Regular Rate, Rhythm, No Edema, No Gallop GI/Abdominal: Normal Bowel Sounds, Soft, Non-Tender, No Organomegaly Extremities: Normal Inspection, Normal Range of Motion Neurological: Alert, Oriented, CN II-XII Intact, Normal Cognition Psychiatric: Anxious Skin Exam: Warm Course - Vital Signs Text/Narrative:: reassurance Last Recorded V/S: Last Vital Signs Temp 36.6 C 12/04/19 22:05 Pulse 98 12/04/19 22:05 Resp 18 12/04/19 22:05 BP 156/106 H 12/04/19 22:05 Pulse Ox 96 12/04/19 22:05 Departure - Departure Time of Disposition: 22:10 Disposition: Home, Self-Care 01 Condition: Good Clinical Impression: GERD (gastroesophageal reflux disease), Tongue papillae hypertrophy - Discharge Information Prescriptions: Omeprazole 20 mg PO DAILY #30 tablet.dr Instructions: Heartburn, [id number] Referrals: Eliel Flores MD [Primary Care Provider] - Forms: ED Department Discharge Additional Instructions: Please read discharge instructions on GERD/Acid reflux diet modification: avoid soda,caffeine,OJ,my,alcohol Omeprazole 20 mg once daily Follow up with ENT with regards to the white patches on your tongue
[2019-12-04 22:42] VITALS: BP 156/106; PULSE 98
== END 2019-12-04 22:05 | disposition home or self-care (01) ==
LOC: FB.ED 21:44
DX: K21.9 Gastro-esophageal reflux disease without esophagitis (principal); K14.3 Hypertrophy of tongue papillae; I10 Essential (primary) hypertension; F41.9 Anxiety disorder, unspecified; F31.9 Bipolar disorder, unspecified; E66.9 Obesity, unspecified; Z68.39 Body mass index [BMI] 39.0-39.9, adult; Z88.1 Allergy status to other antibiotic agents; Z88.0 Allergy status to penicillin; Z91.018 Allergy to other foods; Z91.011 Allergy to milk products; Z88.8 Allergy status to other drugs, medicaments and biological substances
CPT/HCPCS: 99283

== ENCOUNTER 2019-12-26 13:46 | Emergency (ER) | payer MEDICARE, MEDICAID ==
[2019-12-26 14:38] VITALS: BP 168/94; PULSE 76
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
== END 2019-12-26 15:00 | disposition home or self-care (01) ==
LOC: FB.ED 13:46
DX: F39 Unspecified mood [affective] disorder (principal); I10 Essential (primary) hypertension; K21.9 Gastro-esophageal reflux disease without esophagitis; J45.909 Unspecified asthma, uncomplicated; E66.9 Obesity, unspecified; F41.0 Panic disorder [episodic paroxysmal anxiety]; F31.9 Bipolar disorder, unspecified; Z88.0 Allergy status to penicillin; Z88.1 Allergy status to other antibiotic agents; Z91.010 Allergy to peanuts; Z91.09 Other allergy status, other than to drugs and biological substances
CPT/HCPCS: 99284

== ENCOUNTER 2020-01-05 19:18 | Emergency (ER) | payer MEDICARE, MEDICAID ==
--- NOTE | 2020-01-05 19:35 | EDM.PDOC ---
ED HPI GENERAL MEDICAL PROBLEM - General Stated Complaint: chest pain Time Seen by Provider: 01/05/20 19:24 Source of Information: Reports: Patient History Limitations: Reports: No Limitations - History of Present Illness INITIAL COMMENTS - FREE TEXT/NARRATIVE: 44-year-old male who reports that yesterday he drank about 10 diet Mountain Dew's and two 32 ounce diet Cokes as well as a monster energy drink and he did quite a bit of vaping with the highest nicotine containing E cigarette. This morning at about 4 AM he was awakened with a sharp and stabbing type pain in his that was worse with palpation and with movement. He reports it was quite severe and it made him feel weak all over he also felt that when he tried to get up he would "pass out" and he states that he wouldn't went back to sleep at about 5 AM. The pain had lasted during this period of time and seemed to go away after this. When he awoke this morning he was feeling weak and he has intermittently had sharp pains in his chest that are exacerbated by palpation, movement of his arm and by deep breathing. He has had some nausea but no vomiting. He has felt somewhat short of breath. No cough. No hemoptysis. No arm, neck or jaw pain. The symptoms have continued through the day and into the evening and caused him to present to the emergency department tonight. He reports that he slept much of the day. No abdominal pain. No back pain. He has had normal urine output today. No diaphoresis. He did have episodes of sharp pain while I was examining him and reports that at its worst it was an 8/10. There are no other associated signs or symptoms. There are no other modifying factors. Onset: Today (4 AM) Duration: Constant Location: Reports: Chest Quality: Reports: Sharp, Stabbing Severity: Moderate (to severe) Improves with: Reports: Rest Worsens with: Reports: Breathing (Patient), Other, Movement Context: Reports: Other (As above) Associated Symptoms: Reports: Chest Pain, Malaise, Nausea/Vomiting, Shortness of Breath, Weakness Treatments [employer]: Reports: Other (see below) (Nothing) heart Pain Score (Numeric/FACES): 8 - Related Data Allergies Allergy/AdvReac Type Severity Reaction Status Date / Time amoxicillin Allergy Rash Verified 08/22/20 19:43 Penicillins Allergy Rash Verified 01/05/20 19:43 povidone-iodine Allergy Rash Verified 01/05/20 19:43 [From Betadine] soap [From Betadine] Allergy Rash Verified 01/05/20 19:43 lactose intolerant Allergy Digestion Uncoded 12/26/19 14:13 Problems peanut butter Allergy Stomach Uncoded 12/26/19 14:13 Upset Home Meds: Home Meds Citalopram Hydrobromide [Celexa] 40 mg PO DAILY 03/05/16 [History] Hydrochlorothiazide 50 mg PO DAILY 06/06/16 [History] Albuterol [Ventolin HFA] 2 puff INH Q4H PRN 03/30/18 [History] clonazePAM [Klonopin] 0.5 mg PO BID PRN #6 tablet 05/19/19 [Rx] Potassium Chloride [K-Tab ER] 20 meq PO ASDIRECTED #33 tablet.er 01/05/20 [Rx] Potassium Gluconate [Potassium] 49.5 mg PO DAILY 01/05/20 [History] Past Medical History HEENT History: Reports: Otitis Media Cardiovascular History: Reports: Hypertension Respiratory History: Reports: Asthma Gastrointestinal History: Reports: GERD, Other (See Below) Other Gastrointestinal History: Lactose intolerance. Chronic left lower quad pain. Genitourinary History: Reports: Renal Calculus Musculoskeletal History: Reports: Arthritis, Back Pain, Chronic, Fracture, Osteoarthritis, Other (See Below) Other Musculoskeletal History: jaw problems, possible TMJ. 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 Psychiatric History: Reports: ADHD, Anxiety, Bipolar, Depression, Panic Attack, Psych Hospitalization(s), PTSD, Suicide Attempt Other Psychiatric History: paranoia Endocrine/Metabolic History: Reports: Obesity/BMI 30+ Hematologic History: Reports: Blood Transfusion(s) Dermatologic History: Reports: Eczema - Infectious Disease History Infectious Disease History: Reports: Chicken Pox, Shingles - Past Surgical History GI Surgical History: Reports: Colonoscopy, Small Bowel, Other (See Below) Other GI Surgeries/Procedures: NEC. States he had intestinal surgery as a , had colostomy as infant. Social & Family History - Tobacco Use Tobacco Use Within Last Twelve Months: Vaping - Caffeine Use Caffeine Use: Reports: Energy Drinks, Soda (Heavy caffeine use) - Alcohol Use Alcohol Use History: No Alcohol Use in Last Twelve Months: No Alcohol Use Comment: No alcohol use for the past 4 years. - Recreational Drug Use Recreational Drug Use: No - Living Situation & Occupation Living situation: Reports: Alone Occupation: Unemployed ED ROS GENERAL - Review of Systems Review Of Systems: See Below Constitutional: Reports: Malaise, Weakness HEENT: Reports: No Symptoms Respiratory: Reports: Shortness of Breath, Pleuritic Chest Pain Cardiovascular: Reports: Chest Pain Endocrine: Reports: Fatigue GI/Abdominal: Reports: Nausea. Denies: Vomiting : Reports: No Symptoms Musculoskeletal: Reports: No Symptoms Skin: Reports: No Symptoms Neurological: Reports: No Symptoms Hematologic/Lymphatic: Reports: No Symptoms Immunologic: Reports: No Symptoms ED EXAM, GENERAL - Physical Exam Exam: See Below Exam Limited By: No Limitations General Appearance: Alert, WD/WN, Mild Distress, Other (Nontoxic appearing) Eye Exam: Bilateral Eye: EOMI, Normal Inspection, Other (Sclera are anicteric) Ears: Normal External Exam, Hearing Grossly Normal Ear Exam: Bilateral Ear: Auricle Normal Nose: Normal Inspection, Normal Mucosa, No Blood Throat/Mouth: Normal Inspection, Normal Oropharynx, Normal Voice, No Airway Comp romise Head: Atraumatic, Normocephalic Neck: Normal Inspection, Supple, Non-Tender, Full Range of Motion Respiratory/Chest: No Respiratory Distress, Lungs Clear, Normal Breath Sounds, No Accessory Muscle Use, Other (Tender to palpation over the left parasternal chest that reproduces the pain that he is describing.) Peripheral Pulses: 2+: Radial (L), Radial (R) GI/Abdominal: Normal Bowel Sounds, Soft, Non-Tender, No Mass Back Exam: Normal Inspection Extremities: Normal Inspection, Normal Range of Motion, Non-Tender, Normal Capillary Refill Neurological: Alert, Oriented, CN II-XII Intact, Normal Cognition, No Motor/Sensory Deficits Psychiatric: Normal Affect Skin Exam: Warm, Dry, Intact, Normal Color, No Rash Lymphatic: No Adenopathy EKG INTERPRETATION EKG Date: 01/05/20 Time: 19:35 Rhythm: NSR Rate (Beats/Min): 59 Chilo: LAD-Left Chilo Deviation P-Wave: Present QRS: Normal ST-T: Other (Poor R-wave progression. No ST segment flattening in III and aVF.) QT: Normal Comparison: NA - No Prior EKG EKG Interpretation Comments: EKG #2 (8:43 PM): This showed a normal sinus rhythm with a rate of 66 and there were no changes in this EKG from the previous EKG performed today. Course - Vital Signs Last Recorded V/S: Last Vital Signs Temp Pulse 60 01/05/20 19:20 Resp 20 01/05/20 19:20 BP 163/98 H 01/05/20 19:20 Pulse Ox 98 01/05/20 19:20 - Orders/Labs/Meds Orders: Active Orders 24 hr Category Date Time Status EKG Documentation Completion [RC] ASDIRECTED Care 01/05/20 19:37 Active EKG Documentation Completion [RC] ASDIRECTED Care 01/05/20 20:43 Active Chest 1V Frontal [CR] Stat Exams 01/05/20 19:36 Taken EKG 12 Lead [EK] Routine Ther 01/05/20 19:36 Ordered EKG 12 Lead [EK] Routine Ther 01/05/20 20:43 Ordered Labs: Laboratory Tests 01/05/20 01/05/20 01/05/20 Range/Units 20:00 20:00 20:00 WBC (4.5-12.0) X10-3/uL RBC (4.30-5.75) x10(6)uL Hgb (13.5-17.8) g/dL Hct (30.0-51.3) % MCV (80-96) fL MCH (27.7-33.6) pg MCHC (32.2-35.4) g/dL RDW (11.5-15.5) % Plt Count (125-369) X10(3)uL MPV (7.4-10.4) fL Neut % (Auto) (46-82) % Lymph % (Auto) (13-37) % [place] % (Auto) (4-12) % Eos % (Auto) (1.0-5.0) % Baso % (Auto) (0-2) % Neut # (Auto) (1.6-8.3) # Lymph # (Auto) (0.6-5.0) # [place] # (Auto) (0.0-1.3) # Eos # (Auto) (0.0-0.8) # Baso # (Auto) (0.0-0.2) # D-Dimer, Quantitative < 0.19 (0.0-0.59) mg/LFEU Sodium 138 (135-145) mmol/L Potassium 2.6 L* (3.5-5.3) mmol/L Chloride 100 (100-110) mmol/L Carbon Dioxide 26 (21-32) mmol/L BUN 12 (7-18) mg/dL Creatinine 1.1 (0.70-1.30) mg/dL Est Cr Clr Drug Dosing 86.59 mL/min Estimated GFR (MDRD) > 60 (>60) BUN/Creatinine Ratio 10.9 (9-20) Glucose 92 (80-116) mg/dL Calcium 9.7 (8.6-10.2) mg/dL Magnesium 2.0 (1.8-2.5) mg/dL Total Bilirubin 0.7 (0.1-1.3) mg/dL AST 33 H D (5-25) IU/L ALT 61 H (12-36) U/L Alkaline Phosphatase 41 L (56-112) IU/L Troponin I 9.7 (4.0-60.3) pg/mL Total Protein 6.8 (6.0-8.0) g/dL Albumin 4.1 (3.5-5.2) g/dL Globulin 2.7 g/dL Albumin/Globulin Ratio 1.5 //20 Range/Units 20:30 WBC 5.8 (4.5-12.0) X10-3/uL RBC 4.98 (4.30-5.75) x10(6)uL Hgb 14.8 (13.5-17.8) g/dL Hct 44.1 (30.0-51.3) % MCV 88.5 (80-96) fL MCH 29.6 (27.7-33.6) pg MCHC 33.5 (32.2-35.4) g/dL RDW 12.1 (11.5-15.5) % Plt Count 201 (125-369) X10(3)uL MPV 7.8 (7.4-10.4) fL Neut % (Auto) 69.9 (46-82) % Lymph % (Auto) 21.0 (13-37) % [place] % (Auto) 6.9 (4-12) % Eos % (Auto) 2 (1.0-5.0) % Baso % (Auto) 0 (0-2) % Neut # (Auto) 4.1 (1.6-8.3) # Lymph # (Auto) 1.2 (0.6-5.0) # [place] # (Auto) 0.4 (0.0-1.3) # Eos # (Auto) 0.1 (0.0-0.8) # Baso # (Auto) 0.0 (0.0-0.2) # D-Dimer, Quantitative (0.0-0.59) mg/LFEU Sodium (135-145) mmol/L Potassium (3.5-5.3) mmol/L Chloride (100-110) mmol/L Carbon Dioxide (21-32) mmol/L BUN (7-18) mg/dL Creatinine (0.70-1.30) mg/dL Est Cr Clr Drug Dosing mL/min Estimated GFR (MDRD) (>60) BUN/Creatinine Ratio (9-20) Glucose (80-116) mg/dL Calcium (8.6-10.2) mg/dL Magnesium (1.8-2.5) mg/dL Total Bilirubin (0.1-1.3) mg/dL AST (5-25) IU/L ALT (12-36) U/L Alkaline Phosphatase (56-112) IU/L Troponin I (4.0-60.3) pg/mL Total Protein (6.0-8.0) g/dL Albumin (3.5-5.2) g/dL Globulin g/dL Albumin/Globulin Ratio Meds: Medications Discontinued Medications Generic Name Dose Route Start Last Admin Trade Name Freq PRN Reason Stop Dose Admin Aspirin 324 mg 01/05/20 19:37 01/05/20 19:45 Aspirin PO 01/05/20 19:38 324 mg ONETIME ONE Administration Potassium Chloride 40 meq 01/05/20 20:28 01/05/20 20:35 Potassium Chloride Solution PO 01/05/20 20:29 40 meq ONETIME ONE Administration - Radiology Interpretation Free Text/Narrative:: Portable chest x-ray showed no acute disease. - Re-Assessments/Exams Free Text/Narrative Re-Assessment/Exam: 01/05/20 20:40: Patient's initial EKG did not show an acute injury pattern but did show poor R-wave progression and ST changes and there is no previous EKG for comparison. The chest pain pattern that he is having appears to be musculoskeletal in nature and a troponin was normal. Potassium was low and this has been a recurrent problem in the past and is possibly due to to the hydrochlorothiazide that he takes. He was given 40 mEq of potassium orally in the emergency department. His other blood tests including a d-dimer were normal as well. His blood pressure does remain elevated. I discussed with the patient that although his initial heart enzyme test was normal, it is unclear if there is any problem with his heart at this time it would be prudent to admit him for serial heart enzyme tests. He is not wanting to do this. I have discussed the risks of not doing this (possible undiagnosed heart attack, significant morbidity and even mortality) and he is aware of these risks but with still would not want to stay and would wish to go home and follow-up with his primary doctor. I will repeat the patient's EKG at this time. 01/05/20 21:00: Patient's repeat EKG is unchanged from the previous EKG. I discussed this with the patient and rediscussed my concerns about EKG and his symptoms and he is still wanting to go home at this time. I will give the porfirio ent a prescription of potassium 20 mEq to be taken twice daily for the next 3 days and then daily thereafter. He has also advised to decrease his caffeine intake significantly and also to stop using nicotine. He is also encouraged to follow-up with Dr. Flores, his primary provider on Tuesday of this week. Precautions and reasons for return to the emergency department were discussed with the patient while he was in the emergency department and were detailed in his discharge instructions. Departure - Departure Time of Disposition: 21:05 Disposition: Home, Self-Care 01 Condition: Good Clinical Impression: Chest pain, musculoskeletal, Uncontrolled hypertension, Hypokalemia, Caffeine abuse Nicotine addiction Qualifiers: Nicotine product type: unspecified Substance use status: unspecified nicotine- induced disorder Qualified Code(s): F17.209 - Nicotine dependence, unspecified, with unspecified nicotine-induced disorders - Discharge Information Prescriptions: Potassium Chloride [K-Tab ER] 20 meq PO ASDIRECTED #33 tablet.er Instructions: Chest Wall Pain, [id number], Nonspecific Chest Pain, Adult, [id number], Hypertension, Adult, [id number] Referrals: Eliel Flores MD [Physician] - Forms: ED Department Discharge Additional Instructions: You have a low potassium. We did give you replacement potassium in the emergency department and I am giving you a prescription for potassium to take daily. Your other blood tests were all reassuringly normal. As we discussed, your EKG not showing any definite heart attack pattern but it was not completely normal. I had no previous EKG for comparison. The pain that you aren't having in your chest appears to be chest wall pain and not related to your heart however. Your blood pressure was also elevated while here and is not well-controlled. I think that your overuse of caffeine and your use of nicotine is also having some of your symptoms or making them worse. You definitely need to follow-up with your primary doctor the beginning of this week. Back to the emergency department for trouble breathing, unrelenting vomiting, worsening weakness, worsening pain or any other concerning sign or symptom. Sepsis Event Note (ED) - Focused Exam Vital Signs: Vital Signs Pulse Resp BP Pulse Ox 01/05/20 19:20 60 20 163/98 H 98 - My Orders Last 24 Hours: My Active Orders 01/05/20 19:36 Chest 1V Frontal [CR] Stat EKG 12 Lead [EK] Routine 01/05/20 19:37 EKG Documentation Completion [RC] ASDIRECTED 01/05/20 20:43 EKG Documentation Completion [RC] ASDIRECTED EKG 12 Lead [EK] Routine - Assessment/Plan Last 24 Hours: My Active Orders 01/05/20 19:36 Chest 1V Frontal [CR] Stat EKG 12 Lead [EK] Routine 01/05/20 19:37 EKG Documentation Completion [RC] ASDIRECTED 01/05/20 20:43 EKG Documentation Completion [RC] ASDIRECTED EKG 12 Lead [EK] Routine
[2020-01-05] MEDS ORDERED: Aspirin 81 MG Tab.Chew PO ONE (19:37)
[2020-01-05] MEDS ORDERED: Potassium Chloride 10% 20 MEQ/15 ML Soln 15 ML UD Cup PO ONE (20:28)
[2020-01-05 21:30] VITALS: BP 154/105; PULSE 67
--- NOTE | 2020-01-07 10:47 | CR ---
CHEST ONE VIEW INDICATION: Chest pain. AP upright portable view of the chest was obtained 01/06/2020 and compared with 02/13/2019. An appearance suggesting exogenous obesity is noted. The heart appeared normal in size and shape. The aorta is slightly tortuous with a question of some minimal calcification in the arch. Overlying EKG leads are noted. An active infiltrate or effusion was not identified. IMPRESSION: No acute process. MTDD
== END 2020-01-05 21:15 | disposition home or self-care (01) ==
LOC: FB.ED 19:18
DX: R07.89 Other chest pain (principal); I10 Essential (primary) hypertension; E87.6 Hypokalemia; F15.10 Other stimulant abuse, uncomplicated; F17.209 Nicotine dependence, unspecified, with unspecified nicotine-induced disorders; J45.909 Unspecified asthma, uncomplicated; F41.9 Anxiety disorder, unspecified; F31.9 Bipolar disorder, unspecified; E66.9 Obesity, unspecified; Z68.38 Body mass index [BMI] 38.0-38.9, adult; Z88.1 Allergy status to other antibiotic agents; Z88.0 Allergy status to penicillin; Z91.010 Allergy to peanuts; Z88.8 Allergy status to other drugs, medicaments and biological substances; Z91.011 Allergy to milk products; Z79.899 Other long term (current) drug therapy
CPT/HCPCS: 36415; 71045; 80053; 83735; 84484; 85025; 85379; 93005; 99285; A9270; 93010; 99284

== ENCOUNTER 2020-09-02 00:28 | Emergency (ER) | payer MEDICARE, MEDICAID | END 2020-09-02 00:48 | disposition left against medical advice (07) | LOC: FB.ED 00:28 | DX: Z53.21 Procedure and treatment not carried out due to patient leaving prior to being seen by health care provider (principal) ==

== ENCOUNTER 2020-09-11 21:03 | Emergency (ER) | payer MEDICARE, MEDICAID ==
[2020-09-11 21:22] VITALS: PULSE 72
--- NOTE | 2020-09-11 21:47 | EDM.PDOC ---
ED HPI GENERAL MEDICAL PROBLEM - General Chief Complaint: Skin Complaint Stated Complaint: BRUISE ON RIGHT ARM Time Seen by Provider: 09/11/20 21:15 Source of Information: Reports: Patient History Limitations: Reports: No Limitations - History of Present Illness INITIAL COMMENTS - FREE TEXT/NARRATIVE: c/o dry skin pt has eczema there are 2 areas of redness in the L antecubital fossa, he had used Lotrimin for 10d, now has switched to Cortisone-10 for the past 2d - Related Data Allergies Allergy/AdvReac Type Severity Reaction Status Date / Time amoxicillin Allergy Rash Verified 01/05/20 19:43 Penicillins Allergy Rash Verified 01/05/20 19:43 povidone-iodine Allergy Rash Verified 01/05/20 19:43 [From Betadine] soap [From Betadine] Allergy Rash Verified 01/05/20 19:43 lactose intolerant Allergy Digestion Uncoded 12/26/19 14:13 Problems peanut butter Allergy Stomach Uncoded 12/26/19 14:13 Upset Home Meds: Home Meds Citalopram Hydrobromide [Celexa] 40 mg PO DAILY 03/05/16 [History] Hydrochlorothiazide 50 mg PO DAILY 06/06/16 [History] Albuterol [Ventolin HFA] 2 puff INH Q4H PRN 03/30/18 [History] clonazePAM [Klonopin] 0.5 mg PO BID PRN #6 tablet 05/19/19 [Rx] Potassium Chloride [K-Tab ER] 20 meq PO ASDIRECTED #33 tablet.er 01/05/20 [Rx] Potassium Gluconate [Potassium] 49.5 mg PO DAILY 01/05/20 [History] Past Medical History - Past Health History Medical/Surgical History: Denies Medical/Surgical History HEENT History: Reports: Otitis Media Cardiovascular History: Reports: Hypertension Respiratory History: Reports: Asthma Gastrointestinal History: Reports: GERD, Other (See Below) Other Gastrointestinal History: Lactose intolerance. Chronic left lower quad pain. Genitourinary History: Reports: Renal Calculus Musculoskeletal History: Reports: Arthritis, Back Pain, Chronic, Fracture, Osteoarthritis, Other (See Below) Other Musculoskeletal History: jaw problems, possible TMJ. 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 Psychiatric History: Reports: ADHD, Anxiety, Bipolar, Depression, Panic Attack, Psych Hospitalization(s), PTSD, Suicide Attempt Other Psychiatric History: paranoia Endocrine/Metabolic History: Reports: Obesity/BMI 30+ Hematologic History: Reports: Blood Transfusion(s) Dermatologic History: Reports: Eczema - Infectious Disease History Infectious Disease History: Reports: Chicken Pox, Shingles - Past Surgical History Head Surgeries/Procedures: Reports: None GI Surgical History: Reports: Colonoscopy, Small Bowel, Other (See Below) Other GI Surgeries/Procedures: NEC. States he had intestinal surgery as a , had colostomy as infant. Male Surgical History: Reports: None Neurological Surgical History: Reports: None Musculoskeletal Surgical History: Reports: Other (See Below) Other Musculoskeletal Surgeries/Procedures:: Left rotator cuff injury. Oncologic Surgical History: Reports: None Social & Family History - Family History Family Medical History: No Pertinent Family History - Caffeine Use Caffeine Use: Reports: Energy Drinks, Soda (Heavy caffeine use) - Living Situation & Occupation Living situation: Reports: Alone Occupation: Unemployed ED ROS GENERAL - Review of Systems Review Of Systems: See Below Constitutional: Reports: No Symptoms HEENT: Reports: No Symptoms Respiratory: Reports: No Symptoms Cardiovascular: Reports: No Symptoms Endocrine: Reports: No Symptoms GI/Abdominal: Reports: No Symptoms : Reports: No Symptoms Musculoskeletal: Reports: No Symptoms Skin: Reports: Rash Neurological: Reports: No Symptoms Psychiatric: Reports: No Symptoms Hematologic/Lymphatic: Reports: No Symptoms Immunologic: Reports: No Symptoms ED EXAM, SKIN/RASH Exam: See Below Exam Limited By: No Limitations General Appearance: Alert, WD/WN, No Apparent Distress Skin: Other (multiple tattoes, red flush and inc'd dryness of hands, UEs and face c/w freq cleaning which pt does, trunk is moist without dermatographism, L antecubital fossa with 2 slight pink 3 cm areas of dry, no central clearing) Course - Vital Signs Last Recorded V/S: Last Vital Signs Temp 36.6 C 09/11/20 21:03 Pulse 72 09/11/20 21:03 Resp 18 09/11/20 21:03 BP Pulse Ox 100 09/11/20 21:03 - Re-Assessments/Exams Free Text/Narrative Re-Assessment/Exam: 09/11/20 21:45 typical eczema of UEs and face, slight nodular component of 3-4 mm x 2 mm of face, slight thick keratin layer with inc'd dryness of hands where he washes the most long discussion of eczema, pt declined rx steroids, he is satisfied with Cortisone-10 no evidence of bacterial or fungal infection, which was pt's concern Departure - Departure Time of Disposition: 21:40 Disposition: Home, Self-Care 01 Condition: Good Clinical Impression: Eczema - Discharge Information *PRESCRIPTION DRUG MONITORING PROGRAM REVIEWED*: Not Applicable *COPY OF PRESCRIPTION DRUG MONITORING REPORT IN PATIENT VONDA: Not Applicable Instructions: Eczema Referrals: PCP,None [Primary Care Provider] - Additional Instructions: Continue the Cortisone-10 for 1-2 times a day for 10-14 days. Avoid soaps. Avoid friction and rubbing. Use thin layer of moisturizer daily. Use thin layer of olive oil daily. See your doctor in 2 weeks as needed. Sepsis Event Note (ED) - Evaluation Sepsis Screening Result: No Definite Risk - Focused Exam Vital Signs: Vital Signs Temp Pulse Resp Pulse Ox 09/11/20 21:03 36.6 C 72 18 100
== END 2020-09-11 21:43 | disposition home or self-care (01) ==
LOC: FB.ED 21:03
DX: L30.9 Dermatitis, unspecified (principal); I10 Essential (primary) hypertension; J45.909 Unspecified asthma, uncomplicated; E66.9 Obesity, unspecified; Z68.25 Body mass index [BMI] 25.0-25.9, adult; Z88.0 Allergy status to penicillin; Z88.1 Allergy status to other antibiotic agents; Z91.011 Allergy to milk products; Z91.010 Allergy to peanuts; Z91.048 Other nonmedicinal substance allergy status
CPT/HCPCS: 99282

== ENCOUNTER 2020-10-28 22:47 | Emergency (ER) | payer MEDICARE, MEDICAID ==
[2020-10-28 23:01] VITALS: BP 175/105; PULSE 87
--- NOTE | 2020-10-28 23:33 | EDM.PDOC ---
ED HPI GENERAL MEDICAL PROBLEM - General Chief Complaint: General Stated Complaint: DIFFICULTY BREATHING Time Seen by Provider: 10/28/20 23:00 Source of Information: Reports: Patient History Limitations: Reports: No Limitations - History of Present Illness INITIAL COMMENTS - FREE TEXT/NARRATIVE: Patient presented to the ED because of epigastric pain, bloating . He said he is also feeling anxious and stressed out because the hot water in his Apt was cut off. He is also hyperventilating and c/o dyspnea. Abdominal Pain Score (Numeric/FACES): 8 - Related Data Allergies Allergy/AdvReac Type Severity Reaction Status Date / Time amoxicillin Allergy Rash Verified 01/05/20 19:43 Penicillins Allergy Rash Verified 01/05/20 19:43 povidone-iodine Allergy Rash Verified 01/05/20 19:43 [From Betadine] soap [From Betadine] Allergy Rash Verified 01/05/20 19:43 lactose intolerant Allergy Digestion Uncoded 12/26/19 14:13 Problems peanut butter Allergy Stomach Uncoded 12/26/19 14:13 Upset Home Meds: Home Meds Citalopram Hydrobromide [Celexa] 40 mg PO DAILY 03/05/16 [History] Hydrochlorothiazide 50 mg PO DAILY 06/06/16 [History] Albuterol [Ventolin HFA] 2 puff INH Q4H PRN 03/30/18 [History] clonazePAM [Klonopin] 0.5 mg PO BID PRN #6 tablet 05/19/19 [Rx] Potassium Chloride [K-Tab ER] 20 meq PO ASDIRECTED #33 tablet.er 01/05/20 [Rx] Potassium Gluconate [Potassium] 49.5 mg PO DAILY 01/05/20 [History] Omeprazole 20 mg PO DAILY #60 tablet. 10/28/20 [Rx] Past Medical History - Past Health History Medical/Surgical History: Denies Medical/Surgical History HEENT History: Reports: Otitis Media Cardiovascular History: Reports: Hypertension Respiratory History: Reports: Asthma Gastrointestinal History: Reports: GERD, Other (See Below) Other Gastrointestinal History: Lactose intolerance. Chronic left lower quad pain. Genitourinary History: Reports: Renal Calculus Musculoskeletal History: Reports: Arthritis, Back Pain, Chronic, Fracture, Osteoarthritis, Other (See Below) Other Musculoskeletal History: jaw problems, possible TMJ. 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 Psychiatric History: Reports: ADHD, Anxiety, Bipolar, Depression, Panic Attack, Psych Hospitalization(s), PTSD, Suicide Attempt Other Psychiatric History: paranoia Endocrine/Metabolic History: Reports: Obesity/BMI 30+ Hematologic History: Reports: Blood Transfusion(s) Dermatologic History: Reports: Eczema - Infectious Disease History Infectious Disease History: Reports: Chicken Pox, Shingles - Past Surgical History Head Surgeries/Procedures: Reports: None GI Surgical History: Reports: Colonoscopy, Small Bowel, Other (See Below) Other GI Surgeries/Procedures: NEC. States he had intestinal surgery as a , had colostomy as . Male Surgical History: Reports: None Neurological Surgical History: Reports: None Musculoskeletal Surgical History: Reports: Other (See Below) Other Musculoskeletal Surgeries/Procedures:: Left rotator cuff injury. Oncologic Surgical History: Reports: None Social & Family History - Family History Family Medical History: No Pertinent Family History - Tobacco Use Tobacco Use Status *Q: Never Tobacco User - Caffeine Use Caffeine Use: Reports: Coffee, Energy Drinks, Soda - Recreational Drug Use Recreational Drug Use: No - Living Situation & Occupation Living situation: Reports: Alone Occupation: Unemployed ED ROS GENERAL - Review of Systems Review Of Systems: See Below Constitutional: Reports: No Symptoms HEENT: Reports: No Symptoms Respiratory: Reports: Shortness of Breath Cardiovascular: Reports: No Symptoms Endocrine: Reports: No Symptoms GI/Abdominal: Reports: Abdominal Pain : Reports: No Symptoms Musculoskeletal: Reports: No Symptoms Skin: Reports: No Symptoms Neurological: Reports: No Symptoms Psychiatric: Reports: No Symptoms ED EXAM, GENERAL - Physical Exam Exam: See Below Exam Limited By: No Limitations General Appearance: Alert, No Apparent Distress Ears: Normal External Exam, Normal Canal Nose: Normal Inspection, Normal Mucosa, No Blood Throat/Mouth: Normal Inspection, Normal Lips, Normal Teeth Head: Atraumatic, Normocephalic Neck: Normal Inspection, Supple, Non-Tender, Full Range of Motion Respiratory/Chest: No Respiratory Distress, Lungs Clear, Normal Breath Sounds Cardiovascular: Normal Peripheral Pulses, Regular Rate, Rhythm, No Edema, No Gallop GI/Abdominal: Normal Bowel Sounds, Soft, Non-Tender Back Exam: Normal Inspection, Full Range of Motion Extremities: Normal Inspection, Normal Range of Motion, Non-Tender Neurological: Alert, Oriented, CN II-XII Intact, Normal Cognition, Normal Gait, Normal Reflexes, No Motor/Sensory Deficits Course - Vital Signs Text/Narrative:: Patient refused to have GI cocktail, Ativan Last Recorded V/S: Last Vital Signs Temp 36.4 C 10/28/20 22:58 Pulse 87 10/28/20 22:58 Resp 20 10/28/20 22:58 BP 175/105 H 10/28/20 22:58 Pulse Ox 98 10/28/20 22:58 Departure - Departure Time of Disposition: 23:30 Disposition: Home, Self-Care 01 Condition: Good Clinical Impression: GERD (gastroesophageal reflux disease), Anxiety reaction - Discharge Information Prescriptions: Omeprazole 20 mg PO DAILY #60 tablet.dr Instructions: Food Choices for Gastroesophageal Reflux Disease, Adult Referrals: PCP,None [Primary Care Provider] - Forms: ED Department Discharge Additional Instructions: Please read discharge instructions on GERD and Anxiety Take omeprazole 20 mg daily with the famotidine Cut off on your caffeine, beverages and food that can aggravate acid reflux(see list) Follow up as needed Sepsis Event Note (ED) - Evaluation Sepsis Screening Result: No Definite Risk - Focused Exam Vital Signs: Vital Signs Temp Pulse Resp BP Pulse Ox 10/28/20 22:58 36.4 C 87 20 175/105 H 98
== END 2020-10-28 23:40 | disposition home or self-care (01) ==
LOC: FB.ED 22:47
DX: K21.9 Gastro-esophageal reflux disease without esophagitis (principal); F41.1 Generalized anxiety disorder; I10 Essential (primary) hypertension; E66.9 Obesity, unspecified; Z68.30 Body mass index [BMI] 30.0-30.9, adult; Z88.0 Allergy status to penicillin; Z91.010 Allergy to peanuts; Z91.011 Allergy to milk products; Z91.048 Other nonmedicinal substance allergy status; Z91.040 Latex allergy status; Z79.899 Other long term (current) drug therapy
CPT/HCPCS: 99283

== ENCOUNTER 2021-01-25 13:56 | Emergency (ER) | payer MEDICARE, MEDICAID ==
[2021-01-25 14:45] VITALS: PULSE 88
--- NOTE | 2021-01-25 14:47 | EDM.PDOC ---
ED HPI GENERAL MEDICAL PROBLEM - General Chief Complaint: ENT Problem Stated Complaint: TOOTH ACHE Time Seen by Provider: 01/25/21 14:43 Source of Information: Reports: Patient, Old Records, RN History Limitations: Reports: No Limitations - History of Present Illness INITIAL COMMENTS - FREE TEXT/NARRATIVE: Dental pain for months, now worse since last night not relieved with ibuprofen. No fever or facial swelling. Does have a dentist. Onset: Gradual Duration: Week(s):, Getting Worse Location: Reports: Face Quality: Reports: Ache Severity: Severe Improves with: Reports: None Worsens with: Reports: Other (time) Context: Reports: Other (See HPI) Associated Symptoms: Reports: No Other Symptoms. Denies: Fever/Chills, Nausea/Vomiting Treatments [employer] CL[employer]: Reports: NSAIDS - Related Data Allergies Allergy/AdvReac Type Severity Reaction Status Date / Time amoxicillin Allergy Rash Verified 01/05/20 19:43 Penicillins Allergy Rash Verified 01/05/20 19:43 povidone-iodine Allergy Rash Verified 01/05/20 19:43 [From Betadine] soap [From Betadine] Allergy Rash Verified 01/05/20 19:43 lactose intolerant Allergy Digestion Uncoded 12/26/19 14:13 Problems peanut butter Allergy Stomach Uncoded 12/26/19 14:13 Upset Home Meds: Home Meds Citalopram Hydrobromide [Celexa] 40 mg PO DAILY 03/05/16 [History] Hydrochlorothiazide 50 mg PO DAILY 06/06/16 [History] Albuterol [Ventolin HFA] 2 puff INH Q4H PRN 03/30/18 [History] clonazePAM [Klonopin] 0.5 mg PO BID PRN #6 tablet 05/19/19 [Rx] Potassium Chloride [K-Tab ER] 20 meq PO ASDIRECTED #33 tablet.er 01/05/20 [Rx] Potassium Gluconate [Potassium] 49.5 mg PO DAILY 01/05/20 [History] Omeprazole 20 mg PO DAILY #60 tablet. 10/28/20 [Rx] Acetaminophen/oxyCODONE [Percocet 325-5 MG] 1 - 2 each PO QID PRN #12 tab 01/25/21 [Rx] Clindamycin HCl 300 mg PO TID #29 capsule 01/25/21 [Rx] Past Medical History - Past Health History Medical/Surgical History: Denies Medical/Surgical History HEENT History: Reports: Otitis Media Cardiovascular History: Reports: Hypertension Respiratory History: Reports: Asthma Gastrointestinal History: Reports: GERD, Other (See Below) Other Gastrointestinal History: Lactose intolerance. Chronic left lower quad pain. Genitourinary History: Reports: Renal Calculus Musculoskeletal History: Reports: Arthritis, Back Pain, Chronic, Fracture, Osteoarthritis, Other (See Below) Other Musculoskeletal History: jaw problems, possible TMJ. 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 Psychiatric History: Reports: ADHD, Anxiety, Bipolar, Depression, Panic Attack, Psych Hospitalization(s), PTSD, Suicide Attempt Other Psychiatric History: paranoia Endocrine/Metabolic History: Reports: Obesity/BMI 30+ Hematologic History: Reports: Blood Transfusion(s) Dermatologic History: Reports: Eczema - Infectious Disease History Infectious Disease History: Reports: Chicken Pox, Shingles - Past Surgical History Head Surgeries/Procedures: Reports: None GI Surgical History: Reports: Colonoscopy, Small Bowel, Other (See Below) Other GI Surgeries/Procedures: NEC. States he had intestinal surgery as a , had colostomy as infant. Male Surgical History: Reports: None Neurological Surgical History: Reports: None Musculoskeletal Surgical History: Reports: Other (See Below) Other Musculoskeletal Surgeries/Procedures:: Left rotator cuff injury. Oncologic Surgical History: Reports: None Social & Family History - Family History Family Medical History: No Pertinent Family History - Caffeine Use Caffeine Use: Reports: Coffee, Energy Drinks, Soda - Living Situation & Occupation Living situation: Reports: Alone Occupation: Unemployed ED ROS ENT - Review of Systems Review Of Systems: See Below Constitutional: Reports: No Symptoms. Denies: Fever, Chills HEENT: Reports: Dental Pain GI/Abdominal: Denies: Nausea Skin: Reports: No Symptoms Neurological: Reports: No Symptoms ED EXAM, ENT - Physical Exam Exam: See Below Exam Limited By: No Limitations General Appearance: Alert, WD/WN, Mild Distress Eye Exam: Bilateral Eye: Normal Inspection Ears: Normal External Exam, Normal Canal, Hearing Grossly Normal Nose: Normal Inspection Mouth/Throat: Dental Pain, Dental Tenderness, Other (dental decay) Head: Atraumatic, Normocephalic. No: Facial Swelling Neck: No: Lymphadenopathy (R), Lymphadenopathy (L) Respiratory/Chest: No Respiratory Distress, Lungs Clear, Normal Breath Sounds Cardiovascular: Regular Rate, Rhythm, No Edema Extremities: Normal Inspection Neurological: Alert, Oriented, CN II-XII Intact, Normal Cognition, No Motor/Sensory Deficits Psychiatric: Normal Affect, Normal Mood Skin: Warm, Dry, Intact, Normal Color, No Rash Course - Orders/Labs/Meds Meds: Medications Discontinued Medications Generic Name Dose Route Start Last Admin Trade Name Freq PRN Reason Stop Dose Admin Clindamycin HCl 300 mg 01/25/21 14:39 Clindamycin Hcl 150 Mg Cap PO 01/25/21 14:40 ONETIME ONE Oxycodone/Acetaminophen 1 tab 01/25/21 14:39 Acetaminophen/Oxycodone 325-5 Mg Tab PO 01/25/21 14:40 ONETIME STA Departure - Departure Time of Disposition: 14:50 Disposition: Home, Self-Care 01 Condition: Fair Clinical Impression: Pain, dental - Discharge Information *PRESCRIPTION DRUG MONITORING PROGRAM REVIEWED*: No *COPY OF PRESCRIPTION DRUG MONITORING REPORT IN PATIENT VONDA: No Prescriptions: Clindamycin HCl 300 mg PO TID #29 capsule Acetaminophen/oxyCODONE [Percocet 325-5 MG] 1 - 2 each PO QID PRN #12 tab PRN Reason: Pain Instructions: Dental Pain, [id number] Referrals: Eliel Flores MD [Primary Care Provider] - Additional Instructions: Limit ibuprofen to 880 mg every 6 hrs with food. Add acetaminophen OR Percocet as needed. Take clindamycin as directed. Recheck with your provider dayana.
[2021-01-25] MEDS: Acetaminophen/oxyCODONE 325-5 MG Tab PO STA (14:56)
[2021-01-25] MEDS: Clindamycin HCl 150 MG Cap PO ONE (14:57)
[2021-01-25 15:17] VITALS: BP 138/90
== END 2021-01-25 15:05 | disposition home or self-care (01) ==
LOC: FB.ED 13:56
DX: K02.9 Dental caries, unspecified (principal); I10 Essential (primary) hypertension; K21.9 Gastro-esophageal reflux disease without esophagitis; E66.9 Obesity, unspecified; Z68.42 Body mass index [BMI] 45.0-49.9, adult; Z79.899 Other long term (current) drug therapy; Z88.0 Allergy status to penicillin; Z88.8 Allergy status to other drugs, medicaments and biological substances; Z91.048 Other nonmedicinal substance allergy status; Z91.011 Allergy to milk products; Z91.010 Allergy to peanuts
CPT/HCPCS: 99282; A9270

== ENCOUNTER 2021-01-26 17:08 | Emergency (ER) | payer MEDICARE, MEDICAID ==
--- NOTE | 2021-01-27 18:32 | PCM.SN.2 ---
- Free Text/Narrative Note: Patient left without being seen. He said he change his mind and don't know why he want to be seen in the ED. Time Documentation
== END 2021-01-26 17:30 | disposition left against medical advice (07) ==
LOC: FB.ED 17:08
DX: Z53.21 Procedure and treatment not carried out due to patient leaving prior to being seen by health care provider (principal)

== ENCOUNTER 2021-03-05 20:44 | Emergency (ER) | payer MEDICARE, MEDICAID ==
[2021-03-05] MEDS ORDERED: LORazepam 1 MG Tab PO ONE (21:13)
--- NOTE | 2021-03-05 21:21 | EDM.PDOC ---
ED HPI GENERAL MEDICAL PROBLEM - General Chief Complaint: General Stated Complaint: numbness Time Seen by Provider: 03/05/21 21:05 Source of Information: Reports: Patient History Limitations: Reports: No Limitations - History of Present Illness INITIAL COMMENTS - FREE TEXT/NARRATIVE: States he is feeling numbness and tingling all over: head, face around the mouth , hands, arms, legs , in rectal region Onset this pm state may be anxiety as he had had numbness and tingling with an anxiety episode in the past Concerned it it s elevated BP as he was prescribed lisinopril about 5 days ago but did no take it as he remembered it caused him to have a dry persistent cough BP elevated this evening so he decided to come in and get checked Onset: Today Onset Date: 03/05/21 Duration: Hour(s):, Getting Worse Location: Reports: Head, Face, Neck, Chest, Abdomen, Back, Pelvis, Generalized Quality: Reports: Same as Previous Episode Severity: Moderate Improves with: Reports: None Worsens with: Reports: None Associated Symptoms: Reports: Diaphoresis. Denies: Chest Pain, Cough, Malaise, Nausea/Vomiting, Shortness of Breath, Weakness Treatments [employer]IST: Reports: Other Medication(s) (took his regular medications) - Related Data Allergies Allergy/AdvReac Type Severity Reaction Status Date / Time amoxicillin Allergy Rash Verified 01/05/20 19:43 Penicillins Allergy Rash Verified 01/05/20 19:43 povidone-iodine Allergy Rash Verified 01/05/20 19:43 [From Betadine] soap [From Betadine] Allergy Rash Verified 01/05/20 19:43 lactose intolerant Allergy Digestion Uncoded 12/26/19 14:13 Problems peanut butter Allergy Stomach Uncoded 12/26/19 14:13 Upset Home Meds: Home Meds RX: Citalopram Hydrobromide [Celexa] 40 mg PO DAILY 03/05/16 [History] RX: Hydrochlorothiazide 50 mg PO DAILY 06/06/16 [History] RX: Albuterol [Ventolin HFA] 2 puff INH Q4H PRN 03/30/18 [History] RX: clonazePAM [Klonopin] 0.5 mg PO BID PRN #6 tablet 05/19/19 [Rx] RX: Potassium Chloride [K-Tab ER] 20 meq PO ASDIRECTED #33 tablet.er 08/22/20 [Rx] RX: Potassium Gluconate [Potassium] 49.5 mg PO DAILY 01/05/20 [History] RX: Omeprazole 20 mg PO DAILY #60 tablet. 10/28/20 [Rx] RX: Acetaminophen/oxyCODONE [Percocet 325-5 MG] 1 - 2 each PO QID PRN #12 tab 01/25/21 [Rx] RX: Clindamycin HCl 300 mg PO TID #29 capsule 01/25/21 [Rx] RX: Losartan [Cozaar] 100 mg PO DAILY #30 tab 03/05/21 [Rx] Past Medical History - Past Health History Medical/Surgical History: Denies Medical/Surgical History HEENT History: Reports: Otitis Media Cardiovascular History: Reports: Hypertension Respiratory History: Reports: Asthma Gastrointestinal History: Reports: GERD, Other (See Below) Other Gastrointestinal History: Lactose intolerance. Chronic left lower quad pain. Genitourinary History: Reports: Renal Calculus Musculoskeletal History: Reports: Arthritis, Back Pain, Chronic, Fracture, Osteoarthritis, Other (See Below) Other Musculoskeletal History: jaw problems, possible TMJ. 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 Psychiatric History: Reports: ADHD, Anxiety, Bipolar, Depression, Panic Attack, Psych Hospitalization(s), PTSD, Suicide Attempt Other Psychiatric History: paranoia Endocrine/Metabolic History: Reports: Obesity/BMI 30+ Hematologic History: Reports: Blood Transfusion(s) Dermatologic History: Reports: Eczema - Infectious Disease History Infectious Disease History: Reports: Chicken Pox, Shingles - Past Surgical History Head Surgeries/Procedures: Reports: None GI Surgical History: Reports: Colonoscopy, Small Bowel, Other (See Below) Other GI Surgeries/Procedures: NEC. States he had intestinal surgery as a , had colostomy as infant. Male Surgical History: Reports: None Neurological Surgical History: Reports: None Musculoskeletal Surgical History: Reports: Other (See Below) Other Musculoskeletal Surgeries/Procedures:: Left rotator cuff injury. Oncologic Surgical History: Reports: None Social & Family History - Family History Family Medical History: No Pertinent Family History - Caffeine Use Caffeine Use: Reports: Coffee, Soda - Living Situation & Occupation Living situation: Reports: Alone Occupation: Unemployed ED ROS GENERAL - Review of Systems Review Of Systems: Comprehensive ROS is negative, except as noted in HPI. Constitutional: Denies: Fever, Malaise, Weakness, Fatigue HEENT: Reports: No Symptoms. Denies: Throat Pain, Throat Swelling Respiratory: Reports: No Symptoms Cardiovascular: Reports: Blood Pressure Problem. Denies: Chest Pain, Dyspnea on Exertion, Edema, Lightheadedness, Palpitations Endocrine: Reports: No Symptoms. Denies: Fatigue GI/Abdominal: Denies: Anorexia, Diarrhea, Decreased Appetite, Distension, Flatus : Denies: Dysuria, Flank Pain Musculoskeletal: Denies: Neck Pain, Shoulder Pain, Back Pain, Hand Pain Skin: Denies: Jaundice, Diaphoresis Neurological: Reports: Numbness, Paresthesia, Weakness. Denies: Confusion, Trouble Speaking, Difficulty Walking Psychiatric: Reports: Anxiety, Mood Lability. Denies: Hallucinations, Homicidal Ideation, Suicidal Ideation Hematologic/Lymphatic: Reports: No Symptoms Immunologic: Reports: No Symptoms ED EXAM, GENERAL - Physical Exam Exam: See Below Exam Limited By: No Limitations General Appearance: Alert, WD/WN, No Apparent Distress, Anxious Eye Exam: Bilateral Eye: Abnormal EOM, EOMI Ears: Normal External Exam Ear Exam: Bilateral Ear: TM normal Nose: Normal Inspection Throat/Mouth: Normal Inspection, Normal Oropharynx Head: Atraumatic, Normocephalic Neck: Supple, Non-Tender Respiratory/Chest: No Respiratory Distress, Lungs Clear Cardiovascular: Normal Peripheral Pulses, Regular Rate, Rhythm GI/Abdominal: Soft, Non-Tender Back Exam: Normal Inspection, Full Range of Motion Extremities: Normal Inspection, Normal Range of Motion Neurological: Alert, Oriented, CN II-XII Intact Psychiatric: Anxious Skin Exam: Warm, Dry, Intact Lymphatic: No Adenopathy Course - Vital Signs Last Recorded V/S: Last Vital Signs Temp 36.2 C 03/05/21 20:59 Pulse Resp 18 03/05/21 20:59 BP 181/108 H 03/05/21 21:50 Pulse Ox - Orders/Labs/Meds Meds: Medications Discontinued Medications Generic Name Dose Route Start Last Admin Trade Name Freq PRN Reason Stop Dose Admin HCTZ/Losartan Potassium 1 tab 03/05/21 21:22 Hydrochlorothiazide/Losartan 12.5-100 Mg Tab PO 03/05/21 21:23 NOW STA Hydrochlorothiazide 25 mg 03/05/21 21:43 03/05/21 21:51 Hydrochlorothiazide 25 Mg Tab PO 03/05/21 21:44 25 mg ONETIME ONE Administration Lorazepam 1 mg 03/05/21 21:13 03/05/21 21:16 Lorazepam 1 Mg Tab PO 03/05/21 21:14 1 mg ONETIME ONE Administration Losartan Potassium 100 mg 03/05/21 21:44 03/05/21 21:50 Losartan 100 Mg Tab PO 03/05/21 21:45 100 mg NOW STA Administration Losartan Potassium Confirm 03/05/21 21:49 Losartan 50 Mg Tab Administered 03/05/21 21:50 Dose 100 mg .ROUTE .STK-MED ONE - Re-Assessments/Exams Free Text/Narrative Re-Assessment/Exam: 03/05/21 21:26 has had same symptoms in the past Will start with ativan then add anti-hypertensive 03/05/21 22:20 Numbness ad tingling resolved. BP decreasing , tolerated losartan Departure - Departure Time of Disposition: 10:20 Disposition: Home, Self-Care 01 Condition: Good Clinical Impression: Uncontrolled hypertension, Anxiety attack, Chronic anxiety - Discharge Information *PRESCRIPTION DRUG MONITORING PROGRAM REVIEWED*: Not Applicable *COPY OF PRESCRIPTION DRUG MONITORING REPORT IN PATIENT VONDA: Not Applicable Prescriptions: RX: Losartan [Cozaar] 100 mg PO DAILY #30 tab Instructions: How to Take Your Blood Pressure, [id number], Panic Attack, [id number], Hypertension, Adult, [id number], Preventing Hypertension Referrals: PCP,None [Primary Care Provider] - Forms: ED Department Discharge Sepsis Event Note (ED) - Evaluation Sepsis Screening Result: No Definite Risk - Focused Exam Vital Signs: Vital Signs Temp Resp BP BP 03/05/21 21:50 181/108 H 03/05/21 20:59 36.2 C 18 186/118 H
[2021-03-05] MEDS ORDERED: Hydrochlorothiazide/Losartan 12.5-100 mg Tab PO STA (21:22)
[2021-03-05] MEDS ORDERED: Hydrochlorothiazide 25 MG Tab PO ONE (21:43)
[2021-03-05] MEDS ORDERED: Losartan 100 MG Tab PO STA (21:44)
[2021-03-05] MEDS ORDERED: Losartan 50 MG Tab ONE (21:49)
[2021-03-05 21:51] VITALS: BP 181/108
== END 2021-03-05 22:30 | disposition home or self-care (01) ==
LOC: FB.ED 20:44
DX: F41.0 Panic disorder [episodic paroxysmal anxiety] (principal); K21.9 Gastro-esophageal reflux disease without esophagitis; I10 Essential (primary) hypertension; E66.9 Obesity, unspecified; Z68.37 Body mass index [BMI] 37.0-37.9, adult; Z91.048 Other nonmedicinal substance allergy status; Z88.0 Allergy status to penicillin; Z91.011 Allergy to milk products; Z91.010 Allergy to peanuts; Z79.899 Other long term (current) drug therapy
CPT/HCPCS: 99283; A9270

== ENCOUNTER 2022-03-19 20:44 | Emergency (ER) | payer MEDICARE, MEDICAID ==
[2022-03-19] MEDS ORDERED: Amiodarone 200 MG Tab PO ONE (20:50)
[2022-03-19] MEDS ORDERED: amLODIPine 10 MG Tab PO STA (21:14)
[2022-03-19 22:18] VITALS: BP 175/107; PULSE 75
== END 2022-03-19 22:38 | disposition home or self-care (01) ==
LOC: FB.ED 20:44
DX: I16.9 Hypertensive crisis, unspecified (principal); I10 Essential (primary) hypertension; E66.9 Obesity, unspecified; Z68.41 Body mass index [BMI] 40.0-44.9, adult; Z88.0 Allergy status to penicillin; Z91.041 Radiographic dye allergy status; Z91.011 Allergy to milk products; Z91.048 Other nonmedicinal substance allergy status; Z79.899 Other long term (current) drug therapy
CPT/HCPCS: 99283; A9270

== ENCOUNTER 2022-03-21 17:50 | Emergency (ER) | payer MEDICARE, MEDICAID ==
[2022-03-21 18:46] VITALS: PULSE 78
[2022-03-21 19:43] VITALS: BP 158/102
== END 2022-03-21 18:50 | disposition home or self-care (01) ==
LOC: FB.ED 17:50
DX: I10 Essential (primary) hypertension (principal); E66.9 Obesity, unspecified; Z68.39 Body mass index [BMI] 39.0-39.9, adult; Z88.0 Allergy status to penicillin; Z91.041 Radiographic dye allergy status; Z91.048 Other nonmedicinal substance allergy status; Z91.011 Allergy to milk products; Z91.010 Allergy to peanuts; Z79.899 Other long term (current) drug therapy
CPT/HCPCS: 99283

== ENCOUNTER 2022-09-26 21:30 | Emergency (ER) | payer MEDICARE, MEDICAID ==
[2022-09-26] MEDS ORDERED: Citalopram 20 MG Tab PO STA (22:13)
[2022-09-27 00:24] VITALS: BP 160/91
== END 2022-09-26 23:08 | disposition home or self-care (01) ==
LOC: FB.ED 21:30
DX: F41.9 Anxiety disorder, unspecified (principal); F32.A Depression, unspecified; I10 Essential (primary) hypertension; J45.909 Unspecified asthma, uncomplicated; E66.9 Obesity, unspecified; Z68.43 Body mass index [BMI] 50.0-59.9, adult; Z86.16 Personal history of COVID-19; Z79.899 Other long term (current) drug therapy; Z91.010 Allergy to peanuts; Z88.1 Allergy status to other antibiotic agents; Z88.0 Allergy status to penicillin; Z91.048 Other nonmedicinal substance allergy status; Z88.8 Allergy status to other drugs, medicaments and biological substances
CPT/HCPCS: 99283; A9270

== ENCOUNTER 2022-10-11 16:11 | Emergency (ER) | payer MEDICARE, MEDICAID ==
[2022-10-11 17:58] VITALS: BP 156/98; PULSE 68
== END 2022-10-11 16:35 | disposition left against medical advice (07) ==
LOC: FB.ED 16:11
DX: Z53.21 Procedure and treatment not carried out due to patient leaving prior to being seen by health care provider (principal)

== ENCOUNTER 2023-03-06 19:48 | Emergency (ER) | payer MEDICARE, MEDICAID ==
[2023-03-06] MEDS ORDERED: Gentamicin 0.3% Ophth Soln 5 ML Bottle EYEBOTH SCH (21:00)
== END 2023-03-06 20:38 | disposition home or self-care (01) ==
LOC: FB.ED 19:48
DX: H10.33 Unspecified acute conjunctivitis, bilateral (principal); E66.9 Obesity, unspecified; J45.909 Unspecified asthma, uncomplicated; Z88.0 Allergy status to penicillin; Z91.041 Radiographic dye allergy status; Z91.010 Allergy to peanuts; Z91.09 Other allergy status, other than to drugs and biological substances
CPT/HCPCS: 99282; A9270